=== PATIENT | female | born 1970 | race Caucasian/White ===

== ENCOUNTER 2019-10-08 09:09 | Outpatient (CLI) | payer OTHER, SELFPAY ==
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
--- NOTE | ~2019-10-08 | XR_ITS ---
EXAMINATION: XR hand RT min 3V EXAM DATE: 10/08/2019 09:40 INDICATION: No known recent injury provided at this time. Pain of the right hand. TECHNIQUE: Right hand frontal, lateral and oblique projections obtained and reviewed. There is no pr ior study for comparison. FINDINGS: Right metacarpal bones are unremarkable. There are no acute fractures or dislocations iden tified. There is no subcutaneous gas. The soft tissue is unremarkable. There are no radiopaque fo reign bodies. There is moderate ulnar minus variance. Scapholunate joint space is maintained. There are no bony erosions identified. IMPRESSION: Moderate right ulnar minus variance. Reviewed, dictated and finalized at location B. 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
== END 2019-10-08 09:10 | disposition home or self-care (01) ==
PROVIDERS: PCP Family Medicine; Visit Provider Nurse Practitioner Adult Health
DX: M79.641 Pain in right hand (principal); M54.5 Low back pain
CPT/HCPCS: 72114; 73130

== ENCOUNTER 2020-08-13 12:24 | Outpatient (NON) | payer OTHER, SELFPAY ==
[2020-08-13 23:24] LABS: SARS-CoV-2 RNA PCR Negative
== END 2020-08-13 12:25 ==
PROVIDERS: PCP Family Medicine; Visit Provider Family Medicine
DX: R50.9 Fever, unspecified (principal); R09.81 Nasal congestion; Z20.828 Contact with and (suspected) exposure to other viral communicable diseases
CPT/HCPCS: 87635; C9803; U0003

== ENCOUNTER 2020-11-05 15:09 | Outpatient (CLI) | payer OTHER, SELFPAY ==
--- NOTE | ~2020-11-05 | MM_ITS ---
EXAMINATION: MM screening depethi BI w tc HISTORY: Screening mammogram TECHNIQUE: Craniocaudal and mediolateral oblique 3-D tomosynthesis images were obtained and synthetic 2-D images were generated. CAD analysis was submitted and interpreted. COMPARISON: October 25, 2017 bilateral digital screening mammogram September 20, 2013 diagnostic bilateral digital mammogram and bilateral breast ultrasound August 02, 2013 bilateral digital screening mammogram BREAST PARENCHYMAL COMPOSITION: There are scattered areas of fibroglandular density. FINDINGS: There is no evidence of suspicious mass, calcification, or architectural distortion to sugg est malignancy in either breast. There has been no suspicious interval change. IMPRESSION: 1. No mammographic evidence of malignancy. 2. Recommend routine screening mammography in one year. BI-RADS Category 1: Negative Reviewed, dictated and finalized at location A. 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
== END 2020-11-05 15:10 | disposition home or self-care (01) ==
PROVIDERS: PCP Family Medicine; Visit Provider Student in an Organized Health Care Education/Training Program
DX: Z12.31 Encounter for screening mammogram for malignant neoplasm of breast (principal)
CPT/HCPCS: 77063; 77067

== ENCOUNTER 2020-11-06 12:40 | Outpatient (CLI) | payer OTHER, SELFPAY ==
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
== END 2020-11-06 12:41 | disposition home or self-care (01) ==
PROVIDERS: PCP Family Medicine; Visit Provider Plastic Surgery
DX: S66.40 Unspecified injury of intrinsic muscle, fascia and tendon of thumb at wrist and hand level (principal); X58.XXXA Exposure to other specified factors, initial encounter; M19.031 Primary osteoarthritis, right wrist
CPT/HCPCS: 73221

== ENCOUNTER 2023-02-20 00:04 | Day surgery (SDC) | payer BC, SELFPAY ==
[2023-02-10 13:21] VITALS: BMI 44.1
[2023-02-20 06:27] VITALS: BP 149/76; PULSE 81; RESP 18; TEMP 36.1; O2SAT 97; BMI 44.4
--- NOTE | 2023-02-20 06:35 | WPDANESEPPF ---
Anes - Initial Pre Proc Eval Procedure: Operation Date: 02/20/23 07:30 Proposed Procedures p Screening Colonoscopy - Frederick Manzano MD Date/Time: 02/20/23 06:35 Surgeon: Frederick Manzano MD Pre Op Diagnosis: neoplasm screening Patient Data Age: 52 Gender: F Height: 1.73 m Weight: 132.4 kg Last Vital Signs Temp 36.1 C L 02/20/23 06:27 Pulse 81 02/20/23 06:27 Resp 18 02/20/23 06:27 BP 149/76 H 02/20/23 06:27 Pulse Ox 97 02/20/23 06:27 O2 Del Method Room Air 02/20/23 06:27 Allergies Allergy/AdvReac Type Severity Reaction Status Date / Time erythromycin base Allergy Mild Gastrointestinal Verified 02/20/23 06:25 Upset Home Medications Medication Instructions Recorded Confirmed Type albuterol 90 mcg/actuation aerosol 90 mcg inhalation Q4H PRN 11/07/22 02/20/23 History inhaler Shortness Of Breath hydrochlorothiazide 25 mg tablet 25 mg PO DAILY 11/07/22 02/20/23 History losartan 100 mg tablet 100 mg PO DAILY 11/07/22 02/20/23 History montelukast 10 mg tablet 10 mg PO QHS 11/07/22 02/20/23 History orphenadrine citrate 100 mg 100 mg PO DAILY 11/07/22 02/20/23 History tablet,extended release semaglutide (weight loss) 0.5 0.5 mg (0.5 mL) subcut WEEKLY #2 mL 02/07/23 02/20/23 Rx mg/0.5 mL subcutaneous pen injector (Wegovy) cholecalciferol (vitamin D3) 25 25 mcg PO DAILY 02/10/23 02/20/23 History mcg (1,000 unit) tablet (Vitamin D3) fluticasone propionate 50 1 spray intranasal BID 02/10/23 02/20/23 History mcg/actuation nasal spray,suspension ibuprofen 800 mg tablet 800 mg PO HS 02/10/23 02/20/23 History magnesium glycinate 100 mg tablet 100 mg PO TID 02/10/23 02/20/23 History olopatadine 0.6 % nasal spray 2 spray intranasal DAILY 02/10/23 02/20/23 History Patient hx anesthesia problems: none Family hx anesthesia problems: none Results Review: All pre-operative results and documents have been reviewed as part of the pre-operative evaluation. [facility] Past Medical History Medical History (Updated 02/17/23 @ 14:52 by Jethro Carpenter DO) Allergic rhinitis, unspecified Amenorrhea, unspecified Asthma Asymptomatic premature menopause Body mass index [BMI] 36.0-36.9, adult Encounter for insertion of mirena IUD 2019 Essential (primary) hypertension GERD (gastroesophageal reflux disease) Insomnia, unspecified Mild intermittent asthma Morbid obesity Obstructive sleep apnea (adult) (pediatric) Sinusitis Vitamin D deficiency, unspecified Surgical History Surgical History History of ankle surgery History of dilation and curettage History of endometrial ablation Family History Family History (Updated 01/09/23 @ 15:32 by Yesica Morgan MA) Father Hypertension Lung cancer Heart disease Sibling Hypertension Mother Heart disease Fatty liver Social History Social History (Updated 01/09/23 @ 15:32 by Yesica Morgan MA) Smoking status: Never smoker Second hand tobacco smoke exposure: No Alcohol intake: current Alcohol use details: socially Substance use: never Substance use type: does not use Lack of Transportation: No Lack of Food: Never True Current Housing: I Have Housing Concerned About Future Housing: No Difficulty Paying Gas/Electric Bills: No Difficulty Paying for Meds: No Currently Unemployed: No Difficulty w/ Childcare or Family Care: No Living arrangements: with family Occupation/Education: occupation 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
[2023-02-20] MEDS: LACTATED RINGERS 1,000 ML 150 ML IV CONT (06:47)
--- NOTE | 2023-02-20 07:26 | PM.HPGS ---
History of Present Illness History of Present Illness Consent: Risks, benefits, and alternatives have been discussed and questions answered. Patient agrees to proceed with procedure. Chief complaint: neoplasm screening Narrative: Renee France is a 52 year old female here for screening colonoscopy Review of Systems Constitutional: Constitutional: Denies headache(s) and Denies weakness Eyes: Eyes: Denies blurry vision ENT: Reports Normal hearing present, Denies headache(s) and Denies neck pain Cardiovascular: Cardiovascular: Denies chest pain and Denies dyspnea Respiratory: Respiratory: Denies dyspnea Gastrointestinal: Gastrointestinal: Reports no additional gastrointestinal complaints Genitourinary: Genitourinary: Denies dysuria Musculoskeletal: Musculoskeletal: Denies neck pain Integumentary/Breasts: Skin/Breast: Denies dry skin Neurologic: Reports Normal hearing present, Denies headache(s) and Denies weakness Psychiatric: Psychiatric: Denies anxiety Endocrine: Endocrine: Denies change in body appearance Hematologic/Lymphatic: Hematologic/Lymphatic: Denies easy bleeding Allergic/Immunologic: Allergic/Immunologic: Denies urticaria PMFSH Past Medical History Medical History (Updated 02/20/23 @ 07:27 by Frederick Manzano MD) Allergic rhinitis, unspecified Amenorrhea, unspecified Asthma Asymptomatic premature menopause Body mass index [BMI] 36.0-36.9, adult Colon cancer screening Encounter for insertion of mirena IUD 2019 Essential (primary) hypertension GERD (gastroesophageal reflux disease) Insomnia, unspecified Mild intermittent asthma Morbid obesity Obstructive sleep apnea (adult) (pediatric) Sinusitis Vitamin D deficiency, unspecified Surgical History Surgical History History of ankle surgery History of dilation and curettage History of endometrial ablation Family History Family History (Updated 01/09/23 @ 15:32 by Yesica Morgan MA) Father Hypertension Lung cancer Heart disease Sibling Hypertension Mother Heart disease Fatty liver Social History Social History (Updated 01/09/23 @ 15:32 by Yesica Morgan MA) Smoking status: Never smoker Second hand tobacco smoke exposure: No Alcohol intake: current Alcohol use details: socially Substance use: never Substance use type: does not use Lack of Transportation: No Lack of Food: Never True Current Housing: I Have Housing Concerned About Future Housing: No Difficulty Paying Gas/Electric Bills: No Difficulty Paying for Meds: No Currently Unemployed: No Difficulty w/ Childcare or Family Care: No Living arrangements: with family Occupation/Education: occupation 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 Gender identity (if verbalized by the patient): Female Sexual Orientation (if Verbalized by the Patient): Straight or Heterosexual Spiritual care concerns: No Meds Home Medications and Allergies Home Medications Medication Instructions Recorded Confirmed Type albuterol 90 mcg/actuation aerosol 90 mcg inhalation Q4H PRN 11/07/22 02/20/23 History inhaler Shortness Of Breath hydrochlorothiazide 25 mg tablet 25 mg PO DAILY 11/07/22 02/20/23 History losartan 100 mg tablet 100 mg PO DAILY 11/07/22 02/20/23 History montelukast 10 mg tablet 10 mg PO QHS 11/07/22 02/20/23 History orphenadrine citrate 100 mg 100 mg PO DAILY 11/07/22 02/20/23 History tablet,extended release semaglutide (weight loss) 0.5 0.5 mg (0.5 mL) subcut WEEKLY #2 mL 02/07/23 02/20/23 Rx mg/0.5 mL subcutaneous pen injector (Yvonne) cholecalciferol (vitamin D3) 25 25 mcg PO DAILY 02/10/23 02/20/23 History mcg (1,000 unit) tablet (Vitamin D3) fluticasone propionate 50 1 spray intranasal BID 02/10/23 02/20/23 History mcg/actuation nasal spray,suspension ibuprofen 800 mg tablet 800 mg PO HS 02/10/23 02/20/23 Histo
[2023-02-20 07:43] VITALS: BP 119/75; PULSE 82; RESP 19; O2SAT 96
[2023-02-20 07:53] VITALS: BP 131/80; PULSE 74; RESP 16; O2SAT 99
[2023-02-20 08:03] VITALS: BP 126/85; PULSE 73; RESP 19; O2SAT 99
== END 2023-02-20 08:08 | disposition home or self-care (01) ==
PROVIDERS: PCP Family Medicine; Visit Provider Internal Medicine Gastroenterology
PROC: 0DJD8ZZ Inspection of Lower Intestinal Tract, Via Natural or Artificial Opening Endoscopic (ICD-10-PCS; CPT 45378; principal; 2023-02-20 07:30)
DX: Z12.11 Encounter for screening for malignant neoplasm of colon (principal); J45.20 Mild intermittent asthma, uncomplicated; G47.33 Obstructive sleep apnea (adult) (pediatric); E55.9 Vitamin D deficiency, unspecified; K21.9 Gastro-esophageal reflux disease without esophagitis; I10 Essential (primary) hypertension; E66.01 Morbid (severe) obesity due to excess calories; Z68.41 Body mass index [BMI] 40.0-44.9, adult; Z79.51 Long term (current) use of inhaled steroids; Z79.899 Other long term (current) drug therapy
CPT/HCPCS: 45378; J2704; J7120

== ENCOUNTER 2023-03-09 08:00 | Outpatient (RCR) | payer BC, SELFPAY ==
[2022-12-15 08:26] VITALS: BMI 46.7
[2022-12-15 14:22] VITALS: BMI 46.7
[2023-03-09 13:57] VITALS: BMI 44.2; BMI 46.7
== END 2023-03-13 08:46 | disposition home or self-care (01) ==
LOC: ANHDMC 08:00
PROVIDERS: PCP Family Medicine; Visit Provider Family Medicine
DX: E66.01 Morbid (severe) obesity due to excess calories (principal); Z71.3 Dietary counseling and surveillance
CPT/HCPCS: 97802; 97803

== ENCOUNTER 2023-04-03 08:26 | Outpatient (CLI) | payer BC, SELFPAY ==
--- NOTE | ~2023-04-03 | MM_ITS ---
EXAMINATION: MM screening [facility] BI w tc HISTORY: Screening mammogram TECHNIQUE: Craniocaudal and mediolateral oblique 3-D tomosynthesis images were obtained and synthetic 2-D images were generated. CAD analysis was submitted and interpreted. COMPARISON: 11/05/2020, 10/25/2017 BREAST PARENCHYMAL COMPOSITION: There are scattered areas of fibroglandular density. FINDINGS: No suspicious mass, calcification, or architectural distortion are identified in either alex ast to suggest malignancy. There has been no suspicious interval change. IMPRESSION: 1. No mammographic evidence of malignancy. 2. Recommend routine screening mammography in one year. BI-RADS Category 1: Negative Reviewed, dictated and finalized at location A.
== END 2023-04-03 08:27 | disposition home or self-care (01) ==
PROVIDERS: PCP Family Medicine; Visit Provider Obstetrics & Gynecology
DX: Z12.31 Encounter for screening mammogram for malignant neoplasm of breast (principal)
CPT/HCPCS: 77063; 77067

== ENCOUNTER 2024-06-10 08:41 | Outpatient (CLI) | payer BC, SELFPAY ==
--- NOTE | ~2024-06-10 | CT_ITS ---
EXAMINATION: CT IAC/mastoids BI wo con DATE: 06/10/2024 09:04 INDICATION: Conductive hearing loss. TECHNIQUE: Computed tomography (CT) of the temporal bones was performed without intravenous contrast. Automated exposure control and iterative reconstruction technique were employed. The dose-length pro duct was 281.16 mGy-cm. COMPARISON: Head CT 05/20/2019 FINDINGS: RIGHT TEMPORAL BONE: The internal auditory canal, cochlea, vestibule, semicircular canals, vestibular aqueduct, and caroti d canal are normal. There is a high riding jugular bulb. The facial nerve course, ossicles, tympanic membrane, Prussak space, scutum, and external artery canal are normal. There is a trace right mastoid effusion. LEFT TEMPORAL BONE: The internal auditory canal, cochlea, vestibule, semicircular canals, vestibular aqueduct, jugular bu lb, carotid canal, facial nerve course, ossicles, Prussak space, scutum, tympanic membrane, mastoid a ir cells, and external artery canal are normal. IMPRESSION: 1. No etiology for conductive hearing loss. Reviewed, dictated and finalized at location A.
== END 2024-06-10 08:42 | disposition home or self-care (01) ==
LOC: MICIMG 08:43
DX: H69.82 Other specified disorders of Eustachian tube, left ear (principal); H90.2 Conductive hearing loss, unspecified
CPT/HCPCS: 70480

== ENCOUNTER 2024-06-20 07:29 | Outpatient (CLI) | payer BC, SELFPAY ==
--- NOTE | ~2024-06-20 | MM_ITS ---
EXAMINATION: MM screening [facility] BI w tc HISTORY: Screening TECHNIQUE: Craniocaudal and mediolateral oblique 3-D tomosynthesis images were obtained and synthetic 2-D images were generated. CAD analysis was submitted and interpreted. COMPARISON: Comparison to multiple prior studies sequentially, with oldest reviewed study dated 10/25. BREAST PARENCHYMAL COMPOSITION: Dense: The breasts are heterogeneously dense, which may obscure small masses FINDINGS: There has been increasing density since prior examinations. Consider hormone replacement th erapy and weight loss. There is no evidence of suspicious mass, calcification, or architectural disto rtion to suggest malignancy in either breast. There has been no suspicious interval change. IMPRESSION: 1. No mammographic evidence of malignancy. 2. Recommend routine screening mammography in one year. Reviewed, dictated and finalized at location B.
== END 2024-06-20 07:30 | disposition home or self-care (01) ==
LOC: ANHIMG 07:31
PROVIDERS: Visit Provider Obstetrics & Gynecology
DX: Z12.31 Encounter for screening mammogram for malignant neoplasm of breast (principal)
CPT/HCPCS: 77063; 77067

== ENCOUNTER 2024-07-08 12:57 | Outpatient (CLI) | payer BC, SELFPAY ==
--- NOTE | 2024-07-08 13:00 | ECG_ITS ---
Test Date: 2024-07-08 13:23:26 Measurements Intervals [place] Rate: 76 P: 33 LA: 152 QRS: 21 QRSD: 106 T: 18 QT: 387 QTc: 437 Interpretive Statements SINUS RHYTHM No previous ECG available for comparison Electronically Signed On 07-08-2024 13:33:27 CDT by Delebrt Jain M.D.
[2024-07-08 13:49] LABS: Anion Gap 10 mmol/L (4-12); Blood Urea Nitrogen 17 mg/dL (7-17); Calcium 9.7 mg/dL (8.4-10.2); Carbon Dioxide 30 mmol/L (22-30); Chloride 99 mmol/L (98-107); Estimated Glomerular Filt Rate > 60; Glucose 93 mg/dL (65-110); Potassium 3.4 mmol/L (3.4-5.0); Sodium 139 mmol/L (137-145)
== END 2024-07-08 12:58 | disposition home or self-care (01) ==
PROVIDERS: Anesthesiology; Visit Provider Urology
DX: N81.10 Cystocele, unspecified (principal); I10 Essential (primary) hypertension; Z79.899 Other long term (current) drug therapy; Z01.818 Encounter for other preprocedural examination
CPT/HCPCS: 36415; 80048; 86850; 86900; 86901; 93005

== ENCOUNTER 2024-07-19 11:05 | Observation (INO) | payer BC, SELFPAY ==
[2024-07-19] VITALS (20 sets, daily range): BP systolic 115–171; BP diastolic 59–94; PULSE 75–101; RESP 13–18; TEMP 36.9–39; O2SAT 94–100
--- NOTE | ~2024-07-19 | XR_ITS ---
Portable chest x-ray Comparison: 05/20/2019 Clinical History: Fever, shortness of breath Findings: Lungs are clear, without focal consolidation or pleural effusion. Cardiomediastinal silho uette is stable. Bones and soft tissues are unremarkable. Impression: Normal chest. Reviewed, dictated and finalized at [facility]. OR MASTER Impression: Normal chest.
--- NOTE | ~2024-07-19 | CT_ITS ---
EXAMINATION: CTA chest PE abdomen pel DATE: 07/19/2024 13:10 INDICATION: Abdominal pain. Chest pain. Fever. TECHNIQUE: Computed tomography angiography (CTA) of the chest was performed with 200 mL Omnipaque-350 intravenous contrast timed to evaluate the pulmonary arteries. Coronal maximum intensity projection 3D-reconstructions were created by the technologist. Computed tomography (CT) of the abdomen and pelv is was performed with intravenous contrast. Automated exposure control and iterative reconstruction t echnique were employed. The dose-length product was 3021.32 mGy-cm. COMPARISON: None. FINDINGS: CTA chest: The lungs demonstrate mild dependent atelectasis. There is a trace right pleural effusion. The heart size is normal. No pericardial effusion. There is no pulmonary embolus. There is moderate thoracic spondylosis. CT abdomen and pelvis: The liver, gallbladder, spleen, pancreas, and right adrenal gland are normal. There is a 2.8 cm mass in left adrenal gland measuring soft tissue attenuation. Left kidney is normal . There is a 13 mm cyst in right kidney. There are no dilated loops of bowel. The visualized portion of the appendix is normal. There is a small sliding hiatal hernia. There is a small volume of ascites . There is hematoma in the hysterectomy bed measuring 8.0 x 7.1 x 10.1 cm. There is gas in the surgic al bed and left anterior body wall, consistent with recent surgery. There are no pathologically enlar ged lymph nodes. The bones are unremarkable. IMPRESSION: 1. Hematoma in the hysterectomy bed measuring 8.0 x 7.1 x 10.1 cm. 2. Small volume of ascites. 3. 2.8 cm left adrenal mass. In the absence of known malignancy, this finding is likely an adenoma. 4. No pulmonary embolus. Reviewed, dictated and finalized at location A. IFIED OPHTHALMIC SURGICAL ASSISTANT IMPRESSION: 1. Hematoma in the hysterectomy bed measuring 8.0 x 7.1 x 10.1 cm. 2. Small volume of ascites. 3. 2.8 cm left adrenal mass. In the absence of known malignancy, this finding i s likely an adenoma. 4. No pulmonary embolus.
--- NOTE | 2024-07-19 11:48 | ECG_ITS ---
Test Date: 2024-07-19 13:26:41 Measurements Intervals [place] Rate: 86 P: 22 VT: 159 QRS: 26 QRSD: 99 T: 21 QT: 355 QTc: 427 Interpretive Statements SINUS RHYTHM BASELINE ARTIFACT- I, III, AVR, AVL, AVF NORMAL ECG Compared to ECG 07/08/2024 13:23:26 No significant changes Electronically Signed On 07-19-2024 13:45:56 FIBERGLASS MACHINE OPERATOR by Efren Marin D.O.
[2024-07-19 12:22] LABS: Basophils Percent Auto 0.3 % (0.2-1.2); Eosinophils Absolute Auto 0.1 K/mm3 (0-0.3); Eosinophils Percent Auto 1.2 % (0-4.4); Hematocrit 32.9 % (37.0-47.0); Hemoglobin 10.9 g/dL (12.0-15.0); Immature Granulocyte Absolute 0.03 K/mm3 (0.00-0.031); Immature Granulocyte Percent A 0.3 % (0-0.5); Lymphocytes Percent Auto 11.3 % (18.3-44.2); Mean Corpuscular HGB Conc 33.1 g/dl (32-36); Mean Corpuscular Hemoglobin 27.3 pg (26-34); Mean Corpuscular Volume 82.3 fl (80-100); Mean Platelet Volume 9.6 fl (7.4-10.4); Monocytes Absolute Auto 0.8 K/mm3 (0.1-0.6); Monocytes Percent Auto 8.7 % (2.6-8.5); Neutrophils Absolute Auto 6.9 K/mm3 (1.3-6.7); Neutrophils Percent Auto 78.2 % (45.5-73.1); Platelet Count Result 350 k/mm3 (150-375); Red Cell Distribution Width 14.3 % (11.5-14.5); White Blood Count 8.9 K/mm3 (4.5-10.0)
[2024-07-19 12:33] LABS: Prothrombin Time 13.8 Seconds (11.1-14.7)
[2024-07-19 12:34] LABS: Partial Thromboplastin Time 41.7 Seconds (22.3-36.8)
[2024-07-19 12:36] LABS: Alanine Aminotransferase 17 U/L (6-35); Albumin Level 4.1 g/dL (3.5-5.1); Alkaline Phosphatase 60 U/L (38-126); Anion Gap 5 mmol/L (4-12); Aspartate Amino Transferase 19 U/L (14-36); Bilirubin,Total 0.7 mg/dL (0.2-1.3); Blood Urea Nitrogen 9 mg/dL (7-17); Calcium 9.4 mg/dL (8.4-10.2); Carbon Dioxide 28 mmol/L (22-30); Chloride 101 mmol/L (98-107); Estimated CRCL calculation 140 ml/min; Estimated Glomerular Filt Rate > 60; Glucose 101 mg/dL (65-110); Potassium 3.8 mmol/L (3.4-5.0); Sodium 134 mmol/L (137-145)
[2024-07-19 12:37] LABS: Lactic Acid Reflex 1.1 mmol/L (0.7-2.0)
[2024-07-19 12:46] LABS: Troponin I < 0.012 ng/mL (0.000-0.034)
[2024-07-19 13:02] LABS: Procalcitonin 0.1 ng/mL
[2024-07-19 13:02] LABS: Add Urine Microscopic? YES; Appearance Urine Clear (Clear); Bacteria Urine None Seen /hpf; Bilirubin Urine Negative (Negative); Blood Urine 1+ (Negative); Color Urine Yellow (Yellow); Glucose Urine UA Negative (Negative); Ketones Urine Negative (Negative); Leukocyte Esterase Ur Trace LEU/UL (Negative); Nitrate Urine Negative (Negative); Non Pathogenic Casts 0-2; Protein Urine Negative (Negative); Specific Grav Ur 1.011 (1.001-1.035); Squamous Epithelial Cell Urine None Seen /hpf (Few); Urobilinogen Urine 0.2 mg/dL (<2.0); WBC Urine 0-5 /hpf (0-3)
[2024-07-19] MEDS: SODIUM CHLORIDE 0.9% IV 1,000 ML 999 ML IV CONT (13:25)
[2024-07-19] MEDS: MORPHINE SULFATE (*CRX) 2 MG/ML INJ IV PUSH (13:25)
[2024-07-19] MEDS: ONDANSETRON INJ 4 MG/2 ML VIAL IV PUSH ×2 (13:25→17:13)
[2024-07-19 13:35] LABS: Influenza A QL RT-PCR Negative (Negative); Influenza B QL RT-PCR Negative (Negative); RSV RNA, RT-PCR Negative (Negative); SARS-CoV-2 RNA PCR Negative (Negative)
[2024-07-19] MEDS: ACETAMINOPHEN 500 MG TABLET 1000 MG PO ×3 (13:47→23:13)
--- NOTE | 2024-07-19 14:21 | P.HP_ITS ---
H&P: HPI History of Present Illness Date/Time: 07/19/24 14:21 Chief Complaint: abdominal pain/fever Narrative: Renee is a 54yo P1001, who presented to the ER after calling the office saying she was having increase in pelvic pain and fever, shortness of breath. She had a hysterectomy with vaginal repairs for prolapse 07/15/24. In the ER, CTA of the chest/abdomen/pelvis was performed and shows a large pelvic hematoma. Her WBC is 8.9. Her hemoglobin is stable from post-op levels. She has been NPO since yesterday as she has had a lack of appetite. She reports she was having some light vaginal bleeding, but didn't notice any today. Her fever was as high was 102. Review of Systems Constitutional: Constitutional: Reports chills, Reports fatigue, Reports fever(s), Reports lethargy and Reports poor appetite Cardiovascular: Cardiovascular: Denies chest pain and Denies rapid heart rate Respiratory: Respiratory: Denies cough and Reports dyspnea Gastrointestinal: Gastrointestinal: Reports abdominal pain, Reports bloating and Reports nausea Genitourinary: Genitourinary: Reports abnormal vaginal bleeding and Reports pelvic pain PMFSH Past Medical History Medical History Allergic rhinitis, unspecified Amenorrhea, unspecified Asthma Asthma Asymptomatic premature menopause Body mass index [BMI] 36.0-36.9, adult Colon cancer screening Encounter for insertion of mirena IUD 2018 Essential (primary) hypertension GERD (gastroesophageal reflux disease) Hypertension Insomnia, unspecified Mild intermittent asthma Morbid obesity Obesity due to excess calories Obstructive sleep apnea (adult) (pediatric) Sinusitis Vaginal delivery Vitamin D deficiency, unspecified Surgical History Surgical History History of ankle surgery History of dilation and curettage History of dilation and curettage History of endometrial ablation History of endometrial ablation Family History Family History Father Hypertension Lung cancer Heart disease Sibling Hypertension Mother Heart disease Fatty liver Mother Family history of hypercholesterolemia Father Hypertension, Onset Age: 25 Other Family history of arthritis Family history of lung cancer Family history of thyroid disease Social History Social History Smoking status: Never smoker Second hand tobacco smoke exposure: No Alcohol intake: current Alcohol use details: socially Substance use: never Substance use type: does not use Do You Feel Safe in your Home?: Yes Lack of Transportation: No Lack of Food: Never True Current Housing: I Have Housing Concerned About Future Housing: No Difficulty Paying Gas/Electric Bills: No Difficulty Paying for Meds: No Currently Unemployed: No Difficulty w/ Childcare or Family Care: No Living arrangements: with family Occupation/Education: occupation 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 Gender identity (if verbalized by the patient): Female Sexual Orientation (if Verbalized by the Patient): Straight or Heterosexual Spiritual care concerns: No Meds Home Medications and Allergies Home Medications Medication Instructions Recorded Confirmed Type garlic 1,000 mg capsule 1,000 mg PO DAILY 10/17/19 07/03/24 History turmeric root extract 500 mg 500 mg PO DAILY 10/17/19 07/03/24 History capsule levonorgestrel 21 mcg/24 hr (up to 1 device intrauterine ONCE 12/16/19 07/03/24 History 8 years) 52 mg intrauterine device (Mirena) albuterol 90 mcg/actuation aerosol 90 mcg inhalation Q4H PRN 11/07/22 07/03/24 History inhaler Shortness Of Breath cholecalciferol (vitamin D3) 25 25 mcg PO DAILY 02/10/23 07/03/24 History mcg (1,000 unit) tablet (Vitamin D3) ibuprofen 800 mg tablet 800 mg PO HS 02/10/23 07/03/24 History krill oil 500 mg capsule 1,000 mg PO DAILY 05/01/23 07/03/24 History magnesium 250 mg tablet 250 mg PO DAILY 05/01/23 07/03/24 History bdsmylcr-djif-xmzo 8 mg-folic 400 1 tablet PO DAILY 05/01/23 07/03/24 History mcg-K 50 mcg-lutein 300 mcg tablet (Centrum Silver Women) fluticasone propionate 50 1 spray intranasal BID #48 grams 10/30/23 07/03/24 Rx mcg/actuation nasal spray,suspension levocetirizine 5 mg tablet (Xyzal) 5 mg PO DAILY 01/18/24 07/03/24 History hydrochlorothiazide 25 mg tablet 25 mg PO DAILY #90 tabs 05/10/24 07/03/24 Rx montelukast 10 mg tablet 10 mg PO QHS #90 tabs 06/06/24 07/03/24 Rx azelastine 137 mcg (0.1 %) nasal 1 spray intranasal BID 07/03/24 07/03/24 His tory spray peg [id number] 1 1 drp EACH EYE 4-6XD PRN Dry Eyes 07/03/24 07/03/24 History %-0.2 %-0.2 % eye drops (Dry Eye Relief) acetaminophen 500 mg tablet 1,000 mg PO TID #90 tabs 07/15/24 Rx docusate sodium 100 mg capsule 100 mg PO BID #90 caps 07/15/24 Rx (Colace) ibuprofen 800 mg tablet 800 mg PO TID #40 tabs 07/15/24 Rx oxycodone 5 mg tablet See Rx Instructions .Route 07/15/24 Rx .COMPLEX PRN pain #24 tabs losartan 100 mg tablet 100 mg PO DAILY #90 tabs 07/16/24 Rx Allergies Allergy/AdvReac Type Severity Reaction Status Date / Time erythromycin base Allergy Mild Gastrointestinal Verified 07/19/24 11:57 Upset Vital Signs Vital Signs - 24 hr 07/19/24 11:50 07/19/24 13:29 Temperature 100.9 F H Pulse Rate 93 91 Respiratory Rate 16 16 Blood Pressure 171/94 H 150/79 H Pulse Oximetry 97 99 Oxygen Delivery Room Air Exam Const: General: cooperative Resp: Effort & Inspection: normal respiratory effort GI: Inspection: incision (x4 w/o signs of infection), Pannus present and obesity GI Palp: Yes abdominal tenderness : Other: deferred to OR Skin: General skin exam: normal color Neuro: General: patient oriented x3 Extrem: General: normal to inspection Psych: Appearance: grossly normal Affect: normal affect Attitude: cooperative H&P: Results Labs Labs: Short CBC 07/19/24 Range/Units 12:14 WBC 8.9 (4.5-10.0) K/mm3 Hgb 10.9 L (12.0-15.0) g/dL Hct 32.9 L (37.0-47.0) % Plt Count 350 (150-375) k/mm3 BMP 07/19/24 12:14 Sodium 134 L Potassium 3.8 Chloride 101 Carbon Dioxide 28 BUN 9 Creatinine 0.60 L Glucose 101 Calcium 9.4 Cardiac Enzymes 07/19/24 Range/Units 12:14 Troponin I < 0.012 (0.000-0.034) ng/mL Liver Function 07/19/24 Range/Units 12:14 Total Bilirubin 0.7 (0.2-1.3) mg/dL AST 19 (14-36) U/L ALT 17 (6-35) U/L Alkaline Phosphatase 60 (38-126) U/L Albumin 4.1 (3.5-5.1) g/dL Urine 07/19/24 Range/Units 12:52 Urine Color Yellow (Yellow) Urine Appearance Clear (Clear) Urine pH 7.0 (5.0-9.0) Ur Specific [place] 1.011 (1.001-1.035) Urine Protein Negative (Negative) mg/dL Urine Glucose (UA) Negative (Negative) mg/dL Assessment and Plan Assessment and plan (1) S/P laparoscopic hysterectomy: Code(s): Z90.710 - Acquired absence of both cervix and uterus Status: Acute (2) Pelvic hematoma: Status: Acute (3) Fever: Code(s): R50.9 - Fever, unspecified Status: Acute Plan - Large pelvic hematoma s/p hysterectomy noted on CT scan - Will start ceftriaxone 2g IV q24h + metronidazole 500mg IV q8h - Will take for diagnostic laparoscopy with evacuation of pelvic hematoma; risks and benefits discussed in detail - Will plan for admission after surgery for 48-72 hours of IV antibiotics
--- NOTE | 2024-07-19 14:42 | ED_ITS ---
HPI - General Adult General Chief complaint: Fever Stated complaint: fever post-op Time Seen by Provider: 07/19/24 11:35 History of Present Illness HPI narrative: patient 54-year-old female who presents emergency department with chief complaint of fever. Patient reports that she just had a hysterectomy performed by Dr. Horton and a bladder sling patient reports that she is having low abdominal pain also has had some tightness in her chest the patient states that she has had a cough as well patient reports that the symptoms are not improved with ibuprofen and Tylenol reports that she has also had some nausea. Related Data Home Medications Medication Instructions Recorded Confirmed garlic 1,000 mg capsule 1,000 mg PO DAILY 10/17/19 07/03/24 turmeric root extract 500 mg 500 mg PO DAILY 10/17/19 07/03/24 capsule levonorgestrel 21 mcg/24 hr (up to 1 device intrauterine ONCE 12/16/19 07/03/24 8 years) 52 mg intrauterine device (Mirena) albuterol 90 mcg/actuation aerosol 90 mcg inhalation Q4H PRN 11/07/22 07/03/24 inhaler Shortness Of Breath cholecalciferol (vitamin D3) 25 25 mcg PO DAILY 02/10/23 07/03/24 mcg (1,000 unit) tablet (Vitamin D3) ibuprofen 800 mg tablet 800 mg PO HS 02/10/23 07/03/24 krill oil 500 mg capsule 1,000 mg PO DAILY 05/01/23 07/03/24 magnesium 250 mg tablet 250 mg PO DAILY 05/01/23 07/03/24 swabanom-yhnp-uahx 8 mg-folic 400 1 tablet PO DAILY 05/01/23 07/03/24 mcg-K 50 mcg-lutein 300 mcg tablet (Centrum Silver Women) levocetirizine 5 mg tablet (Xyzal) 5 mg PO DAILY 01/18/24 07/03/24 azelastine 137 mcg (0.1 %) nasal 1 spray intranasal BID 07/03/24 07/03/24 spray peg [id number] 1 1 drp EACH EYE 4-6XD PRN Dry Eyes 07/03/24 07/03/24 %-0.2 %-0.2 % eye drops (Dry Eye Relief) Allergies Allergy/AdvReac Type Severity Reaction Status Date / Time erythromycin base Allergy Mild Gastrointestinal Verified 07/19/24 11:57 Upset Review of Systems Review of Systems: A 10 system review of systems was completed on the patient and is negative except for what is stated in the HPI. Nursing and ancillary documentation was reviewed. PMFSH Past Medical History Medical History Allergic rhinitis, unspecified Amenorrhea, unspecified Asthma Asthma Asymptomatic premature menopause Body mass index [BMI] 36.0-36.9, adult Colon cancer screening Encounter for insertion of mirena IUD 2019 Essential (primary) hypertension GERD (gastroesophageal reflux disease) Hypertension Insomnia, unspecified Mild intermittent asthma Morbid obesity Obesity due to excess calories Obstructive sleep apnea (adult) (pediatric) Sinusitis Vaginal delivery Vitamin D deficiency, unspecified Surgical History Surgical History History of ankle surgery History of dilation and curettage History of dilation and curettage History of endometrial ablation History of endometrial ablation Family History Family History Father Hypertension Lung cancer Heart disease Sibling Hypertension Mother Heart disease Fatty liver Mother Family history of hypercholesterolemia Father Hypertension, Onset Age: 25 Other Family history of arthritis Family history of lung cancer Family history of thyroid disease Social History Social History Smoking status: Never smoker Second hand tobacco smoke exposure: No Alcohol intake: current Alcohol use details: socially Substance use: never Substance use type: does not use Do You Feel Safe in your Home?: Yes Lack of Transportation: No Lack of Food: Never True Current Housing: I Have Housing Concerned About Future Housing: No Difficulty Paying Gas/Electric Bills: No Difficulty Paying for Meds: No Currently Unemployed: No Difficulty w/ Childcare or Family Care: No Living arrangements: with family Occupation/Education: occupation 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 HEAD: Normocephalic, atraumatic. EYES: PERRLA and EOMI. ENT: Nares clear, no rhinorrhea or epistaxis. Mucous membranes moist. NECK: Supple. CHEST: Clear to auscultation. No respiratory distress. HEART: Regular rate and rhythm. No murmur heard. Normal peripheral pulses. ABDOMEN: Soft, Tenderness to palpation in the lower quadrants of the abdomen, nondistended, normal active bowel sounds. EXTREMITIES: Normal range of motion. No edema. SKIN: Warm, dry, no rash. NEURO: No focal deficits. Alert and oriented x3. PSYCH: Normal mood and affect. Course Vital Signs Vital signs: Vital Signs Temperature 38.3 C H 07/19/24 11:50 Pulse Rate 93 07/19/24 11:50 Respiratory Rate 16 07/19/24 11:50 Blood Pressure 171/94 H 07/19/24 11:50 Pulse Oximetry 97 07/19/24 11:50 Oxygen Delivery Room Air 07/19/24 11:50 Temperature 38.3 C H 07/19/24 11:50 Pulse Rate 91 07/19/24 13:29 Respiratory Rate 16 07/19/24 13:29 Blood Pressure 150/79 H 07/19/24 13:29 Pulse Oximetry 99 07/19/24 13:29 Oxygen Delivery Room Air 07/19/24 11:50 Medical Decision Making MDM Narrative Medical decision making narrative: differential diagnosis includes sepsis, COVID, intra-abdominal infection, postoperative hematoma, pneumonia, PE the patient is negative for COVID flu and RSV urinalysis showed no evidence UTI CBC showed a white count of 8.9 hemoglobin was 10.9 this is unchanged from preoperative CT scan of the chest for PE was negative CT scan of the abdomen pelvis showed evidence of a hematoma the case was discussed with Dr. 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 who plans to take the patient to the operating room for surgical debridement of the hematoma patient was started on Flagyl and given 2 g of Ancef in the emergency department Vital Signs Vital Signs: Vital Signs Temperature 38.3 C H 07/19/24 11:50 Pulse Rate 93 07/19/24 11:50 Respiratory Rate 16 07/19/24 11:50 Blood Pressure 171/94 H 07/19/24 11:50 Pulse Oximetry 97 07/19/24 11:50 Oxygen Delivery Room Air 07/19/24 11:50 Temperature 38.3 C H 11/08/24 11:50 Pulse Rate 91 07/19/24 13:29 Respiratory Rate 16 07/19/24 13:29 Blood Pressure 150/79 H 07/19/24 13:29 Pulse Oximetry 99 07/19/24 13:29 Oxygen Delivery Room Air 07/19/24 11:50 Lab Data 07/19/24 12:14 07/19/24 12:14 Labs: Lab Results 07/19/24 07/19/24 07/19/24 Range/Units 12:13 12:14 12:52 WBC 8.9 (4.5-10.0) K/mm3 RBC 4.00 L (4.2-5.4) M/mm3 Hgb 10.9 L (12.0-15.0) g/dL Hct 32.9 L (37.0-47.0) % MCV 82.3 (80-100) fl MCH 27.3 (26-34) pg MCHC 33.1 (32-36) g/dl RDW 14.3 (11.5-14.5) % Plt Count 350 (150-375) k/mm3 MPV 9.6 (7.4-10.4) fl Immature Gran % (Auto) 0.3 (0-0.5) % Neut % (Auto) 78.2 H (45.5-73.1) % Lymph % (Auto) 11.3 L (18.3-44.2) % [place] % (Auto) 8.7 H (2.6-8.5) % Eos % (Auto) 1.2 (0-4.4) % Baso % (Auto) 0.3 (0.2-1.2) % Lymph # (Auto) 1.00 (0.9-3.2) K/mm3 [place] # (Auto) 0.8 H (0.1-0.6) K/mm3 Eos # (Auto) 0.1 (0-0.3) K/mm3 Baso # (Auto) 0.0 (0.0-0.1) K/mm3 Abs Immat Gran (auto) 0.03 (0.00-0.031) K/mm3 Absolute Neuts (auto) 6.9 H (1.3-6.7) K/mm3 Absolute Nucleated RBC 0.000 (0.0-0.012) K/mm3 Nucleated RBC % 0.0 (0.0-0.2) % PT 13.8 (11.1-14.7) Seconds INR 1.0 APTT 41.7 H (22.3-36.8) Seconds Sodium 134 L (137-145) mmol/L Potassium 3.8 (3.4-5.0) mmol/L Chloride 101 (98-107) mmol/L Carbon Dioxide 28 (22-30) mmol/L Anion Gap 5 (4-12) mmol/L BUN 9 (7-17) mg/dL Creatinine 0.60 L (0.7-1.0) mg/dL Estim Creat Clear Calc 140 ml/min Estimated GFR > 60 (59 - ) Glucose 101 (65-110) mg/dL Lactic Acid 1.1 (0.7-2.0) mmol/L Calcium 9.4 (8.4-10.2) mg/dL Total Bilirubin 0.7 (0.2-1.3) mg/dL AST 19 (14-36) U/L ALT 17 (6-35) U/L Alkaline Phosphatase 60 (38-126) U/L Troponin I < 0.012 (0.000-0.034) ng/mL Total Protein 8.0 (6.3-8.2) g/dL Albumin 4.1 (3.5-5.1) g/dL Procalcitonin 0.1 ng/mL Urine Color Yellow (Yellow) Urine Appearance Clear (Clear) Urine pH 7.0 (5.0-9.0) Ur Specific [place] 1.011 (1.001-1.035) Urine Protein Negative (Negative) mg/dL Urine Glucose (UA) Negative (Negative) mg/dL Urine Ketones Negative (Negative) mg/dL Ur Blood (Man) 1+ H (Negative) Urine Nitrate Negative (Negative) Urine Bilirubin Negative (Negative) Urine Urobilinogen 0.2 (<2.0) mg/dL Leukocyte Esterase Rfl Trace H (Negative) MAYDA/UL Urine RBC 6-10 H (0-2) /hpf Urine WBC 0-5 (0-3) /hpf Ur Squamous Epith Cells None seen (Few) /hpf Urine Bacteria None seen /hpf Urine Casts 0-2 Influenza A (RT-PCR) Negative (Negative) Influenza B (RT-PCR) Negative (Negative) RSV (RT-PCR) Negative (Negative) SARS-CoV-2 RNA (RT-PCR) Negative (Negative) Discharge Plan Discharge Clinical Impression: Postoperative fever, Pelvic hematoma Patient Disposition: Still a Patient Condition: Stable Instructions: Antibiotic Form Prescriptions: No Action albuterol 90 mcg/actuation aerosol 90 mcg inhalation Q4H PRN (Reason: Shortness Of Breath) magnesium 250 mg tablet 250 mg PO DAILY krill oil 500 mg capsule 1,000 mg PO DAILY Centrum Silver Women 8 mg iron-400 mcg-50 mcg tablet 1 tablet PO DAILY garlic 1,000 mg capsule 1,000 mg PO DAILY turmeric root extract 500 mg capsule 500 mg PO DAILY Mirena 20 mcg/24 hours (5 yrs) 52 mg intrauterine device 1 device I-UTERINE ONCE Rx Instructions: as a single dose fluticasone propionate 50 mcg/actuation spray,suspension 1 spray INTRANASAL BID Qty: 48 0RF Rx Instructions: administer into each nostril levocetirizine [Xyzal] 5 mg tablet 5 mg PO DAILY ibuprofen 800 mg Tablet 800 mg PO HS cholecalciferol (vitamin D3) [Vitamin D3] 25 mcg (1,000 unit) Tablet 25 mcg PO DAILY azelastine 137 mcg (0.1 %) spray,non-aerosol 1 spray INTRANASAL BID Dry Eye Relief 1-0.2-0.2 % Drops 1 drp EACH EYE 4-6XD PRN (Reason: Dry Eyes) acetaminophen 500 mg tablet 1,000 mg PO TID Qty: 90 0RF docusate sodium [Colace] 100 mg capsule 100 mg PO BID Qty: 90 0RF ibuprofen 800 mg tablet 800 mg PO TID Qty: 40 0RF oxycodone 5 mg tablet See Rx Instructions .ROUTE .COMPLEX PRN (Reason: pain) Qty: 24 0RF Rx Instructions: take 1 tablet q4h PRN moderate pain or take 2 tablets q6h PRN severe pain. Do NOT exceed 8 tablets in 24 hours. hydrochlorothiazide 25 mg tablet 25 mg PO DAILY Qty: 90 1RF montelukast 10 mg tablet 10 mg PO QHS Qty: 90 1RF losartan 100 mg tablet 100 mg PO DAILY Qty: 90 1RF Follow-up/Referrals: UNKNOWN,DOCTOR [Primary Care Provider] - Time of Disposition: 14:46
[2024-07-19] MEDS: ceFAZolin 2 GM/D5W 50 ML 2 GM/50 ML BAG IVPB (14:50)
[2024-07-19] MEDS: LACTATED RINGERS 1,000 ML 30 ML IV CONT (15:19)
[2024-07-19] MEDS: ceFAZolin 1 GM/NS 50 ML 1 GM/50 ML BAG IVPB (15:20)
--- NOTE | 2024-07-19 15:20 | WPDANESEPPF ---
Anes - Initial Pre Proc Eval Procedure: Operation Date: 07/19/24 16:00 Proposed Procedures p Diagnostic Laparoscopy, Evacuation Hematoma - Adelaide Horton MD Date/Time: 07/19/24 15:20 Surgeon: Adelaide Horton MD Pre Op Diagnosis: fever post-op Patient Data Age: 54 Gender: F Height: 1.73 m Weight: 142.1 kg Last Vital Signs Temp 36.9 C 07/19/24 15:10 Pulse 101 H 07/19/24 15:10 Resp 18 07/19/24 14:30 BP 145/80 H 07/19/24 15:10 Pulse Ox 95 07/19/24 15:10 O2 Del Method Room Air 07/19/24 11:50 Allergies Allergy/AdvReac Type Severity Reaction Status Date / Time erythromycin base Allergy Mild Gastrointestinal Verified 07/19/24 11:57 Upset Home Medications Medication Instructions Recorded Confirmed Type garlic 1,000 mg capsule 1,000 mg PO DAILY 10/17/19 07/03/24 History turmeric root extract 500 mg 500 mg PO DAILY 10/17/19 07/03/24 History capsule levonorgestrel 21 mcg/24 hr (up to 1 device intrauterine ONCE 12/16/19 07/03/24 History 8 years) 52 mg intrauterine device (Mirena) albuterol 90 mcg/actuation aerosol 90 mcg inhalation Q4H PRN 11/07/22 07/03/24 History inhaler Shortness Of Breath cholecalciferol (vitamin D3) 25 25 mcg PO DAILY 02/10/23 07/03/24 History mcg (1,000 unit) tablet (Vitamin D3) ibuprofen 800 mg tablet 800 mg PO HS 02/10/23 07/03/24 History krill oil 500 mg capsule 1,000 mg PO DAILY 05/01/23 07/03/24 History magnesium 250 mg tablet 250 mg PO DAILY 05/01/23 07/03/24 History [id number]-jodw-nare 8 mg-folic 400 1 tablet PO DAILY 05/01/23 07/03/24 History mcg-K 50 mcg-lutein 300 mcg tablet (Centrum Silver Women) fluticasone propionate 50 1 spray intranasal BID #48 grams 10/30/23 07/03/24 Rx mcg/actuation nasal spray,suspension levocetirizine 5 mg tablet (Xyzal) 5 mg PO DAILY 01/18/24 07/03/24 History hydrochlorothiazide 25 mg tablet 25 mg PO DAILY #90 tabs 05/10/24 07/03/24 Rx montelukast 10 mg tablet 10 mg PO QHS #90 tabs 06/06/24 07/03/24 Rx azelastine 137 mcg (0.1 %) nasal 1 spray intranasal BID 07/03/24 07/03/24 History spray peg [id number] 1 1 drp EACH EYE 4-6XD PRN Dry Eyes 07/03/24 07/03/24 History %-0.2 %-0.2 % eye drops (Dry Eye Relief) acetaminophen 500 mg tablet 1,000 mg PO TID #90 tabs 07/15/24 Rx docusate sodium 100 mg capsule 100 mg PO BID #90 caps 07/15/24 Rx (Colace) ibuprofen 800 mg tablet 800 mg PO TID #40 tabs 07/15/24 Rx oxycodone 5 mg tablet See Rx Instructions .Route 07/15/24 Rx .COMPLEX PRN pain #24 tabs losartan 100 mg tablet 100 mg PO DAILY #90 tabs 07/16/24 Rx Laboratory Tests 07/19/24 07/19/24 07/19/24 12:13 12:14 12:52 WBC 8.9 K/mm3 (4.5-10.0) RBC 4.00 L M/mm3 (4.2-5.4) Hgb 10.9 L g/dL (12.0-15.0) Hct 32.9 L % (37.0-47.0) MCV 82.3 fl (80-100) MCH 27.3 pg (26-34) MCHC 33.1 g/dl (32-36) RDW 14.3 % (11.5-14.5) Plt Count 350 k/mm3 (150-375) MPV 9.6 fl (7.4-10.4) Immature Gran % (Auto) 0.3 % (0-0.5) Neut % (Auto) 78.2 H % (45.5-73.1) Lymph % (Auto) 11.3 L % (18.3-44.2) [place] % (Auto) 8.7 H % (2.6-8.5) Eos % (Auto) 1.2 % (0-4.4) Baso % (Auto) 0.3 % (0.2-1.2) Lymph # (Auto) 1.00 K/mm3 (0.9-3.2) [place] # (Auto) 0.8 H K/mm3 (0.1-0.6) Eos # (Auto) 0.1 K/mm3 (0-0.3) Baso # (Auto) 0.0 K/mm3 (0.0-0.1) Abs Immat Gran (auto) 0.03 K/mm3 (0.00-0.031) Absolute Neuts (auto) 6.9 H K/mm3 (1.3-6.7) Absolute Nucleated RBC 0.000 K/mm3 (0.0-0.012) Nucleated RBC % 0.0 % (0.0-0.2) PT 13.8 Seconds (11.1-14.7) INR 1.0 APTT 41.7 H Seconds (22.3-36.8) Sodium 134 L mmol/L (137-145) Potassium 3.8 mmol/L (3.4-5.0) Chloride 101 mmol/L (98-107) Carbon Dioxide 28 mmol/L (22-30) Anion Gap 5 mmol/L (4-12) BUN 9 mg/dL (7-17) Creatinine 0.60 L mg/dL (0.7-1.0) Estim Creat Clear Calc 140 ml/min Estimated GFR > 60 (59 - ) Glucose 101 mg/dL (65-110) Lactic Acid 1.1 mmol/L (0.7-2.0) Calcium 9.4 mg/dL (8.4-10.2) Total Bilirubin 0.7 mg/dL (0.2-1.3) AST 19 U/L (14-36) ALT 17 U/L (6-35) Alkaline Phosphatase 60 U/L (38-126) Troponin I < 0.012 ng/mL (0.000-0.034) Total Protein 8.0 g/dL (6.3-8.2) Albumin 4.1 g/dL (3.5-5.1) Procalcitonin 0.1 ng/mL Urine Color Yellow (Yellow) Urine Appearance Clear (Clear) Urine pH 7.0 (5.0-9.0) Ur Specific [place] 1.011 (1.001-1.035) Urine Protein Negative mg/dL (Negative) Urine Glucose (UA) Negative mg/dL (Negative) Urine Ketones Negative mg/dL (Negative) Ur Blood (Man) 1+ H (Negative) Urine Nitrate Negative (Negative) Urine Bilirubin Negative (Negative) Urine Urobilinogen 0.2 mg/dL (<2.0) Leukocyte Esterase Rfl Trace H MAYDA/UL (Negative) Urine RBC 6-10 H /hpf (0-2) Urine WBC 0-5 /hpf (0-3) Ur Squamous Epith Cells None seen /hpf (Few) Urine Bacteria None seen /hpf Urine Casts 0-2 Influenza A (RT-PCR) Negative (Negative) Influenza B (RT-PCR) Negative (Negative) RSV (RT-PCR) Negative (Negative) SARS-CoV-2 RNA (RT-PCR) Negative (Negative) Patient hx anesthesia problems: none Family hx anesthesia problems: none Results Review: All pre-operative results and documents have been reviewed as part of the pre-operative evaluation. [facility] Past Medical History Medical History Allergic rhinitis, unspecified Amenorrhea, unspecified Asthma Asthma Asymptomatic premature menopause Body mass index [BMI] 36.0-36.9, adult Colon cancer screening Encounter for insertion of mirena IUD 2018 Essential (primary) hypertension GERD (gastroesophageal reflux disease) Hypertension Insomnia, unspecified Mild intermittent asthma Morbid obesity Obesity due to excess calories Obstructive sleep apnea (adult) (pediatric) Sinusitis Vaginal delivery Vitamin D deficiency, unspecified Surgical History Surgical History History of ankle surgery History of dilation and curettage History of dilation and curettage History of endometrial ablation History of endometrial ablation Family History Family History Father Hypertension Lung cancer Heart disease Sibling Hypertension Mother Heart disease Fatty liver Mother Family history of hypercholesterolemia Father Hypertension, Onset Age: 25 Other Family history of arthritis Family history of lung cancer Family history of thyroid disease Social History Social History Smoking status: Never smoker Second hand tobacco smoke exposure: No Alcohol intake: current Alcohol use details: socially Substance use: never Substance use type: does not use Do You Feel Safe in your Home?: Yes Lack of Transportation: No Lack of Food: Never True Current Housing: I Have Housing Concerned About Future Housing: No Difficulty Paying Gas/Electric Bills: No Difficulty Paying for Meds: No Currently Unemployed: No Difficulty w/ Childcare or Family Care: No Living arrangements: with family Occupation/Education: occupation 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 Gender identity (if verbalized by the patient): Female Sexual Orientation (if Verbalized by the Patient): Straight or Heterosexual Spiritual care concerns: No Anes - Eval Final PreProcedure Day of Procedure 07/19/24 15:20 Patient weight: morbidly obese Heart: regular rate and rhythm Lungs: clear to auscultation Airway: Mallampati scale class II Neurological: alert and oriented Last oral intake: >/= 8 hours ASA classification: III Emergent: no Anesthetic plan: proceed Anesthesia type and monitoring: general ETT and standard monitoring Results Review: All pre-operative results and documents have been reviewed as part of the pre-operative evaluation. Informed Consent: The patient's anesthetic plan and its attendant risks and benefits were discussed with the patient/family/POA. Questions were solicited and answers provided to the satisfaction of the patient/family/POA.
--- NOTE | 2024-07-19 15:23 | WPDHPUPDATE1 ---
History and Physical Update Update Date/Time: 07/19/24 15:23 History and Physical has been reviewed, including an updated exam of the patient. There are NO changes in the patient's condition. Risks, benefits, and alternatives have been discussed and questions answered. Patient agrees to proceed with diagnostic laparoscopy with evacuation of pelvic hematoma.
[2024-07-19] MEDS: BUPIVACAINE/EPINEPHRINE 0.5% 50 ML VIAL 14 ML INFILTRATE (16:44)
--- NOTE | 2024-07-19 16:55 | P.OP_ITS ---
Procedure Note - Detailed Date of Procedure 07/19/24 Pre-op Diagnosis pelvic hematoma fever s/p robotic laparoscopic hysterectomy Post-op Diagnosis Same Procedure Performed Diagnostic laparoscopy with evacuation of pelvic hematoma Surgeon Adelaide Horton MD [employer] Anesthesia General and Local (14cc of 0.5% marcaine w/ epi) Findings Hemoperitoneum noted on entry; large amount of clotted blood in the pelvis. The colon was adheared to the cuff/left pelvic side wall and was slowly and carefully taken down using gentle traction and irrigation. The cuff and pedicles were visualized. Large clot noted on cuff; no active bleeding. Normal bilateral ovaries. 1200cc of fluid used to irrigate the pelvis. 480cc of clot/blood evacuated from pelvis. Good hemostasis at end of case. Description of Procedure Renee was taken to the operating room where she was placed under general endotracheal anesthesia without complications. She was then prepped and draped in the usual sterile fashion in the dorsal lithotomy position with her legs in low Adair stirrups and her arms tucked at her side with a strap over her chest. A time-out was performed and she received 3g IV Ancef and 500mg IV Flagyl. A Browning catheter was placed within her bladder. An oral gastric tube was verified in place. Her prior Palmers point incision was incised, and a 5 mm trocar was placed under direct visualization without complications. Once intra-abdominal placement was confirmed the abdomen was insufflated with carbon dioxide gas. She was then placed in Trendelenburg and an additional 5 mm ports was placed in the prior left lower quadrant incision under direct visualization without complications. The above findings were noted. Using the suction tip, the hematoma was slowly removed. The bowel was slowly and carefully moved to find all parts of the large pelvic hematoma. The pelvis was irrigated and the bowel adhesions were slowly and carefully released. The cuff and adnexa were examine. No active bleeding was noted. The pelvis was irrigated with approximately 1,200cc of fluid. The patient was placed in reverse Trendelenburg and airplaned to the left and right sides trying to get all of the irrigation fluid out. Good hemostasis was noted. All instruments were removed from the abdomen. The insufflation was released and the trocars were removed. The 2 laparoscopic incision sites were reapproximated using 4-0 Monocryl and covered with Dermabond. The incisions were then infiltrated using 0.5% Marcaine with epinephrine. The browning catheter was removed. Sponge, lap, instrument, and needle counts were correct at the end of the procedure. Patient was awoken from general anesthesia and taken to recovery with plans of admission for IV antibiotics. Estimated Blood Loss 480 ((hemoperitoneum/clot removed)) IV Fluids 600 Urine Output 400 Pathology None sent Complications No immediate complications Condition Stable Disposition Floor [facility] Billing Surgery - Charge Forward: Surgery Billing
[2024-07-19] MEDS: HYDROmorphone HCL INJ (*CRX) 1 MG/ML SYR 0.25 MG IV PUSH ×3 (17:54→18:08)
[2024-07-19] MEDS: KETOROLAC 30 MG/ML VIAL (*BKC) IV PUSH ×2 (18:36→23:13)
[2024-07-19] MEDS: DOCUSATE SODIUM 100 MG CAPSULE PO (18:36)
[2024-07-19] MEDS: SIMETHICONE 80 MG TAB.CHEW PO (18:56)
[2024-07-19] MEDS: cefTRIAXone 2 GM/NS 100 ML 2 GM/100 ML BAG IVPB (20:59)
[2024-07-19] MEDS: metroNIDAZOLE 500 MG/ISO 100ML 500 MG/100 ML BAG 100 MG IVPB (21:42)
[2024-07-20 00:34] VITALS: BP 127/69; PULSE 75; RESP 18; TEMP 36.8; O2SAT 95
[2024-07-20 03:48] VITALS: BP 116/62; PULSE 68; RESP 20; TEMP 36.2; O2SAT 97
[2024-07-20] MEDS: KETOROLAC 30 MG/ML VIAL (*BKC) IV PUSH (05:10)
[2024-07-20] MEDS: ACETAMINOPHEN 500 MG TABLET 1000 MG PO ×4 (05:10→23:28)
[2024-07-20] MEDS: metroNIDAZOLE 500 MG/ISO 100ML 500 MG/100 ML BAG 100 MG IVPB ×3 (05:11→21:53)
[2024-07-20 05:57] LABS: Basophils Percent Auto 0.1 % (0.2-1.2); Eosinophils Percent Auto 0.1 % (0-4.4); Hematocrit 28.3 % (37.0-47.0); Hemoglobin 9.1 g/dL (12.0-15.0); Immature Granulocyte Absolute 0.04 K/mm3 (0.00-0.031); Immature Granulocyte Percent A 0.4 % (0-0.5); Lymphocytes Absolute Auto 1.04 K/mm3 (0.9-3.2); Mean Corpuscular HGB Conc 32.2 g/dl (32-36); Mean Corpuscular Hemoglobin 26.8 pg (26-34); Mean Corpuscular Volume 83.5 fl (80-100); Mean Platelet Volume 9.7 fl (7.4-10.4); Monocytes Percent Auto 9.2 % (2.6-8.5); Neutrophils Absolute Auto 8.3 K/mm3 (1.3-6.7); Neutrophils Percent Auto 80.2 % (45.5-73.1); Platelet Count Result 332 k/mm3 (150-375); Red Blood Count 3.39 M/mm3 (4.2-5.4); Red Cell Distribution Width 14.6 % (11.5-14.5); White Blood Count 10.4 K/mm3 (4.5-10.0)
[2024-07-20 06:06] LABS: Anion Gap 8 mmol/L (4-12); Blood Urea Nitrogen 12 mg/dL (7-17); Calcium 8.7 mg/dL (8.4-10.2); Carbon Dioxide 26 mmol/L (22-30); Chloride 100 mmol/L (98-107); Estimated CRCL calculation 140 ml/min; Estimated Glomerular Filt Rate > 60; Glucose 120 mg/dL (65-110); Potassium 3.7 mmol/L (3.4-5.0); Sodium 134 mmol/L (137-145)
[2024-07-20 07:59] VITALS: BP 118/64; PULSE 70; RESP 19; TEMP 36.4; O2SAT 96
--- NOTE | 2024-07-20 08:57 | PM.GYNPNOP ---
GRADUATE ASSISTANT - A/P Assessment and plan (1) Pelvic hematoma: Status: Acute (2) Postoperative fever: Code(s): R50.82 - Postprocedural fever Status: Acute Plan - CT scan with large pelvic hematoma post hysterectomy on 07/15/24; now s/p diagnostic LSC with evacuation of hematoma; ~480cc removed - Continue ceftriaxone 2g IV q24h + metronidazole 500mg IV q8h - Scheduled tylenol + toradol/ibuprofen - Oxycodone PRN - Bowel regimen: colace 100mg BID + miralax daily; zofran PRN - Regular diet; hydration encouraged - Ambulation/SCD's encouraged; will hold off on lovenox - Labs daily; blood/urine cultures pending - Will keep for admission after surgery for 48-72 hours of IV antibiotics Postoperative Procedures: Procedures Operation Date: 07/19/24 16:00 Actual Procedure Side Surgeon p Diagnostic Laparoscopy, Evacuation Hematoma Not Applicable Adelaide Horton MD Postoperative day: 1 Postoperative status: doing well Postoperative plan: routine post-op care Time Spent With Patient Time: Total time spent is greater than 50% in coordination of care (as documented) at patient's floor/unit and/or counseling patient: Time with patient: less than 15 minutes GRADUATE ASSISTANT- PN:Subj Post-Op Subjective Date/time seen: 07/20/24 08:57 Interval history: POD#1 Renee reports doing better today. No issues overnight. Her pain is much better controlled. She has tolerated regular diet. She denies any vaginal bleeding. She has voided. She has passed flatus. She has ambulated and denies any symptoms of anemia. She denies fever. Review of Systems Review of Systems: All systems reviewed & are unremarkable except as noted in HPI and below (HPI) Constitutional: Constitutional: Denies chills, Denies fever(s) and Denies headache(s) Eyes: Eyes: Denies change in vision ENT: Denies dizziness and Denies headache(s) Cardiovascular: Cardiovascular: Denies chest pain and Denies rapid heart rate Respiratory: Respiratory: Reports cough Genitourinary: Genitourinary: Denies abnormal vaginal bleeding Neurologic: Denies dizziness and Denies headache(s) Exam Const: General: cooperative, comfortable and no acute distress Nutritional Appearance: obese morbidly obese Orientation/consciousness: patient oriented x3 Resp: Effort & Inspection: normal respiratory effort Auscultation: clear to auscultation bilaterally Cardio: Rate: regular rate GI: Inspection: normal to inspection and incision ( LSC incisions c/d/i) GI Palp: Yes abdominal tenderness (appropriate) and Yes Soft to palpation Auscultation: normal bowel sounds Skin: General skin exam: normal color Neuro: General: patient oriented x3 Psych: Appearance: grossly normal Affect: normal affect Attitude: cooperative GRADUATE ASSISTANT - PN: Obj Data Vital Signs Vital Signs: Vital Signs - 24 hr 07/19/24 11:50 07/19/24 13:29 07/19/24 11:30 Temperature 100.9 F H Pulse Rate 93 91 88 Respiratory Rate 16 16 16 Blood Pressure 171/94 H 150/79 H 163/79 H Pulse Oximetry 97 99 96 Oxygen Delivery Room Air Oxygen Flow Rate 07/19/24 12:00 07/19/24 13:30 07/19/24 13:45 Temperature 102.2 F H Pulse Rate 91 90 84 Respiratory Rate 16 16 14 Blood Pressure 154/72 H 160/75 H 147/75 H Pulse Oximetry 97 99 96 Oxygen Delivery Oxygen Flow Rate 07/19/24 14:00 07/19/24 14:30 07/19/24 14:40 Temperature 101.3 F H 101.3 F H Pulse Rate 88 94 Respiratory Rate 16 18 Blood Pressure 157/74 H 144/77 H Pulse Oximetry 98 97 Oxygen Delivery Oxygen Flow Rate 07/19/24 15:10 07/19/24 17:02 07/19/24 17:17 Temperature 98.4 F 98.8 F Pulse Rate 101 H 91 98 Respiratory Rate 15 15 Blood Pressure 145/80 H 115/61 124/73 Pulse Oximetry 95 96 94 Oxygen Delivery Simple Face Mask Room Air Oxygen Flow Rate 10 07/19/24 17:32 07/19/24 17:47 07/19/24 18:02 Temperature Pulse Rate 85 83 79 Respiratory Rate 14 13 16 Blood Pressure 124/73 123/73 121/77 Pulse Oximetry 97 98 100 Oxygen Delivery Room Air Room Air Room Air Oxygen Flow Rate 07/19/24 18:14 07/19/24 18:29 07/19/24 18:59 Temperature 99 F 99.7 F H 99 F Pulse Rate 77 78 75 Respiratory Rate 16 16 16 Blood Pressure 117/59 L 122/63 120/61 Pulse Oximetry 98 96 94 Oxygen Delivery Oxygen Flow Rate 07/19/24 18:40 07/19/24 17:48 07/20/24 00:34 Temperature 98.9 F 98.3 F Pulse Rate 78 75 Respiratory Rate 16 18 Blood Pressure 135/70 127/69 Pulse Oximetry 94 96 95 Oxygen Delivery Nasal Cannula Oxygen Flow Rate 2 07/20/24 03:48 Temperature 97.2 F L Pulse Rate 68 Respiratory Rate 20 Blood Pressure 116/62 Pulse Oximetry 97 Oxygen Delivery Oxygen Flow Rate Intake/Output Intake/Output: Intake & Output 07/17/24 07/18/24 07/19/24 07/20/24 23:59 23:59 23:59 23:59 Intake Total 2250 650 Output Total 400 Balance 1850 650 Meds/Results Medications: Active Medications Generic Name Dose Route Start Last Admin Trade Name Freq PRN Reason Stop Dose Admin Acetaminophen 1,000 mg 07/19/24 18:14 07/20/24 05:10 Acetaminophen 500 Mg Tablet PO 1,000 mg Q6HR LLUVIA Administration Docusate Sodium 100 mg 07/19/24 18:14 07/19/24 18:36 Docusate Sodium 100 Mg Capsule PO 100 mg BID LLUVIA Administration Ceftriaxone Sodium 2 gm in 100 mls @ 200 mls/hr 07/19/24 20:00 07/19/24 21:29 Rocephin 2 Gm/Ns 100 Ml IVPB Infused Q24H LLUVIA Infusion Metronidazole 500 mg in 100 mls @ 100 mls/hr 07/19/24 21:00 07/20/24 06:11 Flagyl 500 Mg/Iso Soln 100 Ml IVPB Infused Q8H LLUVIA Infusion Ibuprofen 600 mg 07/20/24 12:00 Ibuprofen 600 Mg Tablet PO Q6HR LLUVIA Naloxone HCl 0.1 mg 07/19/24 18:14 Naloxone Hcl 0.4 Mg/Ml Vial IV PUSH Q2M PRN Respiratory rate less than 10 Ondansetron HCl 4 mg 07/19/24 18:14 Ondansetron Inj 4 Mg/2 Ml Vial IV PUSH Q6H PRN Nausea And Vomiting Oxycodone HCl 5 mg 07/19/24 18:14 Oxycodone Hcl (*Crx) 5 Mg Tab Ir PO Q4H PRN Pain Rated 4-6 Oxycodone HCl 10 mg 07/19/24 18:14 Oxycodone Hcl (*Crx) 5 Mg Tab Ir PO Q6H PRN Pain Rated 7-10 Simethicone 80 mg 07/19/24 18:14 07/19/24 18:56 Simethicone 80 Mg Tab.Chew PO 80 mg TIDWM LLUVIA Administration Simethicone 125 mg 07/19/24 18:14 Simethicone 125 Mg Chew Tab PO QID PRN gas Radiology Results: ITS Impressions Chest X-Ray 07/19/24 13:28 Impression: Normal chest. Chest/Abdomen/Pelvis CTA 07/19/24 13:42 IMPRESSION: 1. Hematoma in the hysterectomy bed measuring 8.0 x 7.1 x 10.1 cm. 2. Small volume of ascites. 3. 2.8 cm left adrenal mass. In the absence of known malignancy, this finding is likely an adenoma. 4. No pulmonary embolus. Labs 07/20/24 05:00 07/20/24 05:00 Labs: Laboratory Results - last 24 hr 07/19/24 07/19/24 07/19/24 12:13 12:14 12:52 WBC 8.9 RBC 4.00 L Hgb 10.9 L Hct 32.9 L MCV 82.3 MCH 27.3 MCHC 33.1 RDW 14.3 Plt Count 350 MPV 9.6 Immature Gran % (Auto) 0.3 Neut % (Auto) 78.2 H Lymph % (Auto) 11.3 L [place] % (Auto) 8.7 H Eos % (Auto) 1.2 Baso % (Auto) 0.3 Lymph # (Auto) 1.00 [place] # (Auto) 0.8 H Eos # (Auto) 0.1 Baso # (Auto) 0.0 Abs Immat Gran (auto) 0.03 Absolute Neuts (auto) 6.9 H Absolute Nucleated RBC 0.000 Nucleated RBC % 0.0 PT 13.8 INR 1.0 APTT 41.7 H Sodium 134 L Potassium 3.8 Chloride 101 Carbon Dioxide 28 Anion Gap 5 BUN 9 Creatinine 0.60 L Estim Creat Clear Calc 140 Estimated GFR > 60 Glucose 101 Lactic Acid 1.1 Calcium 9.4 Total Bilirubin 0.7 AST 19 ALT 17 Alkaline Phosphatase 60 Troponin I < 0.012 Total Protein 8.0 Albumin 4.1 Procalcitonin 0.1 Urine Color Yellow Urine Appearance Clear Urine pH 7.0 Ur Specific [place] 1.011 Urine Protein Negative Urine Glucose (UA) Negative Urine Ketones Negative Ur Blood (Man) 1+ H Urine Nitrate Negative Urine Bilirubin Negative Urine Urobilinogen 0.2 Leukocyte Esterase Rfl Trace H Urine RBC 6-10 H Urine WBC 0-5 Ur Squamous Epith Cells None seen Urine Bacteria None seen Urine Casts 0-2 Influenza A (RT-PCR) Negative Influenza B (RT-PCR) Negative RSV (RT-PCR) Negative SARS-CoV-2 RNA (RT-PCR) Negative 07/20/24 05:00 WBC 10.4 H RBC 3.39 L Hgb 9.1 L Hct 28.3 L MCV 83.5 MCH 26.8 MCHC 32.2 RDW 14.6 H Plt Count 332 MPV 9.7 Immature Gran % (Auto) 0.4 Neut % (Auto) 80.2 H Lymph % (Auto) 10.0 L [place] % (Auto) 9.2 H Eos % (Auto) 0.1 Baso % (Auto) 0.1 L Lymph # (Auto) 1.04 [place] # (Auto) 1.0 H Eos # (Auto) 0.0 Baso # (Auto) 0.0 Abs Immat Gran (auto) 0.04 H Absolute Neuts (auto) 8.3 H Absolute Nucleated RBC 0.000 Nucleated RBC % 0.0 PT INR APTT Sodium 134 L Potassium 3.7 Chloride 100 Carbon Dioxide 26 Anion Gap 8 BUN 12 Creatinine 0.60 L Estim Creat Clear Calc 140 Estimated GFR > 60 Glucose 120 H Lactic Acid Calcium 8.7 Total Bilirubin AST ALT Alkaline Phosphatase Troponin I Total Protein Albumin Procalcitonin Urine Color Urine Appearance Urine pH Ur Specific [place] Urine Protein Urine Glucose (UA) Urine Ketones Ur Blood (Man) Urine Nitrate Urine Bilirubin Urine Urobilinogen Leukocyte Esterase Rfl Urine RBC Urine WBC Ur Squamous Epith Cells Urine Bacteria Urine Casts Influenza A (RT-PCR) Influenza B (RT-PCR) RSV (RT-PCR) SARS-CoV-2 RNA (RT-PCR)
[2024-07-20] MEDS: DOCUSATE SODIUM 100 MG CAPSULE PO ×2 (09:34→17:12)
[2024-07-20] MEDS: SIMETHICONE 80 MG TAB.CHEW PO ×3 (09:35→17:12)
[2024-07-20] MEDS: oxyCODONE HCL (*CRX) 5 MG TAB IR PO ×2 (09:39→17:11)
[2024-07-20 11:59] VITALS: BP 120/78; PULSE 76; RESP 17; TEMP 36.4; O2SAT 96
[2024-07-20] MEDS: IBUPROFEN 600 MG TABLET PO ×3 (12:27→23:28)
[2024-07-20 15:59] VITALS: BP 124/72; PULSE 62; RESP 19; TEMP 36.6; O2SAT 96
[2024-07-20 20:16] VITALS: BP 134/64; PULSE 74; RESP 16; TEMP 36.5; O2SAT 96
[2024-07-20] MEDS: cefTRIAXone 2 GM/NS 100 ML 2 GM/100 ML BAG IVPB (20:53)
[2024-07-20] MEDS: ONDANSETRON INJ 4 MG/2 ML VIAL IV PUSH (21:02)
[2024-07-20] MEDS: LORATADINE 10 MG TABLET PO (23:28)
[2024-07-20] MEDS: MELATONIN 5 MG TABLET PO (23:28)
[2024-07-21] MEDS: oxyCODONE HCL (*CRX) 5 MG TAB IR PO ×2 (02:43→09:04)
[2024-07-21] MEDS: SIMETHICONE 125 MG CHEW TAB PO (02:50)
[2024-07-21 04:49] VITALS: BP 115/61; PULSE 71; RESP 16; TEMP 36.5; O2SAT 97
[2024-07-21] MEDS: ACETAMINOPHEN 500 MG TABLET 1000 MG PO ×3 (05:44→17:42)
[2024-07-21] MEDS: metroNIDAZOLE 500 MG/ISO 100ML 500 MG/100 ML BAG 100 MG IVPB ×3 (05:44→21:28)
[2024-07-21] MEDS: IBUPROFEN 600 MG TABLET PO ×3 (05:44→17:42)
[2024-07-21 05:52] LABS: Basophils Percent Auto 0.4 % (0.2-1.2); Eosinophils Absolute Auto 0.4 K/mm3 (0-0.3); Eosinophils Percent Auto 4.8 % (0-4.4); Hematocrit 27.3 % (37.0-47.0); Hemoglobin 8.7 g/dL (12.0-15.0); Immature Granulocyte Absolute 0.04 K/mm3 (0.00-0.031); Immature Granulocyte Percent A 0.5 % (0-0.5); Lymphocytes Absolute Auto 1.34 K/mm3 (0.9-3.2); Mean Corpuscular HGB Conc 31.9 g/dl (32-36); Mean Corpuscular Hemoglobin 27.1 pg (26-34); Mean Platelet Volume 9.4 fl (7.4-10.4); Monocytes Percent Auto 12.1 % (2.6-8.5); Neutrophils Absolute Auto 5.1 K/mm3 (1.3-6.7); Neutrophils Percent Auto 65.2 % (45.5-73.1); Platelet Count Result 289 k/mm3 (150-375); Red Blood Count 3.21 M/mm3 (4.2-5.4); Red Cell Distribution Width 14.6 % (11.5-14.5); White Blood Count 7.9 K/mm3 (4.5-10.0)
[2024-07-21 06:10] LABS: Alanine Aminotransferase 11 U/L (6-35); Albumin Level 3.4 g/dL (3.5-5.1); Alkaline Phosphatase 50 U/L (38-126); Anion Gap 4 mmol/L (4-12); Aspartate Amino Transferase 14 U/L (14-36); Bilirubin,Total 0.3 mg/dL (0.2-1.3); Blood Urea Nitrogen 12 mg/dL (7-17); Calcium 8.2 mg/dL (8.4-10.2); Carbon Dioxide 30 mmol/L (22-30); Chloride 102 mmol/L (98-107); Estimated CRCL calculation 140 ml/min; Estimated Glomerular Filt Rate > 60; Glucose 104 mg/dL (65-110); Potassium 3.5 mmol/L (3.4-5.0); Sodium 136 mmol/L (137-145)
[2024-07-21] MEDS: SIMETHICONE 80 MG TAB.CHEW PO ×3 (08:59→17:42)
[2024-07-21] MEDS: DOCUSATE SODIUM 100 MG CAPSULE PO ×2 (08:59→17:42)
[2024-07-21] MEDS: LIDOCAINE 5% PATCH 1 PATCH TRANSDERM (08:59)
[2024-07-21] MEDS: polyethylene glycoL 3350 17 GM POWD.PACK PO (08:59)
--- NOTE | 2024-07-21 09:16 | PM.GYNPNOP ---
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 - A/P Assessment and plan (1) Pelvic hematoma: Status: Acute (2) Postoperative fever: Code(s): R50.82 - Postprocedural fever Status: Acute Plan - CT scan with large pelvic hematoma post hysterectomy on 07/15/24; now s/p diagnostic LSC with evacuation of hematoma; ~480cc removed - Continue ceftriaxone 2g IV q24h + metronidazole 500mg IV q8h - Scheduled tylenol + ibuprofen; Oxycodone PRN - Bowel regimen: colace 100mg BID + miralax daily; zofran PRN - Regular diet; hydration encouraged + chewing gum - Ambulation/SCD's encouraged; will hold off on lovenox - Labs daily; blood cultures (prelim neg); urine cx: pending - Will keep for total of 48-72 hours of IV antibiotics; plan for d/c tomorrow AM on PO antibiotics (Augmentin 875/125 q12h to complete 14 days) pending better bowel function; if not improved, plan for KUB tomorrow AM Postoperative Procedures: Procedures Operation Date: 07/19/24 16:00 Actual Procedure Side Surgeon p Diagnostic Laparoscopy, Evacuation Hematoma Not Applicable Adelaide Horton MD Postoperative day: 2 Time Spent With Patient Time: Total time spent is greater than 50% in coordination of care (as documented) at patient's floor/unit and/or counseling patient: Time with patient: less than 15 minutes 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- PN:Subj Post-Op Subjective Date/time seen: 07/21/24 09:16 Interval history: POD#2 Renee reports doing better today. No issues overnight. Her pain is controlled on PO pain meds, noticing a bruised feeling in her LUQ above incision; lidocaine patch helping though. She has tolerated regular diet, but has decreased appetite. She noticed the smallest amount of pink spotting yesterday on her pad. She has voided. She has passed flatus, no BM since 07/19/24 AM. She has ambulated and denies any symptoms of anemia. She denies fever. + cough Review of Systems Review of Systems: All systems reviewed & are unremarkable except as noted in HPI and below (HPI) Constitutional: Constitutional: Denies chills, Denies fever(s) and Denies headache(s) Eyes: Eyes: Denies change in vision ENT: Denies dizziness and Denies headache(s) Cardiovascular: Cardiovascular: Denies chest pain and Denies rapid heart rate Respiratory: Respiratory: Reports cough Gastrointestinal: Gastrointestinal: Reports belching, Reports bloating, Reports early satiety and Denies nausea Genitourinary: Genitourinary: Denies abnormal vaginal bleeding Neurologic: Denies dizziness and Denies headache(s) Exam Const: General: cooperative, comfortable and no acute distress Nutritional Appearance: obese morbidly obese Orientation/consciousness: patient oriented x3 Resp: Effort & Inspection: normal respiratory effort Auscultation: clear to auscultation bilaterally Cardio: Rate: regular rate GI: Inspection: normal to inspection and incision ( LSC incisions c/d/i, lidocaine patch LUQ(nothing noted)) GI Palp: Yes abdominal tenderness (appropriate) and Yes Soft to palpation Auscultation: Hypoactive bowel sounds present Skin: General skin exam: normal color Neuro: General: patient oriented x3 Psych: Appearance: grossly normal Affect: normal affect Attitude: cooperative 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 - PN: Obj Data Vital Signs Vital Signs: Vital Signs - 24 hr 07/20/24 09:33 07/20/24 11:59 07/20/24 15:59 Temperature 97.6 F 97.8 F Pulse Rate 76 62 Respiratory Rate 17 19 Blood Pressure 120/78 124/72 Pulse Oximetry 96 96 Oxygen Delivery Room Air 07/20/24 20:16 07/20/24 20:53 07/21/24 04:49 Temperature 97.7 F 97.7 F Pulse Rate 74 71 Respiratory Rate 16 16 Blood Pressure 134/64 115/61 Pulse Oximetry 96 97 Oxygen Delivery Room Air Intake/Output Intake/Output: Intake & Output 07/18/24 07/19/24 07/20/24 07/21/24 23:59 23:59 23:59 23:59 Intake Total 2250 1652 1050 Output Total 400 Balance 1850 1652 1050 Meds/Results Medications: Active Medications Generic Name Dose Route Start Last Admin Trade Name Freq PRN Reason Stop Dose Admin Acetaminophen 1,000 mg 07/19/24 18:14 07/21/24 05:44 Acetaminophen 500 Mg Tablet PO 1,000 mg Q6HR LLUVIA Administration Docusate Sodium 100 mg 07/19/24 18:14 07/21/24 08:59 Docusate Sodium 100 Mg Capsule PO 100 mg BID LLUVIA Administration Ceftriaxone Sodium 2 gm in 100 mls @ 200 mls/hr 07/19/24 20:00 07/20/24 21:23 Rocephin 2 Gm/Ns 100 Ml IVPB Infused Q24H LLUVIA Infusion Metronidazole 500 mg in 100 mls @ 100 mls/hr 07/19/24 21:00 07/21/24 06:44 Flagyl 500 Mg/Iso Soln 100 Ml IVPB Infused Q8H LLUVIA Infusion Ibuprofen 600 mg 07/20/24 12:00 07/21/24 05:44 Ibuprofen 600 Mg Tablet PO 600 mg Q6HR LLUVIA Administration Lidocaine 1 patch 07/21/24 09:00 07/21/24 08:59 Lidocaine 5% Patch TRANSDERM 1 patch DAILY LLUVIA Administration Loratadine 10 mg 07/20/24 21:00 07/20/24 23:28 Loratadine 10 Mg Tablet PO 10 mg QHS LLUVIA Administration Melatonin 5 mg 07/20/24 21:00 07/20/24 23:28 Melatonin 5 Mg Tablet PO 5 mg HS LLUVIA Administration Naloxone HCl 0.1 mg 07/19/24 18:14 Naloxone Hcl 0.4 Mg/Ml Vial IV PUSH Q2M PRN Respiratory rate less than 10 Ondansetron HCl 4 mg 07/19/24 18:14 07/20/24 21:02 Ondansetron Inj 4 Mg/2 Ml Vial IV PUSH 4 mg Q6H PRN Administration Nausea And Vomiting Oxycodone HCl 5 mg 07/19/24 18:14 07/21/24 09:04 Oxycodone Hcl (*Crx) 5 Mg Tab Ir PO 5 mg Q4H PRN Administration Pain Rated 4-6 Oxycodone HCl 10 mg 07/19/24 18:14 Oxycodone Hcl (*Crx) 5 Mg Tab Ir PO Q6H PRN Pain Rated 7-10 Polyethylene Glycol 17 gm 07/21/24 09:00 07/21/24 08:59 Polyethylene Glycol 3350 17 Gm Powd.Pack PO 17 gm QAM LLUVIA Administration Simethicone 80 mg 07/19/24 18:14 07/21/24 08:59 Simethicone 80 Mg Tab.Chew PO 80 mg TIDWM LLUVIA Administration Simethicone 125 mg 07/19/24 18:14 07/21/24 02:50 Simethicone 125 Mg Chew Tab PO 125 mg QID PRN Administration gas Radiology Results: ITS Impressions Chest X-Ray 07/19/24 13:28 Impression: Normal chest. Chest/Abdomen/Pelvis CTA 07/19/24 13:42 IMPRESSION: 1. Hematoma in the hysterectomy bed measuring 8.0 x 7.1 x 10.1 cm. 2. Small volume of ascites. 3. 2.8 cm left adrenal mass. In the absence of known malignancy, this finding is likely an adenoma. 4. No pulmonary embolus. Labs 07/21/24 05:21 07/21/24 05:21 Labs: Laboratory Results - last 24 hr 07/21/24 05:21 WBC 7.9 RBC 3.21 L Hgb 8.7 L Hct 27.3 L MCV 85.0 MCH 27.1 MCHC 31.9 L RDW 14.6 H Plt Count 289 MPV 9.4 Immature Gran % (Auto) 0.5 Neut % (Auto) 65.2 Lymph % (Auto) 17.0 L Charlton % (Auto) 12.1 H Eos % (Auto) 4.8 H Baso % (Auto) 0.4 Lymph # (Auto) 1.34 Charlton # (Auto) 1.0 H Eos # (Auto) 0.4 H Baso # (Auto) 0.0 Abs Immat Gran (auto) 0.04 H Absolute Neuts (auto) 5.1 Absolute Nucleated RBC 0.000 Nucleated RBC % 0.0 Sodium 136 L Potassium 3.5 Chloride 102 Carbon Dioxide 30 Anion Gap 4 BUN 12 Creatinine 0.60 L Estim Creat Clear Calc 140 Estimated GFR > 60 Glucose 104 Calcium 8.2 L Total Bilirubin 0.3 AST 14 ALT 11 Alkaline Phosphatase 50 Total Protein 6.0 L Albumin 3.4 L
[2024-07-21 15:10] VITALS: BP 135/65; PULSE 70; RESP 17; TEMP 36.4; O2SAT 98
[2024-07-21 17:52] VITALS: TEMP 37.5
[2024-07-21 17:54] VITALS: BP 135/70; PULSE 82; O2SAT 98
[2024-07-21] MEDS: cefTRIAXone 2 GM/NS 100 ML 2 GM/100 ML BAG IVPB (20:35)
[2024-07-21 20:41] VITALS: BP 134/76; PULSE 78; RESP 16; TEMP 37.1; O2SAT 97
[2024-07-21] MEDS: LORATADINE 10 MG TABLET PO (20:55)
[2024-07-21] MEDS: MELATONIN 5 MG TABLET PO (20:55)
[2024-07-22 00:19] VITALS: TEMP 36.8
[2024-07-22] MEDS: ACETAMINOPHEN 500 MG TABLET 1000 MG PO ×2 (00:20→05:47)
[2024-07-22] MEDS: IBUPROFEN 600 MG TABLET PO ×2 (00:20→05:47)
[2024-07-22 04:52] VITALS: BP 118/59; PULSE 74; RESP 16; TEMP 36.3; O2SAT 97
[2024-07-22 05:25] LABS: Hematocrit 27.7 % (37.0-47.0); Hemoglobin 8.8 g/dL (12.0-15.0); Mean Corpuscular HGB Conc 31.8 g/dl (32-36); Mean Platelet Volume 9.4 fl (7.4-10.4); Platelet Count Result 315 k/mm3 (150-375); Red Blood Count 3.26 M/mm3 (4.2-5.4); Red Cell Distribution Width 14.6 % (11.5-14.5); White Blood Count 7.5 K/mm3 (4.5-10.0)
[2024-07-22 05:38] LABS: Alanine Aminotransferase 12 U/L (6-35); Albumin Level 3.3 g/dL (3.5-5.1); Alkaline Phosphatase 48 U/L (38-126); Anion Gap 5 mmol/L (4-12); Aspartate Amino Transferase 14 U/L (14-36); Bilirubin,Total 0.2 mg/dL (0.2-1.3); Blood Urea Nitrogen 10 mg/dL (7-17); Calcium 8.5 mg/dL (8.4-10.2); Carbon Dioxide 31 mmol/L (22-30); Chloride 100 mmol/L (98-107); Estimated CRCL calculation 140 ml/min; Estimated Glomerular Filt Rate > 60; Glucose 104 mg/dL (65-110); Sodium 136 mmol/L (137-145)
[2024-07-22] MEDS: metroNIDAZOLE 500 MG/ISO 100ML 500 MG/100 ML BAG 100 MG IVPB (05:47)
[2024-07-22] MEDS: polyethylene glycoL 3350 17 GM POWD.PACK PO (08:41)
[2024-07-22] MEDS: SIMETHICONE 80 MG TAB.CHEW PO (08:41)
[2024-07-22] MEDS: DOCUSATE SODIUM 100 MG CAPSULE PO (08:41)
--- NOTE | 2024-07-22 09:14 | PM.DS ---
DS: Admitting Diagnosis Discharge Date 07/22/24 Admitting Diagnosis pelvic hematoma postoperative fever DS: Discharge Diagnosis Discharge Diagnosis (1) S/P laparoscopic surgery: Code(s): Z98.890 - Other specified postprocedural states Status: Acute (2) Pelvic hematoma: Status: Acute (3) Postoperative fever: Code(s): R50.82 - Postprocedural fever Status: Acute DS: Summary Hospital Course Hospital Course: Renee is a 54yo P1001, who presented to the ER after calling the office saying she was having increase in pelvic pain and fever, shortness of breath. She had a hysterectomy with vaginal repairs for prolapse 07/15/24 (combined case w/ Dr. Georges). In the ER on 07/19/24, CTA of the chest/abdomen/pelvis was performed and shows a large pelvic hematoma. Her WBC is 8.9. Her hemoglobin is stable from post-op levels. She also reported a lack of appetite. She had a BM 07/19/24. She reports she was having some light vaginal bleeding. Her fever was as high was 102. She was taken to the OR on 07/19/24 PM for diagnostic laparoscopy with evacuation of hematoma. Approximately 480cc of hematoma was removed. There was no active bleeding noted. She was admitted post-op for IV antibiotics. Her pain was controlled with PO meds. She was urinating, ambulating, passing flatus and 2 BMs on 07/22/24. She was tolerating regular diet. Her labs/vitals remained stable, afebrile, down trending WBC. Her incisions were w/o signs of infection. She has f/u in my office on 07/29/24. She will continue PO antibiotics (Augmentin 875/125 PO q12h) for 12 additional days. She was instructed on strict return precautions and when to call the office for any worrisome symptoms. Status at Discharge Functional status at discharge: independent ambulation Overall status at discharge: patient is progressing back to baseline Time Spent with Patient Time attestation: Total time spent providing and/or coordinating discharge services: Exam Const: General: cooperative, comfortable and no acute distress Nutritional Appearance: obese morbidly obese Orientation/consciousness: patient oriented x3 Resp: Effort & Inspection: normal respiratory effort Auscultation: clear to auscultation bilaterally Cardio: Rate: regular rate GI: Inspection: normal to inspection and incision ( LSC incisions c/d/i, lidocaine patch LUQ(nothing noted)) GI Palp: Yes abdominal tenderness (appropriate) and Yes Soft to palpation Auscultation: normal bowel sounds Skin: General skin exam: normal color Neuro: General: patient oriented x3 Psych: Appearance: grossly normal Affect: normal affect Attitude: cooperative DS: Data Data Completed and Pending Labs on day of discharge: Labs from last 24 hours 07/22/24 04:48 WBC 7.5 RBC 3.26 L Hgb 8.8 L Hct 27.7 L MCV 85.0 MCH 27.0 MCHC 31.8 L RDW 14.6 H Plt Count 315 MPV 9.4 Sodium 136 L Potassium 4.0 Chloride 100 Carbon Dioxide 31 H Anion Gap 5 BUN 10 Creatinine 0.60 L Estim Creat Clear Calc 140 Estimated GFR > 60 Glucose 104 Calcium 8.5 Total Bilirubin 0.2 AST 14 ALT 12 Alkaline Phosphatase 48 Total Protein 6.0 L Albumin 3.3 L Preliminary micro results at discharge 07/19/24 12:52 Blood Culture - Preliminary Blood 07/19/24 14:07 Blood Culture - Preliminary Blood Discharge Plan Discharge Attending physician on discharge: Adelaide Horton Discharging Clinician: Adelaide Horton Anticipated Discharge Date/Time: 07/22/24 10:00 Patient Disposition: Home, Self-Care Activity: may shower and pelvic rest Diet: regular Discharge Instructions: - Nothing in the vagina for 6-8 weeks -- showers only. - No heavy lifting over 15 pounds for 6-8 weeks. - Call the office with bright red bleeding, fevers, nausea/vomiting, inability to pass gas/stool, or foul smelling vaginal discharge. Patient Instructions: Antibiotic Form Stand Alone Forms: General Discharge Information Follow-up/Referrals: Adelaide Horton MD [Physician] - 1 Week Discharge Medications: New amoxicillin-pot clavulanate 875-125 mg tablet 1 tablet PO Q12H 12 Days Qty: 24 0RF fluconazole 150 mg tablet 150 mg PO Q72H Qty: 3 0RF Continued krill oil 500 mg capsule 1,000 mg PO DAILY Centrum Silver Women 8 mg iron-400 mcg-50 mcg tablet 1 tablet PO DAILY turmeric root extract 500 mg capsule 500 mg PO DAILY fluticasone propionate 50 mcg/actuation spray,suspension 1 spray INTRANASAL BID Qty: 48 0RF Rx Instructions: administer into each nostril ibuprofen 800 mg Tablet 800 mg PO HS cholecalciferol (vitamin D3) [Vitamin D3] 25 mcg (1,000 unit) Tablet 125 mcg PO DAILY orphenadrine citrate 100 mg tablet extended release 100 mg PO PRN PRN (Reason: Not noted.) melatonin 5 mg Tablet 5 mg PO HS magnesium glycinate 100 mg Tablet 240 mg PO DAILY Zyrtec 10 mg Capsule 10 mg PO DAILY garlic 2,000 mcg PO DAILY azelastine 137 mcg (0.1 %) spray,non-aerosol 2 spray INTRANASAL BID Dry Eye Relief 1-0.2-0.2 % Drops 1 drp EACH EYE 4-6XD PRN (Reason: Dry Eyes) acetaminophen 500 mg tablet 1,000 mg PO TID Qty: 90 0RF docusate sodium [Colace] 100 mg capsule 100 mg PO BID Qty: 90 0RF oxycodone 5 mg tablet See Rx Instructions .ROUTE .COMPLEX PRN (Reason: pain) Qty: 24 0RF Rx Instructions: take 1 tablet q4h PRN moderate pain or take 2 tablets q6h PRN severe pain. Do NOT exceed 8 tablets in 24 hours. hydrochlorothiazide 25 mg tablet 25 mg PO DAILY Qty: 90 1RF montelukast 10 mg tablet 10 mg PO QHS Qty: 90 1RF losartan 100 mg tablet 100 mg PO DAILY Qty: 90 1RF Date of admission: 07/19/24 15:13 Primary Care Provider: UNKNOWN,DOCTOR Admitting Provider: Adelaide Horton Attending physician on admission: Adelaide Horton Condition: Stable
== END 2024-07-22 10:44 | disposition home or self-care (01) ==
LOC: ANHED 14:46 → ANHSURGERY 15:24 → ANH2MED 18:54
PROVIDERS: Admitting Provider Obstetrics & Gynecology; Emergency Provider Emergency Medicine; Visit Provider Obstetrics & Gynecology
PROC: (CPT 49320; principal; 2024-07-19 16:00)
DX: K66.1 Hemoperitoneum (principal); R50.82 Postprocedural fever; Z90.710 Acquired absence of both cervix and uterus; K21.9 Gastro-esophageal reflux disease without esophagitis; I10 Essential (primary) hypertension; J45.20 Mild intermittent asthma, uncomplicated; G47.33 Obstructive sleep apnea (adult) (pediatric); G47.00 Insomnia, unspecified; E66.01 Morbid (severe) obesity due to excess calories; Z68.42 Body mass index [BMI] 45.0-49.9, adult; Z79.51 Long term (current) use of inhaled steroids; Z20.822 Contact with and (suspected) exposure to COVID-19; Z79.899 Other long term (current) drug therapy
CPT/HCPCS: 49322; 36415; 71045; 71275; 74177; 80048; 80053; 81001; 83605; 84145; 84484; 85025; 85027; 85610; 85730; 87040; 87086; 87637; 93005; 96361; 96365; 96375; 96376; 99285; A9270; G0378; J0330; J0690; J0696; J1100; J1171; J1836; J1885; J2003; J2270; J2405; J2704; J3010; J7030; J7120; Q9967

== ENCOUNTER 2024-07-29 10:12 | Emergency (ER) | payer BC, SELFPAY ==
--- NOTE | ~2024-07-29 | CT_ITS ---
CTA chest PE protocol Ordering provider: Anderson Leung MD History: 54 years Female with . tachycardia and sob. 2 weeks post op. . Comparison: July 19, 2024 Technique: CT angiogram chest was performed following timed intravenous injection of contrast. Thin s lice axial images and reformatted coronal images were obtained. Three dimensional reformatted images of the chest were also obtained using a [employer] workstation. . Automated exposure control and iterati ve reconstruction technique were employed. The dose-length product was 859.12 mGy-cm. 100 mL Omnipaqu e 350 was given IV. Findings: PULMONARY ARTERIES: No pulmonary embolus. VISUALIZED THORACIC INLET: Normal. MEDIASTINUM: Aorta/coronary arteries: Mild atheromatous disease. Heart/other: The heart is not enlarged. Lymph nodes: No mediastinal or hilar adenopathy. Thickened wall of the lower esophagus suggestive of reflux esophagitis. Slightly thickened wall of th e stomach. LUNGS: No pulmonary nodules or masses. No infiltrates or effusions. No pneumothorax. Dependent atelectatic c hanges. VISUALIZED UPPER ABDOMEN: Thickened wall of the lower esophagus suggestive of reflux esophagitis. Sli ghtly thickened wall of the stomach. Left adrenal adenoma measuring 2.7 cm. Otherwise, the visualized upper abdomen is normal. MUSCULOSKELETAL: Soft tissues: The superficial soft tissues are normal. Bones: Age appropriate degenerative changes of the spine. IMPRESSION: 1. No pulmonary embolism. 2. Left adrenal adenoma unchanged from previous examination. 3. No acute cardiopulmonary pathology. 4. Thickened lower esophagus which may indicate reflux esophagitis Reviewed, dictated and finalized at location A. [facility]
--- NOTE | ~2024-07-29 | XR_ITS ---
XR chest 2V Ordering provider: Benjamin Bagley History: 54 years Female with . chest pain, increasing heart rate, cough . Comparison: None. FINDINGS: MEDIASTINUM: The cardiac silhouette is not enlarged. LUNGS: No infiltrates, effusions or pneumothorax. OTHER: No free air under the diaphragm. IMPRESSION: No acute cardiopulmonary pathology. Reviewed, dictated and finalized at location A. ET CREASER
--- NOTE | 2024-07-29 10:14 | ECG_ITS ---
Test Date: 2024-07-29 10:20:30 Measurements Intervals [place] Rate: 107 P: 68 SC: 146 QRS: 19 QRSD: 99 T: 41 QT: 330 QTc: 442 Interpretive Statements SINUS TACHYCARDIA BASELINE ARTIFACT- I, III, AVR, AVL, AVF, V1-V6 ABNORMAL ECG Compared to ECG 07/19/2024 13:26:41 HEART RATE HAS INCREASED Electronically Signed On 07-29-2024 14:13:41 DRILLING ASSISTANT by Efren Marin D.O.
[2024-07-29 10:15] VITALS: BP 152/67; PULSE 106; RESP 18; TEMP 36.4; O2SAT 99
[2024-07-29 10:51] LABS: Basophils Absolute Auto 0.1 K/mm3 (0.0-0.1); Basophils Percent Auto 0.4 % (0.2-1.2); Eosinophils Absolute Auto 0.4 K/mm3 (0-0.3); Hematocrit 32.2 % (37.0-47.0); Hemoglobin 10.5 g/dL (12.0-15.0); Immature Granulocyte Absolute 0.17 K/mm3 (0.00-0.031); Immature Granulocyte Percent A 1.3 % (0-0.5); Lymphocytes Percent Auto 16.4 % (18.3-44.2); Mean Corpuscular HGB Conc 32.6 g/dl (32-36); Mean Corpuscular Hemoglobin 27.3 pg (26-34); Mean Corpuscular Volume 83.6 fl (80-100); Mean Platelet Volume 9.1 fl (7.4-10.4); Monocytes Percent Auto 7.6 % (2.6-8.5); Neutrophils Absolute Auto 9.2 K/mm3 (1.3-6.7); Neutrophils Percent Auto 71.3 % (45.5-73.1); Platelet Count Result 469 k/mm3 (150-375); Red Blood Count 3.85 M/mm3 (4.2-5.4); Red Cell Distribution Width 14.9 % (11.5-14.5); White Blood Count 12.8 K/mm3 (4.5-10.0)
[2024-07-29 11:03] LABS: Prothrombin Time 13.7 Seconds (11.1-14.7)
[2024-07-29 11:04] LABS: Partial Thromboplastin Time 44.3 Seconds (22.3-36.8)
[2024-07-29 11:28] LABS: Alanine Aminotransferase 21 U/L (6-35); Albumin Level 4.6 g/dL (3.5-5.1); Alkaline Phosphatase 72 U/L (38-126); Anion Gap 8 mmol/L (4-12); Aspartate Amino Transferase 24 U/L (14-36); Bilirubin,Total 0.5 mg/dL (0.2-1.3); Blood Urea Nitrogen 12 mg/dL (7-17); Calcium 9.7 mg/dL (8.4-10.2); Carbon Dioxide 28 mmol/L (22-30); Chloride 100 mmol/L (98-107); Estimated CRCL calculation 137 ml/min; Estimated Glomerular Filt Rate > 60; Glucose 127 mg/dL (65-110); Lipase 81 U/L (23-300); Potassium 4.2 mmol/L (3.4-5.0); Sodium 136 mmol/L (137-145)
[2024-07-29 11:40] LABS: Troponin I < 0.012 ng/mL (0.000-0.034)
[2024-07-29] MEDS: ASPIRIN 81 MG CHEWABLE TABLET 324 MG PO (13:00)
[2024-07-29 13:11] VITALS: BP 126/69; PULSE 90; RESP 22; TEMP 36.9; O2SAT 97
[2024-07-29 13:23] LABS: NT Pro B Type Natriuretic Pept < 20 pg/mL (19.9-100)
[2024-07-29 14:49] VITALS: BP 140/77; PULSE 88; RESP 12; TEMP 36.7; O2SAT 97
[2024-07-29 16:02] LABS: Troponin I < 0.012 ng/mL (0.000-0.034)
--- NOTE | 2024-07-29 16:12 | ED_ITS ---
HPI - General Adult General Chief complaint: Chest Pain Stated complaint: heart rate up alot chest pain Time Seen by Provider: 07/29/24 12:57 History of Present Illness HPI narrative: This is a 54-year-old female presenting from her OBGYN office for PE evaluation. Patient had a partial hysterectomy performed on July 15. This was complicated by a pelvic hematoma which was removed on the . Since then the patient says that she has developed an achy pain in the left side of her chest that is nonradiating, constant with no exacerbating symptoms. She has also noticed that she is more tachycardic than usual especially when she walks. She has never had a DVT in the past. She does not have any swelling of her lower extremities. She denies fevers chills abdominal pain or urinary symptoms. She does have a chronic cough which he says that is unchanged. Related Data Home Medications Medication Instructions Recorded Confirmed turmeric root extract 500 mg 500 mg PO DAILY 10/17/19 07/19/24 capsule cholecalciferol (vitamin D3) 25 125 mcg PO DAILY 02/10/23 07/29/24 mcg (1,000 unit) tablet (Vitamin D3) ibuprofen 800 mg tablet 800 mg PO HS 02/10/23 07/29/24 krill oil 500 mg capsule 1,000 mg PO DAILY 05/01/23 07/29/24 [id number] 8 mg-folic 400 1 tablet PO DAILY 05/01/23 07/29/24 mcg-K 50 mcg-lutein 300 mcg tablet (Centrum Silver Women) azelastine 137 mcg (0.1 %) nasal 2 spray intranasal BID 07/03/24 07/29/24 spray peg [id number] 1 1 drp EACH EYE 4-6XD PRN Dry Eyes 07/03/24 07/19/24 %-0.2 %-0.2 % eye drops (Dry Eye Relief) cetirizine 10 mg capsule (Zyrtec) 10 mg PO DAILY 07/19/24 07/29/24 garlic 2,000 mcg PO DAILY 07/19/24 07/29/24 magnesium glycinate 100 mg (as 240 mg PO DAILY 07/19/24 07/29/24 glycinate) tablet melatonin 5 mg tablet 5 mg PO HS 07/19/24 07/29/24 Allergies Allergy/AdvReac Type Severity Reaction Status Date / Time erythromycin base Allergy Mild Gastrointestinal Verified 07/29/24 10:20 Upset methylprednisolone AdvReac Mild Other Verified 07/29/24 10:20 PMFSH Past Medical History Medical History Allergic rhinitis, unspecified Amenorrhea, unspecified Asthma Asthma Asymptomatic premature menopause Body mass index [BMI] 36.0-36.9, adult Colon cancer screening Encounter for insertion of mirena IUD 2018 Essential (primary) hypertension GERD (gastroesophageal reflux disease) Hypertension Insomnia, unspecified Mild intermittent asthma Morbid obesity Obesity due to excess calories Obstructive sleep apnea (adult) (pediatric) Sinusitis Vaginal delivery Vitamin D deficiency, unspecified Surgical History Surgical History Hematoma 07/19/24 hematoma removal following hyst History of ankle surgery History of dilation and curettage History of dilation and curettage History of endometrial ablation History of endometrial ablation S/P laparoscopic hysterectomy RA TLH w/BS 07/15/2024 Family History Family History Father Hypertension Lung cancer Heart disease Sibling Hypertension Mother Heart disease Fatty liver Mother Family history of hypercholesterolemia Father Hypertension, Onset Age: 25 Other Family history of arthritis Family history of lung cancer Family history of thyroid disease Social History Social History Smoking status: Never smoker Second hand tobacco smoke exposure: No Alcohol intake: current Alcohol use details: socially Substance use: never Substance use type: does not use Do You Feel Safe in your Home?: Yes Lack of Transportation: No Lack of Food: Never True Current Housing: I Have Housing Concerned About Future Housing: No Difficulty Paying Gas/Electric Bills: No Difficulty Paying for Meds: No Currently Unemployed: No Education: Bachelor's Degree Difficulty w/ Childcare or Family Care: No Living arrangements: with family Occupation/Education: occupation 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 Head: atraumatic. EYES: EOMI, NOSE: Atraumatic NECK: Trachea midline RESPIRATORY: No increased rate of breathing,ctab CARDIOVASCULAR: Tachycardia, no peripheral edema ABDOMINAL: Non-distended, obese MUSCULOSKELETAl: No obvious deformities NEURO: Alert. Moving 4/4 extremities SKIN:: Warm, dry. Normal color PSYCHIATRIC: Normal affect Course Vital Signs Vital signs: Vital Signs Temperature 97.6 F 07/29/24 10:15 Pulse Rate 106 H 07/29/24 10:15 Respiratory Rate 18 07/29/24 10:15 Blood Pressure 152/67 H 07/29/24 10:15 Pulse Oximetry 99 07/29/24 10:15 Oxygen Delivery Room Air 07/29/24 10:15 Temperature 98.1 F 07/29/24 14:49 Pulse Rate 88 07/29/24 14:49 Respiratory Rate 12 07/29/24 14:49 Blood Pressure 140/77 07/29/24 14:49 Pulse Oximetry 97 07/29/24 14:49 Oxygen Delivery Room Air 07/29/24 13:02 Medical Decision Making MDM Narrative Medical decision making narrative: -Course: 54-year-old female presenting for chest pain and dyspnea after surgery. laboratory studies, CT PE chest x-ray and EKG all within normal limits. Results were explained to the patient. her heart rate has normalized without intervention. no hypoxia. Patient will be discharged follow-up with her primary care physician OBGYN for further management. -DDX includes but is not limited to: ACS, pneumonia, PE, pneumothorax, viral syndrome, dehydration -External Chart Review: review of OBGYN office visit -Independent interpretation of studies: labs reviewed, imaging reviewed Independent EKG interpretation: Rhythm [sinus], Rate [107], Amma -[normal], DC -[normal], QRS [narrow], QTC [normal], T waves -[negative for concerning inversions], ST Segments - [Negative for concerning elevations] Final interpretations: sinus tachycardia -Shared decision making / Disposition: discharge Vital Signs Vital Signs: Vital Signs Temperature 97.6 F 07/29/24 10:15 Pulse Rate 106 H 07/29/24 10:15 Respiratory Rate 18 07/29/24 10:15 Blood Pressure 152/67 H 07/29/24 10:15 Pulse Oximetry 99 07/29/24 10:15 Oxygen Delivery Room Air 07/29/24 10:15 Temperature 98.1 F 07/29/24 14:49 Pulse Rate 88 07/29/24 14:49 Respiratory Rate 12 07/29/24 14:49 Blood Pressure 140/77 07/29/24 14:49 Pulse Oximetry 97 07/29/24 14:49 Oxygen Delivery Room Air 07/29/24 13:02 Lab Data 07/29/24 10:37 07/29/24 10:36 Labs: Lab Results 07/29/24 07/29/24 07/29/24 Range/Units 10:30 10:35 10:36 WBC (4.5-10.0) K/mm3 RBC (4.2-5.4) M/mm3 Hgb (12.0-15.0) g/dL Hct (37.0-47.0) % MCV (80-100) fl MCH (26-34) pg MCHC (32-36) g/dl RDW (11.5-14.5) % Plt Count (150-375) k/mm3 MPV (7.4-10.4) fl Immature Gran % (Auto) (0-0.5) % Neut % (Auto) (45.5-73.1) % Lymph % (Auto) (18.3-44.2) % Mcdonald % (Auto) (2.6-8.5) % Eos % (Auto) (0-4.4) % Baso % (Auto) (0.2-1.2) % Lymph # (Auto) (0.9-3.2) K/mm3 Mcdonald # (Auto) (0.1-0.6) K/mm3 Eos # (Auto) (0-0.3) K/mm3 Baso # (Auto) (0.0-0.1) K/mm3 Abs Immat Gran (auto) (0.00-0.031) K/mm3 Absolute Neuts (auto) (1.3-6.7) K/mm3 Absolute Nucleated RBC (0.0-0.012) K/mm3 Nucleated RBC % (0.0-0.2) % PT 13.7 (11.1-14.7) Seconds INR 1.0 APTT 44.3 H (22.3-36.8) Seconds Sodium 136 L (137-145) mmol/L Potassium 4.2 (3.4-5.0) mmol/L Chloride 100 (98-107) mmol/L Carbon Dioxide 28 (22-30) mmol/L Anion Gap 8 (4-12) mmol/L BUN 12 (7-17) mg/dL Creatinine 0.60 L (0.7-1.0) mg/dL Estim Creat Clear Calc 137 ml/min Estimated GFR > 60 (59 - ) Glucose 127 H (65-110) mg/dL Calcium 9.7 (8.4-10.2) mg/dL Magnesium 2.0 (1.6-2.3) mg/dL Total Bilirubin 0.5 (0.2-1.3) mg/dL AST 24 (14-36) U/L ALT 21 (6-35) U/L Alkaline Phosphatase 72 (38-126) U/L Troponin I < 0.012 (0.000-0.034) ng/mL NT-Pro-B Natriuret Pep < 20 (19.9-100) pg/mL Total Protein 9.0 H (6.3-8.2) g/dL Albumin 4.6 (3.5-5.1) g/dL Lipase 81 (23-300) U/L 07/29/24 07/29/24 Range/Units 10:37 15:30 WBC 12.8 H (4.5-10.0) K/mm3 RBC 3.85 L (4.2-5.4) M/mm3 Hgb 10.5 L (12.0-15.0) g/dL Hct 32.2 L (37.0-47.0) % MCV 83.6 (80-100) fl MCH 27.3 (26-34) pg MCHC 32.6 (32-36) g/dl RDW 14.9 H (11.5-14.5) % Plt Count 469 H (150-375) k/mm3 MPV 9.1 (7.4-10.4) fl Immature Gran % (Auto) 1.3 H (0-0.5) % Neut % (Auto) 71.3 (45.5-73.1) % Lymph % (Auto) 16.4 L (18.3-44.2) % Mcdonald % (Auto) 7.6 (2.6-8.5) % Eos % (Auto) 3.0 (0-4.4) % Baso % (Auto) 0.4 (0.2-1.2) % Lymph # (Auto) 2.10 (0.9-3.2) K/mm3 Mcdonald # (Auto) 1.0 H (0.1-0.6) K/mm3 Eos # (Auto) 0.4 H (0-0.3) K/mm3 Baso # (Auto) 0.1 (0.0-0.1) K/mm3 Abs Immat Gran (auto) 0.17 H (0.00-0.031) K/mm3 Absolute Neuts (auto) 9.2 H (1.3-6.7) K/mm3 Absolute Nucleated RBC 0.000 (0.0-0.012) K/mm3 Nucleated RBC % 0.0 (0.0-0.2) % PT (11.1-14.7) Seconds INR APTT (22.3-36.8) Seconds Sodium (137-145) mmol/L Potassium (3.4-5.0) mmol/L Chloride (98-107) mmol/L Carbon Dioxide (22-30) mmol/L Anion Gap (4-12) mmol/L BUN (7-17) mg/dL Creatinine (0.7-1.0) mg/dL Estim Creat Clear Calc ml/min Estimated GFR (59 - ) Glucose (65-110) mg/dL Calcium (8.4-10.2) mg/dL Magnesium (1.6-2.3) mg/dL Total Bilirubin (0.2-1.3) mg/dL AST (14-36) U/L ALT (6-35) U/L Alkaline Phosphatase (38-126) U/L Troponin I < 0.012 (0.000-0.034) ng/mL NT-Pro-B Natriuret Pep (19.9-100) pg/mL Total Protein (6.3-8.2) g/dL Albumin (3.5-5.1) g/dL Lipase (23-300) U/L Discharge Plan Discharge Clinical Impression: Atypical chest pain Patient Disposition: Home, Self-Care Condition: Stable Instructions: Antibiotic Form, Chest Pain (ED) Additional Instructions: he was seen in the emergency department for chest pain. Thankfully her workup here was negative. Please follow-up with your primary care physician and your OBGYN for further management. Return to the ED if you develop fevers, worsening chest pain or shortness of breath. Prescriptions: No Action krill oil 500 mg capsule 1,000 mg PO DAILY Centrum Silver Women 8 mg iron-400 mcg-50 mcg tablet 1 tablet PO DAILY turmeric root extract 500 mg capsule 500 mg PO DAILY fluticasone propionate 50 mcg/actuation spray,suspension 1 spray INTRANASAL BID Qty: 48 0RF Rx Instructions: administer into each nostril ibuprofen 800 mg Tablet 800 mg PO HS cholecalciferol (vitamin D3) [Vitamin D3] 25 mcg (1,000 unit) Tablet 125 mcg PO DAILY melatonin 5 mg Tablet 5 mg PO HS magnesium glycinate 100 mg Tablet 240 mg PO DAILY Zyrtec 10 mg Capsule 10 mg PO DAILY garlic 2,000 mcg PO DAILY amoxicillin-pot clavulanate 875-125 mg tablet 1 tablet PO Q12H 12 Days Qty: 24 0RF fluconazole 150 mg tablet 150 mg PO Q72H Qty: 3 0RF azelastine 137 mcg (0.1 %) spray,non-aerosol 2 spray INTRANASAL BID Dry Eye Relief 1-0.2-0.2 % Drops 1 drp EACH EYE 4-6XD PRN (Reason: Dry Eyes) acetaminophen 500 mg tablet 1,000 mg PO TID Qty: 90 0RF docusate sodium [Colace] 100 mg capsule 100 mg PO BID Qty: 90 0RF hydrochlorothiazide 25 mg tablet 25 mg PO DAILY Qty: 90 1RF montelukast 10 mg tablet 10 mg PO QHS Qty: 90 1RF losartan 100 mg tablet 100 mg PO DAILY Qty: 90 1RF Follow-up/Referrals: Unruly,Dalton Vieira [Other]
[2024-07-29 16:17] VITALS: BP 137/82; PULSE 90; RESP 11; TEMP 36.7; O2SAT 98
== END 2024-07-29 16:43 | disposition home or self-care (01) ==
PROVIDERS: Emergency Medicine; Physician Assistant; Emergency Provider Emergency Medicine
DX: R07.89 Other chest pain (principal); Z98.890 Other specified postprocedural states; I10 Essential (primary) hypertension; J45.20 Mild intermittent asthma, uncomplicated; E55.9 Vitamin D deficiency, unspecified; E66.01 Morbid (severe) obesity due to excess calories; Z68.42 Body mass index [BMI] 45.0-49.9, adult; G47.33 Obstructive sleep apnea (adult) (pediatric); K21.9 Gastro-esophageal reflux disease without esophagitis; Z90.79 Acquired absence of other genital organ(s); Z90.710 Acquired absence of both cervix and uterus; Z79.899 Other long term (current) drug therapy
CPT/HCPCS: 36415; 71046; 71275; 80053; 83690; 83735; 83880; 84484; 85025; 85610; 85730; 93005; 99284; A9270; Q9967

== ENCOUNTER 2024-09-19 15:20 | Outpatient (CLI) | payer BC, SELFPAY ==
--- NOTE | ~2024-09-19 | US_ITS ---
EXAM: PELVIC ULTRASOUND HISTORY: Z90.710 - Acquired absence of both cervix and uterus with continued bleeding and pain COMPARISON: Reference is made to CT examination of the chest abdomen and pelvis dated 07/19/2024. FINDINGS: UTERUS: The uterus is surgically absent. Within the rectovaginal pouch, to the right of midline is a complex focus of mixed echogenicity measu ring 4.8 x 3.1 x 4.8 cm. Vascular flow is demonstrated within this complex area. RIGHT OVARY: Despite prolonged interrogation, the right ovary was not definitively visualized. LEFT OVARY: The left ovary is unremarkable in size measuring 3.8 x 4.0 x 3.9 cm Multiple small cysts and follicles are present. Both arterial and venous flow are identified. IMPRESSION: Findings within the rectovaginal pouch, to the right of midline which may represent residual hematoma versus enlarged right ovary (possibly a hemorrhagic cyst) for which cross-sectional imaging (contras t-enhanced CT versus MRI) is suggested for further evaluation. Reviewed, dictated and finalized at location A. BOY IMPRESSION: Findings within the rectovaginal pouch, to the right of midline which may repre sent residual hematoma versus enlarged right ovary (possibly a hemorrhagic cyst ) for which cross-sectional imaging (contrast-enhanced CT versus MRI) is sugges tavo for further evaluation.
== END 2024-09-19 15:21 | disposition home or self-care (01) ==
LOC: MICIMG 15:20
PROVIDERS: PCP Obstetrics & Gynecology; Visit Provider Obstetrics & Gynecology
DX: R10.2 Pelvic and perineal pain (principal); Z90.710 Acquired absence of both cervix and uterus
CPT/HCPCS: 76830; 76856

== ENCOUNTER 2024-10-07 13:26 | Outpatient (CLI) | payer BC, SELFPAY ==
--- NOTE | ~2024-10-07 | MR_ITS ---
EXAMINATION: MR pelvis wo/w con DATE: 10/07/2024 15:11 INDICATION: Pelvic and perineal pain. TECHNIQUE: Magnetic resonance imaging (MRI) of the pelvis was performed without and with 20 mL Multih ance intravenous contrast. Fullfield sequences of the pelvis included axial and coronal T2-weighted S S FSE, coronal 2D FIESTA, axial T1-weighted FSPGR, axial dual-echo T1-weighted FSPGR and axial T1 dalton ghted LAVA. Small field of view sequences included axial, sagittal and coronal T2-weighted FSE cente red on the uterus and adnexa. Postcontrast sequences included a time course axial T1-weighted LAVA w ith full-field of view of the pelvis. COMPARISON: Ultrasound dated 09/19/[address] dated 07/19/2024 FINDINGS: Partially decompressed bladder is normal. Visualized portions of bowels are unremarkable with no dila tion to suggest obstruction. Status post hysterectomy with tiny foci of susceptibility artifact along the vaginal cuff.. The ovaries are positioned along the left and right sides of the uterine fossa. T here are small nonenhancing cysts in the bilateral ovaries measuring up to 1.8 cm and the left kidney and 8 mm in the right ovary. There is an additional 4.0 x 3.5 x 2.9 cm nonenhancing T2 hyperintense fluid collection with lobular margins positioned in the uterine fossa along the cephalad margin of th e vaginal cuff and body the medial margin of both the left and right ovaries. There is increased T1 s ignal along the periphery of the lesion consistent with blood or increased protein content. No eviden t solid nodular enhancing soft tissue component. No pathologically enlarged pelvic or inguinal lympha denopathy. Visualized bone marrow signal is normal throughout. IMPRESSION: 1. 4.0 x 3.5 x 2.9 cm complex fluid collection at the uterine fossa which abuts both the left and rig ht ovaries. Differential would include residual postoperative evolving hematoma/seroma versus complex proteinaceous/hemorrhagic cyst arising from either the left or right ovaries. Reviewed, dictated and finalized at location B. AND SOIL TECHNICIAN IMPRESSION: 1. 4.0 x 3.5 x 2.9 cm complex fluid collection at the uterine fossa which abuts both the left and right ovaries. Differential would include residual postopera tive evolving hematoma/seroma versus complex proteinaceous/hemorrhagic cyst pacheco sing from either the left or right ovaries.
== END 2024-10-07 13:27 | disposition home or self-care (01) ==
LOC: MICIMG 13:28
PROVIDERS: PCP Obstetrics & Gynecology; Visit Provider Obstetrics & Gynecology
DX: R93.89 Abnormal findings on diagnostic imaging of other specified body structures (principal); R10.2 Pelvic and perineal pain; Z98.890 Other specified postprocedural states
CPT/HCPCS: 72197; A9577

== ENCOUNTER 2024-10-31 11:12 | Outpatient (CLI) | payer BC, SELFPAY ==
--- NOTE | ~2024-10-31 | XR_ITS ---
EXAMINATION: XR chest 2V 10/31/2024 11:24 INDICATION: Acute upper respiratory infection PROCEDURE: 2 view chest COMPARISON: Comparison to multiple prior studies sequentially, with oldest reviewed study dated 08/11. FINDINGS: The lungs are clear. The cardiomediastinal silhouette is within normal limits. There are no pleural effusions. There is no pneumothorax suspected. IMPRESSION: 1: NO ACUTE CARDIOPULMONARY DISEASE. Reviewed, dictated and finalized at location B. AND SIZER
== END 2024-10-31 11:13 | disposition home or self-care (01) ==
PROVIDERS: PCP Obstetrics & Gynecology
DX: J06.9 Acute upper respiratory infection, unspecified (principal)
CPT/HCPCS: 71046

== ENCOUNTER 2024-11-25 11:49 | Outpatient (CLI) | payer BC, SELFPAY ==
--- NOTE | ~2024-11-25 | CT_ITS ---
EXAMINATION: CT sinus wo con DATE: 11/25/2024 12:06 INDICATION: Chronic maxillary sinusitis TECHNIQUE: Computed tomography (CT) of the paranasal sinuses was performed without intravenous contra st. The dose-length product was 277.35 mGy-cm. Automated exposure control and iterative reconstructio n technique were employed. COMPARISON: CT dated 08/26/2011 FINDINGS: There is mucosal thickening with air-fluid levels in the maxillary sinuses. There is mild m ucosal thickening of the left sphenoid sinus. No significant nasal septal deviation. There is partial opacification of the ostiomeatal units bilaterally. No mucoperiosteal reaction. IMPRESSION: 1. Mild sinus disease primarily involving the maxillary sinuses. Reviewed, dictated and finalized at location B.
== END 2024-11-25 11:50 | disposition home or self-care (01) ==
LOC: MICIMG 11:50
DX: J32.0 Chronic maxillary sinusitis (principal)
CPT/HCPCS: 70486

== ENCOUNTER 2025-07-10 14:56 | Outpatient (CLI) | payer BC, SELFPAY ==
--- OUTSIDE RECORDS SUMMARY | 2025-01-02 12:30 | XMS_ITS ---
Author Organization [facility] [employer] [facility] [place] ([address]) Address [address] [place] [address] Care Team Providers Care Donor Recruiter Name Role Phone Norman LEWIS, Gurjit Primary Care Provider Unavailab Elisha Hernandez Unavailable [phone] Amanuel Rutherford Unavailable [phone] REASON FOR VISIT SCIT - Traditional Schedule Allergy Immunotherapy (Week ) Social History Sex Assigned At : Social History Observation Description Sex Assigned At Female Encounters Encounter Location Date Provider Diagnosis [facility] [address] [place] [address] 01/02/2025 Amanuel Rutherford Allergic rhinitis du e to pollen J30.1 ; Other allergic rhinitis J30.89 ; Allergic rhinitis due to animal (cat) (dog) hair and dander J30.81 and Other chronic allergic conjunctivitis H10.45 Assessments Encounter Date Diagnosis (ICD Code) Assessment Notes Treatment Notes Treatment Clinical Notes Section Notes 01/02/2025 Allergic rhinitis due to pollen (ICD-10 - J30.1) 01/02/2025 Other allergic rhinitis (ICD-10 - J30.89) 01/02/2025 Allergic rhinitis due to animal (cat) (dog) hair and dander (ICD-10 - J30.81) 01/02/2025 Other chronic allergic conjunctivitis (ICD-10 - H10.45) Plan Of Treatment Next Appt Details Follow Up: As scheduled, [place] son: Provider Name:Amanuel Rutherford , 08/04/2025 08:30:00 AM, [address] [facility], [address], [place], [address], Provider Name:Amanuel Rutherford , 09/01/2025 08:30:00 AM, [address] [facility], [address], [place], [address], Provider Name:Amanuel Rutherford , 09/29/2025 08:30:00 AM, [address] [facility], [address], [place], [address], Progress Notes * Renee FRANCEDOB: [birth year] (55 yo F)Acc No.[id number]:01/02/2025 SCIT-Aeroallergen Patient: Renee CORTEZ Provider: Lana Rutherford MD :1970 A ge:54 Y S ex:Female Date:01/02/2025 Address:[address] [place] [address] [id number] Pcp:Gurjit Austin MD Subjective: * Chief Complaints: * 1 . SCIT - Traditional Schedule Allergy Immunotherapy (Week ). * HPI: * Introduction: The patient is here for scheduled immunotherapy. Please see the attached specialty form regarding the specifics of the administration of these vaccines. As per our protocol, they must undergo a screening health questionnaire (medication changes, reaction(s) to last immunotherapy dose(s), current health status, ACT (if appropriate), self-injectable epinephrine on patient(?) and peak flow (if appropriate)). Also, the patient must wait in our office for 30 minutes after receiving the vaccine(s). Furthermore, every patient must have an epinephrine pen (self-injectable) with them at the time of administration--and carry if for the following 1.5 hours after they leave our office. The patient must also have taken their antihistamine the day of the injection, preferably 2 hours prior. The consent form for SCIT (subcutaneous immunotherapy) is on file. * Medical History: Objective: * Vitals: Assessment: * Assessment: 1. A llergic rhinitis due to pollen - J30.1 (Primary) 2 . O ther allergic rhinitis - J30.89 3 . A llergic rhinitis due to animal (cat) (dog) hair and dander - J30.81 4 . O ther chronic allergic conjunctivitis - H10.45 Plan: * Treatment: * Preventive Medicine: Counseling: E xercise A void heavy lifting on days of allergy immunotherapy. M edication instruction: I njectable epinephrine education and instruction w/ discussion of signs and symptoms of anaphylaxis and reasons to seek urgent or emergent care, Watch for side effects of prescribed medications. E ducation: A ble to return demonstration of self-injectable epinephrine. * Follow Up: A s scheduled * Billing Information: * Visit Code: * Procedure Codes: 95545 IMMUNOTHERAPY INJECTIONS. * Electronic signature of Celia Rutherford MD, FAAAAI on 07/10/2025 at 03:22 PM CDT Sign off status: Pending * Provider: Lana Rutherford MD Date: 0 01/02/2025 Generated for Adriennei kenny/Rosie/Sujathasmitting on: 1 03:22 PM CDT History and Physical Notes * HPI (History of Present Illness) Category Sub-Category Detail Notes Category Not es *Introduction The patient is here for scheduled immunotherapy. Please see the attached specialty form regarding the specifics of the administration of these vaccines. As per our protocol, they must undergo a screening health questionnaire (medication changes, reaction(s) to last immunotherapy dose(s), current health status, ACT (if appropriate), self-injectable epinephrine on patient(?) and peak flow (if appropriate)). Also, the patient must wait in our office for 30 minutes after receiving the vaccine(s). Furthermore, every patient must have an epinephrine pen (self-injectable) with them at the time of administration--and carry if for the following 1.5 hours after they leave our office. The patient must also have taken their antihistamine the day of the injection, preferably 2 hours prior. The consent form for SCIT (subcutaneous immunotherapy) is on file.
--- NOTE | ~2025-07-10 | MM_ITS ---
EXAMINATION: MM screening [facility] BI w tc HISTORY: Screening TECHNIQUE: Craniocaudal and mediolateral oblique 3-D tomosynthesis images were obtained and synthetic 2-D images were generated. CAD analysis was submitted and interpreted. COMPARISON: Comparison to multiple prior studies sequentially, with oldest reviewed study dated 10/25/2017. BREAST PARENCHYMAL COMPOSITION: Not dense: There are scattered areas of fibroglandular density. FINDINGS: There is no evidence of suspicious mass, calcification, or architectural distortion to suggest malignancy in either breast. There has been no suspicious interval change. IMPRESSION: 1. No mammographic evidence of malignancy. 2. Recommend routine screening mammography in one year. BI-RADS Category 1: Negative Reviewed, dictated and finalized at location B.
--- OUTSIDE RECORDS SUMMARY | 2025-07-10 03:30 | XMS_ITS ---
Author Organization [facility] [employer] [place] ([address]) Address [address] [place] [address] Care Team Providers Care Feed Management Advisor Name Role Phone Gurjit Austin MD Primary Care Provider Unavailab Elisha Hernandez Unavailable [phone] Amanuel Rutherford Unavailable [phone] REASON FOR VISIT SCIT - Traditional Schedule Allergy Immunotherapy (Week ) Medications Medication SIG (Take, Route, Frequency, Duration) Notes Start Date End Date Status Centrum Silver - as directed Orally Active Ibuprofen 800 MG 1 tablet with food or milk as needed Orally Three times a day Active Xhance 93 MCG/ACT 2 sprays (1 spray in each nostril) Nasally Twice a day Active Krill Oil 1000 MG as directed Orally Active Turmeric 400 MG as directed Orally Active AEROCHAMBER MDI SPACER N/A user with mdi inhalers by mouth q4-6 hours PRN; Duration: 30 days Not-Taking Fluticasone-Salmeterol 113-14 MCG/ACT 1 puff Inhalation Twice a day; Duration: 30 days Active AeroChamber MV - as directed; Duration: 30 days Any adult spacer Active Albuterol Sulfate HFA 108 (90 Base) MCG/ACT 2 puffs as needed Inhalation every 4 hrs; Duration: 30 days Active PROVENTIL HFA 90 mcg/inh 2 puff(s) inhal ed 4 times a day; Duration: 30 days Not-Taking FLONASE 50 mcg/inh 2 spray(s) intranasally once a day; Duration: 30 day(s) Active NASAL WASHES N/A as directed intranasally as needed; Duration: 30 Active SIT (Traditional) variable - see record per schedule subcutaneous per schedule; Duration: 999 days Active Ipratropium [place] 0.06 % 2 sprays in e ach nostril Nasally Two times a day; Duration: 30 days Active FEXOFENADINE 180 mg 1 tab(s) orally once a day Active SINGULAIR 10 mg 1 tab(s) orally once a day Active Magnesium Glycinate 100 MG as directed Orally Not-Taking ZyrTEC 10mg 1 tablet PO Qday A ctive Azelastine HCl 137 MCG/SPRAY SPRAY 2 PUF FS INTO EACH NOSTRIL TWICE A DAY 30 DAYS; Duration: 90 Active Fexofenadine HCl 180 MG 1 tab(s) orally once a day Not-Taking Flonase Allergy Relief 50 MCG/ACT 2 spray(s) intranasally once a day; Duration: 30 day(s) Active EPINEPHrine 0.3 MG/0.3ML as directed Injection as directed; Duration: 30 days 07/04/2024 Active Orphenadrine Citrate 30 MG/ML 2 mL Injection every 12 hrs Not-Taking Fexofenadine HCl 180 MG 1 tablet Swallow whole with water; do not take with fruit juices. Orally Once a day Not-Taking Fluticasone-Salmeterol 113-14 MCG/ACT INHALE 1 PUFF INTO THE LUNGS TWICE A DAY FOR 30 DAYS; Duration: 30 Active Proventil HFA 108 (90 Base) MCG/ACT 2 puff(s) inhaled 4 times a day; Duration: 30 day(s) Active Vitamin D3 125 MCG (5000 UT) 1 cap(s) or ally once a day; Duration: 30 day(s) Active Singulair 10 MG 1 tab(s) orally once a day Active hydroCHLOROthiazide 25 MG 1 tab(s) orall y once a day; Duration: 30 day(s) Active Losartan Potassium 25 MG 1 tab(s) orally once a day; Duration: 30 day(s) Active ZyrTEC Allergy 10 MG 1 tablet PO Qday Active Garlic 2000 MG as directed Orally Active Social History Sex Assigned At : Social History Observation Description Sex Assigned At Female Encounters Encounter Location Date Provider Diagnosis [facility] [address] [place] [address] 07/10/2025 Amanuel Rutherford Allergic rhinitis du e to pollen J30.1 ; Other allergic rhinitis J30.89 ; Allergic rhinitis due to animal (cat) (dog) hair and dander J30.81 and Other chronic allergic conjunctivitis H10.45 Assessments Encounter Date Diagnosis (ICD Code) Assessment Notes Treatment Notes Treatment Clinical Notes Section Notes 07/10/2025 Allergic rhinitis due to pollen (ICD-10 - J30.1) 07/10/2025 Other allergic rhinitis (ICD-10 - J30.89) 07/10/2025 Allergic rhinitis due to animal (cat) (dog) hair and dander (ICD-10 - J30.81) 07/10/2025 Other chronic allergic conjunctivitis (ICD-10 - H10.45) Plan Of Treatment Next Appt Details Follow Up: As scheduled, [place] son: Provider Name:Amanuel H. Krish , 08/04/2025 08:30:00 AM, [address] [facility], [address], [address], Provider Name:Amanuel H. Krish , 09/01/2025 08:30:00 AM, [address] [facility], [address], [address], Provider Name:Amanuel Waller Krish , 09/29/2025 08:30:00 AM, [address] [facility], [address], [address], Progress Notes * Renee FRANCEDOB: [birth year] (55 yo F)Acc No.[id number]:07/10/2025 SCIT-Aeroallergen Patient: Renee CORTEZ Provider: Lana Rutherford MD :1970 A ge:55 Y S ex:Female Date:07/10/2025 Address:[address] [place] [address] , [id number] Pcp:Gurjit Austin MD Subjective: * Chief Complaints: * S CIT - Traditional Schedule Allergy Immunotherapy (Week ) * HPI: * Introduction: The patient is [...] immunotherapy) is on file. * Medical History: * Surgical History: * Hospitalization/Major Diagno stic Procedure: * Medications: T akingZyrTEC 10mg tablet 1 tablet PO Qday ZyrTEC 10mg tablet 1 tablet PO Qday SINGULAIR 10 mg tablet 1 tab(s) orally once a day NASAL WASHES N/A 1 quart of sterilized tap water or distilled water, 1 tsp NaCl, 1 pinch of baking soda as directed intranasally as needed FLONASE 50 mcg/inh spray 2 spray(s) intranasally once a day FEXOFENADINE 180 mg tablet 1 tab(s) orally once a day Ipratropium [place] 0.06 % Solution 2 sprays in each nostril Nasally Two times a day SIT (Traditional) variable - see record variable - see record per schedule subcutaneous per schedule Fluticasone-Salmeterol 113-14 MCG/ACT Aerosol Powder Breath Activated 1 puff Inhalation Twice a day Albuterol Sulfate HFA 108 (90 Base) MCG/ACT Aerosol Solution 2 puffs as needed Inhalation every 4 hrs AeroChamber MV - Miscellaneous as directed Any adult spacerXhance 93 MCG/ACT Exhaler Suspension 2 sprays (1 spray in each nostril) Nasally Twice a day Ibuprofen 800 MG Tablet 1 tablet with food or milk as needed Orally Three times a day Centrum Silver - Tablet as directed Orally Turmeric 400 MG Capsule as directed Orally Krill Oil 1000 MG Capsule as directed Orally Garlic 2000 MG Tablet Delayed Release as directed Orally ZyrTEC Allergy 10 MG Tablet 1 tablet PO Qday Singulair 10 MG Tablet 1 tab(s) orally once a day Losartan Potassium 25 MG Tablet 1 tab(s) orally once a day hydroCHLOROthiazide 25 MG Tablet 1 tab(s) orally once a day Vitamin D3 125 MCG (5000 UT) Capsule 1 cap(s) orally once a day Proventil HFA 108 (90 Base) MCG/ACT Aerosol Solution 2 puff(s) inhaled 4 times a day EPINEPHrine 0.3 MG/0.3ML Solution Auto-injector as directed Injection as directed Flonase Allergy Relief 50 MCG/ACT Suspension 2 spray(s) intranasally once a day Fluticasone-Salmeterol 113-14 MCG/ACT Aerosol Powder Breath Activated INHALE 1 PUFF INTO THE LUNGS TWICE A DAY FOR 30 DAYS Azelastine HCl 137 MCG/SPRAY Solution SPRAY 2 PUFFS INTO EACH NOSTRIL TWICE A DAY 30 DAYS Taking ZyrTEC 10mg tablet 1 tablet PO Qday Taking ZyrTEC 10mg tablet 1 tablet PO Qday Taking SINGULAIR 10 mg tablet 1 tab(s) orally once a day Taking NASAL WASHES N/A 1 quart of sterilized tap water or distilled water, 1 tsp NaCl, 1 pinch of baking soda as directed intranasally as needed Taking FLONASE 50 mcg/inh spray 2 spray(s) intranasally once a day Taking FEXOFENADINE 180 mg tablet 1 tab(s) orally once a day Taking Ipratropium [place] 0.06 % Solution 2 sprays in each nostril Nasally Two times a day Taking SIT (Traditional) variable - see record variable - see record per schedule subcutaneous per schedule Taking Fluticasone-Salmeterol 113-14 MCG/ACT Aerosol Powder Breath Activated 1 puff Inhalation Twice a day Taking Albuterol Sulfate HFA 108 (90 Base) MCG/ACT Aerosol Solution 2 puffs as needed Inhalation every 4 hrs Taking AeroChamber MV - Miscellaneous as directed Any adult spacerTaking Xhance 93 MCG/ACT Exhaler Suspension 2 sprays (1 spray in each nostril) Nasally Twice a day Taking Ibuprofen 800 MG Tablet 1 tablet with food or milk as needed Orally Three times a day Taking Centrum Silver - Tablet as directed Orally Taking Turmeric 400 MG Capsule as directed Orally Taking Krill Oil 1000 MG Capsule as directed Orally Taking Garlic 2000 MG Tablet Delayed Release as directed Orally Taking ZyrTEC Allergy 10 MG Tablet 1 tablet PO Qday Taking Singulair 10 MG Tablet 1 tab(s) orally once a day Taking Losartan Potassium 25 MG Tablet 1 tab(s) orally once a day Taking hydroCHLOROthiazide 25 MG Tablet 1 tab(s) orally once a day Taking Vitamin D3 125 MCG (5000 UT) Capsule 1 cap(s) orally once a day Taking Proventil HFA 108 (90 Base) MCG/ACT Aerosol Solution 2 puff(s) inhaled 4 times a day Taking EPINEPHrine 0.3 MG/0.3ML Solution Auto-injector as directed Injection as directed Taking Flonase Allergy Relief 50 MCG/ACT Suspension 2 spray(s) intranasally once a day Taking Fluticasone-Salmeterol 113-14 MCG/ACT Aerosol Powder Breath Activated INHALE 1 PUFF INTO THE LUNGS TWICE A DAY FOR 30 DAYS Taking Azelastine HCl 137 MCG/SPRAY Solution SPRAY 2 PUFFS INTO EACH NOSTRIL TWICE A DAY 30 DAYS Not-Taking/PRNPROVENTIL HFA 90 mcg/inh aerosol 2 puff(s) inhaled 4 times a day AEROCHAMBER MDI SPACER N/A N/A user with mdi inhalers by mouth q4-6 hours PRN Fexofenadine HCl 180 MG Tablet 1 tablet Swallow whole with water; do not take with fruit juices. Orally Once a day Orphenadrine Citrate 30 MG/ML Solution 2 mL Injection every 12 hrs Magnesium Glycinate 100 MG Capsule as directed Orally Fexofenadine HCl 180 MG Tablet 1 tab(s) orally once a day Not-Taking/PRN PROVENTIL HFA 90 mcg/inh aerosol 2 puff(s) inhaled 4 times a day Not-Taking/PRN AEROCHAMBER MDI SPACER N/A N/A user with mdi inhalers by mouth q4-6 hours PRN Not-Taking/PRN Fexofenadine HCl 180 MG Tablet 1 tablet Swallow whole with water; do not take with fruit juices. Orally Once a day Not-Taking/PRN Orphenadrine Citrate 30 MG/ML Solution 2 mL Injection every 12 hrs Not-Taking/PRN Magnesium Glycinate 100 MG Capsule as directed Orally Not-Taking/PRN Fexofenadine HCl 180 MG Tablet 1 tab(s) orally once a day Objective: * Vitals: Assessment: * Assessment: 1. A llergic rhinitis due to pollen - J30.1 (Primary) 2 . O ther allergic rhinitis - J30.89 3 . A llergic rhinitis due to animal (cat) (dog) hair and dander - J30.81 4 . O ther chronic allergic conjunctivitis - H10.45 Plan: * Treatment: * Procedure Codes: 9 5117 IMMUNOTHERAPY INJECTIONS * Preventive Medicine: Counseling: E xercise A [...] Information: * Visit Code: * Procedure Codes: 14207 IMMUNOTHERAPY INJECTIONS. * Electronically signed by Ginna Jones PA-C, [facility] CARE CORPORATIONIsha on 07/10/2025 at 12:10 PM CDT Sign off status: Completed true * Provider: Lana Rutherford MD Date: Generated for Claire cox/Rosie/Jono on: 03:23 PM CDT History and Physical Notes * [...]
--- OUTSIDE RECORDS SUMMARY | 2025-07-10 15:22 | XMS_ITS | Encounter Summary ---
Author Organization [facility] Address [address] [place] [address] Care Team Providers Care Sports Photographer Name Role Phone Dalton Tolliver MD Primary Care Provider Encounter Details Date Type Department Care Team (Late st Contact Info) Description 07/06/2025 Results Follow-Up [facility] [address] [id number] Dalton Tolliver MD [address] [place] [id number] Iron profile w/ IBC, Ferritin, Lipid panel Social History Tobacco Use Types Packs/Day Years Used Date Smoking Tobacco: Never Smokeless Tobacco: Never AUDIT-C Answer Date Recorded Q1: How often do you have a drink containing alc ohol? Monthly or less 02/14/2024 Q2: How many drinks containi ng alcohol do you have on a typical day when you are drinking? 1 or 2 02/14/2024 Q3: How often do you have si x or more drinks on one occasion? 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 Would consider increasing iron supplement to 5x per week or daily. Ferritin was normal. Lipid panel looks great. Lead level was not drawn in correct tube, so will have to be reordered and redrawn. documented in this encounter Plan of Treatment Not on file documented as of this encounter Visit Diagnoses Not on filedocumented in this encounter Care Teams Sports Photographer Relationship Specialty Start Date End Date Dalton Tolliver MD PCP - General Endocrinology Diabetes & Metabolism 06/07/24 documented as of this encounter
--- OUTSIDE RECORDS SUMMARY | 2025-07-10 15:22 | XMS_ITS | Encounter Summary ---
Author Organization [facility] Address [address] [place] [address] Care Team Providers Care Template Cutter Name Role Phone Dalton Tolliver MD Primary Care Provider Encounter Details Date Type Department Care Team (Late st Contact Info) Description 07/03/2025 Telephone [facility] [address] [facility] [address] [place] [address] Dalton Tolliver MD [address] [facility] [address] [place] [address] Social History Tobacco Use Types Packs/Day Years [...] on file Legal Sex Female 6:44 PM [employer]OL [employer] Gender Identity Female 10/21/2022 7:37 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 * Telephone Encounter - Tracy Elizabeth CMA - 07/03/2025 3:56 PM CDT [facility] service called The lead blood test is cancelled it was received in wrong tube It needs to be in [place] tube with purple label documented in this encounter Plan of Treatment Not on file documented as of this encounter Visit Diagnoses Not on filedocumented in this encounter Care Teams Template Cutter Relationship Specialty Start Date End Date Dalton Tolliver MD PCP - General Endocrinology Diabetes & Metabolism 06/07/24 documented as of this encounter
--- OUTSIDE RECORDS SUMMARY | 2025-07-10 15:23 | XMS_ITS | Patient Health Record ---
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 Role Phone Norman LEWIS, Gurjit Primary Care Provider Unavailab Elisha Hernandez Unavailable [phone] Amanuel Rutherford Unavailable [phone] Elodia Nichols Unavailable [phone] Allergies Allergen (clinical drug ingredient) Drug/Non Drug Allergy documented on EMR Reaction Allergy Type Onset Date Status erythromycin Erythromycin vomiting Drug Allergy Active methylprednisolone methylPREDNISolone other reaction Drug Allergy Active Results Component Value Reference Range Notes -Immunoglobulins A/E/G/M, Se rum Reviewed date:04/05/2025 02:49:28 PM Interpretation:Abnormal Performing Lab:[facility], [address] [place] [id number], Phone - [phone], Director - PhDRobin Notes/Report: Immunoglobulin G, Qn, Serum [phone] mg/d L Immunoglobulin A, Qn, Serum 178 87-352 mg/dL Immunoglobulin M, Qn, Serum 251 26-217 mg/dL Immunoglobulin E, Total 26 6-495 IU/mL -Pneumococcal Ab (23 Serotyp e) Reviewed date:04/07/2025 02:35:56 PM Interpretation:Abnormal Performing Lab:[facility], [address], [facility] [address], [place], [place] [id number], Phone - [phone], Director - PhDCade Notes/Report: Pneumo Ab Type 1* 0.2 >1.3 ug/mL Pneumo Ab Type 3* 0.1 >1.3 ug/mL Pneumo Ab Type 4* 0.3 >1.3 ug/mL Pneumo Ab Type 8* 1.1 >1.3 ug/mL Pneumo Ab Type 9 (9N)* 1.5 >1.3 ug/mL Pneumo Ab Type 12 (12F)* 0.1 >1.3 ug/mL Pneumo Ab Type 14* 2.9 >1.3 ug/mL Pneumo Ab Type 17 (17F)* 1.9 >1.3 ug/mL Pneumo Ab Type 19 (19F)* 1.7 >1.3 ug/mL Pneumo Ab Type 2* 2.0 >1.3 ug/mL Pneumo Ab Type 20* 0.7 >1.3 ug/mL Pneumo Ab Type 22 (22F)* 2.8 >1.3 ug/mL Pneumo Ab Type 23 (23F)* 4.8 >1.3 ug/mL Pneumo Ab Type 26 (6B)* 0.3 >1.3 ug/mL Pneumo Ab Type 34 (10A)* 5.8 >1.3 ug/mL Pneumo Ab Type 43 (11A)* 1.0 >1.3 ug/mL Pneumo Ab Type 5* 0.2 >1.3 ug/mL Pneumo Ab Type 51 (7F)* <0.1 >1.3 ug/mL Pneumo Ab Type 54 (15B)* 6.3 >1.3 ug/mL Pneumo Ab Type 56 (18C)* 2.3 >1.3 ug/mL Pneumo Ab Type 57 (19A)* 0.9 >1.3 ug/mL Pneumo Ab Type 68 (9V)* 2.7 >1.3 ug/mL Pneumo Ab Type 70 (33F)* 4.3 >1.3 ug/mL *This test was developed and its performance characteristics determined by [employer]. It has not been cleared or approved by the U.S. Food and Drug Administration. FLAG Interpretation: A = Abnormal, H = High, L = Low -Tetanus/Diphtheria Ab Reviewed date:03/24/2025 09:18:56 AM Interpretation:Normal Performing Lab:[facility], [address] [id number], Phone - [phone], Director - Ag Notes/Report: Tetanus Antitoxoid IgG Ab 0.95 <0.10 IU/mL Interpretation: Non-Protective <0.10 Protective >=0.10 Results for this test are for research purposes only by the assay's equipment maintenance technician. The performance characteristics of this product have not been established. Results should not be used as a diagnostic procedure without confirmation of the diagnosis by another medically established diagnostic product or procedure. Diphtheria Antitoxoid Ab 0.13 <0.10 IU/mL Interpretation: Non-Protective <0.10 Protective >=0.10 . For research use only. -Haemophilus influenzae B Ig G Reviewed date:04/07/2025 02:36:07 PM Interpretation:Normal [facility]forming [facility], [address] [place] [id number], Phone - [phone], Director - Seda Notes/Report: Haemophilus influenzae B IgG 0.84 NOTE: An anti-Hib level of 0.15 ug/mL is generally accepted as the minimum level for protection. Optimal protection post-vaccination requires a level greater than 1.00 ug/mL. Spirometry Reviewed date:10/31/2024 12:57:20 PM Interpretation:Normal Performing Lab: Notes/Report: Normal SpiroPreBronchodilator_FVC 3.25 SpiroPostBronchodilator_FEF25_75 0 SpiroPreBronchodilator_FEF25_75 4.39 SpiroPreBronchodilator_FEV1 3 SpiroPrecentPredictionPost_F EF25_ 75 0 SpiroPrecentPredictionPost_FEV1 0 SpiroPrecentPredictionPost_F EV1_O VER_FVC 0 SpiroPrecentPredictionPost_FVC 0 SpiroPrecentPredictionPre_FE F25_7 5 150.9 SpiroPrecentPredictionPre_FEV1 102.7 SpiroPrecentPredictionPre_FE V1_OV ER_FVC 116.8 SpiroPrecentPredictionPre_FVC 89.3 SpiroPredicted_FEF25_75 2.91 SpiroPreBronchodilator_FEV1_ OVER_ FVC 92.39 SpiroPreBronchodilator_PEF 5.69 SpiroPostBronchodilator_FVC 0 SpiroPostBronchodilator_FEV1 0 SpiroPostBronchodilator_FEV1 _OVER _FVC 0 SpiroPostBronchodilator_PEF 0 SpiroPredicted_FVC 3.64 SpiroPredicted_FEV1 2.92 SpiroPredicted_FEV1_OVER_FVC 79.1 SpiroPredicted_PEF 6.3 Reason For Referral No Information Medications Medication SIG (Take, Route, Frequency, Duration) Notes Start Date End Date Status ZyrTEC 10mg 1 tablet PO Qday A ctive Singulair 10 MG 1 tab(s) orally once a day Active Centrum Silver - as directed Orally Active Ibuprofen 800 MG 1 tablet with food or milk as needed Orally Three times a day Active Xhance 93 MCG/ACT 2 sprays (1 spray in each nostril) Nasally Twice a day Active AEROCHAMBER MDI SPACER N/A user with mdi inhalers by mouth q4-6 hours PRN; Duration: 30 days Not-Taking ZyrTEC Allergy 10 MG 1 tablet PO Qday Active Garlic 2000 MG as directed Orally Active Krill Oil 1000 MG as directed Orally Active Turmeric 400 MG as directed Orally Active PROVENTIL HFA 90 mcg/inh 2 puff(s) inhal ed 4 times a day; Duration: 30 days Not-Taking Azelastine HCl 137 MCG/SPRAY SPRAY 2 PUF FS INTO EACH NOSTRIL TWICE A DAY 30 DAYS; Duration: 90 Active Fexofenadine HCl 180 MG 1 tab(s) orally once a day Not-Taking AeroChamber MV - as directed; Duration: 30 days Any adult spacer Active Albuterol Sulfate HFA 108 (90 Base) MCG/ACT 2 puffs as needed Inhalation every 4 hrs; Duration: 30 days Active FLONASE 50 mcg/inh 2 spray(s) intranasally once a day; Duration: 30 day(s) Active Flonase Allergy Relief 50 MCG/ACT 2 spray(s) intranasally once a day; Duration: 30 day(s) Active ZYRTEC 10mg 1 tablet PO Qday A ctive NASAL WASHES N/A as directed intranasally as needed; Duration: 30 Active EPINEPHrine 0.3 MG/0.3ML as directed Injection as directed; Duration: 30 days 07/04/2024 Active SINGULAIR 10 mg 1 tab(s) orally once a day Active Proventil HFA 108 (90 Base) MCG/ACT 2 puff(s) inhaled 4 times a day; Duration: 30 day(s) Active Vitamin D3 125 MCG (5000 UT) 1 cap(s) or ally once a day; Duration: 30 day(s) Active Fluticasone-Salmeterol 113-14 MCG/ACT 1 puff Inhalation Twice a day; Duration: 30 days Active Magnesium Glycinate 100 MG as directed Orally Not-Taking SIT (Traditional) variable - see record per schedule subcutaneous per schedule; Duration: 999 days Active Orphenadrine Citrate 30 MG/ML 2 mL Injection every 12 hrs Not-Taking Ipratropium [place] 0.06 % 2 sprays in e ach nostril Nasally Two times a day; Duration: 30 days Active Fexofenadine HCl 180 MG 1 tablet Swallow whole with water; do not take with fruit juices. Orally Once a day Not-Taking FEXOFENADINE 180 mg 1 tab(s) orally once a day Active Fluticasone-Salmeterol 113-14 MCG/ACT INHALE 1 PUFF INTO THE LUNGS TWICE A DAY FOR 30 DAYS; Duration: 30 Active hydroCHLOROthiazide 25 MG 1 tab(s) orall y once a day; Duration: 30 day(s) Active Losartan Potassium 25 MG 1 tab(s) orally once a day; Duration: 30 day(s) Active Immunizations Vaccine Route Administration Date Status Comme nts Allergy Immunotherapy Weekly Unknown 11/09/1997 Administered Portal Informati on NOC Pneumovax 23 Unknown 09/11/2008 Administered Portal Information Influenza Unknown 09/11/2008 Administered Portal Infor mation Pneumovax 23 Unknown 10/21/2019 Administered NOC Fluzone Quadrivalent Unknown 09/17/2020 Refused Covid 19 (Pfizer) Unknown 04/28/2021 Administered Covid 19 (Pfizer) Unknown 05/20/2021 Administered Social History Tobacco Use: Social History Observation Description Date Details (start date - stop date) Never Smoker NA - NA Sex Assigned At : Social History Observation Description Sex Assigned At Female Tobacco Control (Standard) Question Answer Notes Tobacco use: Nonsmoker Problems Problem Type SNOMED Code ICD Code Onset Dates Problem Status W/U Status Risk Notes Problem Vitamin D deficiency (03910106) Vitamin D deficiency, unspecified (E55.9) Active confirmed Problem Chronic allergic conjunctivitis (57658419) Other chronic allergic conjunctivitis (H10.45) Active confirmed Problem Acute upper respiratory infection (70271414) Acute upper respiratory infection, unspecified (J06.9) Active confirmed Problem Allergic rhinitis caused by pollen (disorder) (87007619) Allergic rhinitis due to pollen (J30.1) Active confirmed Problem Allergic rhinitis (57236368) Other allergic rhinitis (J30.89) Active confirmed Problem Allergic rhinitis caused by animal hair and dander (135339514147136) Allergic rhinitis due to animal (cat) (dog) hair and dander (J30.81) Active confirmed Problem Cough (51164610) Cough (R05) Active confirmed Problem Chronic sinusitis (49613359) Other chronic sinusitis (J32.8) Active confirmed Problem Essential hypertension (55144627) Essential (primary) hypertension (I10) Active confirmed Problem Chronic cough (71081897) Chronic cough (R05.3) Active confirmed Vital Signs Oximetry 96 % 12/19/2024 Blood pressure diastolic 82 mm Hg 12/19/2024 Height 68 in 12/19/2024 Blood pressure systolic 158 mm Hg 12/19/2024 Weight 312.8 lbs 12/19/2024 BMI 47.56 kg/m2 12/19/2024 Encounters Encounter Location Date Provider Diagnosis [facility] [address] [place] [phone] 11/21/2024 Amanuel Rutherford Allergic rhinitis du e to pollen J30.1 ; Other allergic rhinitis J30.89 ; Allergic rhinitis due to animal (cat) (dog) hair and dander J30.81 and Other chronic allergic conjunctivitis H10.[address] [phone] 11/07/2024 Amanuel Rutherford Allergic rhinitis du e to pollen J30.1 ; Other allergic rhinitis J30.89 ; Allergic rhinitis due to animal (cat) (dog) hair and dander J30.81 and Other chronic allergic conjunctivitis H10.[address] [phone] 10/10/2024 Amanuel Rutherford Allergic rhinitis du e to pollen J30.1 ; Other allergic rhinitis J30.89 ; Allergic rhinitis due to animal (cat) (dog) hair and dander J30.81 and Other chronic allergic conjunctivitis H10.45 [facility] [address] [place] [address] [employer] [address] [phone] 10/03/2024 Amanuel Krish Allergic rhinitis du e to pollen J30.1 ; Other allergic rhinitis J30.89 ; Allergic rhinitis due to animal (cat) (dog) hair and dander J30.81 and Other chronic allergic conjunctivitis H10.45 [facility] [address] [place] [address] [employer] [address] [address] 07/10/2025 Amanuel Krish Allergic rhinitis du e to pollen J30.1 ; Other allergic rhinitis J30.89 ; Allergic rhinitis due to animal (cat) (dog) hair and dander J30.81 and Other chronic allergic conjunctivitis H10.45 [facility] [address] [place] [address] [employer] [address] [address] 06/12/2025 Amanuelatul Rutherford Allergic rhinitis du e to pollen J30.1 ; Other allergic rhinitis J30.89 ; Allergic rhinitis due to animal (cat) (dog) hair and dander J30.81 and Other chronic allergic conjunctivitis H10.45 [facility] [address] [place] [address] [employer] [address] [address] 05/15/2025 Amanuel Rutherford Allergic rhinitis du e to pollen J30.1 ; Other allergic rhinitis J30.89 ; Allergic rhinitis due to animal (cat) (dog) hair and dander J30.81 and Other chronic allergic conjunctivitis H10.45 [facility] [address] [place] [phone] 04/17/2025 Amanuel Rutherford Allergic rhinitis du e to pollen J30.1 ; Other allergic rhinitis J30.89 ; Allergic rhinitis due to animal (cat) (dog) hair and dander J30.81 and Other chronic allergic conjunctivitis H10.45 [facility] [address] [place] [address] [employer] [address] [phone] 03/20/2025 Amanuel Rutherford Allergic rhinitis du e to pollen J30.1 ; Other allergic rhinitis J30.89 ; Allergic rhinitis due to animal (cat) (dog) hair and dander J30.81 and Other chronic allergic conjunctivitis H10.45 [facility] [address] [place], [place] [address] [address] [address] 02/20/2025 Amanuel Rutherford Allergic rhinitis du e to pollen J30.1 ; Other allergic rhinitis J30.89 ; Allergic rhinitis due to animal (cat) (dog) hair and dander J30.81 and Other chronic allergic conjunctivitis H10.45 [facility] [address] [place] [phone] 01/23/2025 Amanuel Rutherford Allergic rhinitis du e to pollen J30.1 ; Other allergic rhinitis J30.89 ; Allergic rhinitis due to animal (cat) (dog) hair and dander J30.81 and Other chronic allergic conjunctivitis H10.45 [facility] [address] [place] [phone] 01/16/2025 Amanuel Rutherford Allergic rhinitis du e to pollen J30.1 ; Other allergic rhinitis J30.89 ; Allergic rhinitis due to animal (cat) (dog) hair and dander J30.81 and Other chronic allergic conjunctivitis H10.45 [facility] [address] [place] [phone] 01/06/2025 Amanuel Rutherford Allergic rhinitis du e to pollen J30.1 ; Other allergic rhinitis J30.89 ; Allergic rhinitis due to animal (cat) (dog) hair and dander J30.81 and Other chronic allergic conjunctivitis H10.45 [facility] [address] [place] [phone] 08/07/2024 Elodia Nichols Allergic rhinitis du e to pollen J30.1 ; Allergic rhinitis due to animal (cat) (dog) hair and dander J30.81 ; Other allergic rhinitis J30.89 ; Other chronic sinusitis J32.8 ; Other chronic allergic conjunctivitis H10.45 ; Cough, unspecified R05.9 ; Vitamin D deficiency, unspecified E55.9 and Essential (primary) hypertension I10 [facility] [address] [place] [phone] 08/01/2024 Amanuel Rutherford Allergic rhinitis du e to pollen J30.1 ; Allergic rhinitis due to animal (cat) (dog) hair and dander J30.81 ; Other allergic rhinitis J30.89 and Other chronic allergic conjunctivitis H10.45 [facility] [address] [place] [address] [employer] [address] [address] 12/19/2024 Elodia Nichols Allergic rhinitis du e to pollen J30.1 ; Allergic rhinitis due to animal (cat) (dog) hair and dander J30.81 ; Other allergic rhinitis J30.89 ; Other chronic allergic conjunctivitis H10.45 ; Other chronic sinusitis J32.8 ; Acute upper respiratory infection, unspecified J06.9 ; Cough, unspecified R05.9 ; Vitamin D deficiency, unspecified E55.9 and Essential (primary) hypertension I10 [facility] [address] [place] [phone] 09/19/2024 Amanuel Rutherford Allergic rhinitis du e to pollen J30.1 ; Allergic rhinitis due to animal (cat) (dog) hair and dander J30.81 ; Other allergic rhinitis J30.89 and Other chronic allergic conjunctivitis H10.45 [facility] [address] [place] [phone] 08/15/2024 Amanuel Rutherford Allergic rhinitis du e to pollen J30.1 ; Allergic rhinitis due to animal (cat) (dog) hair and dander J30.81 ; Other allergic rhinitis J30.89 and Other chronic allergic conjunctivitis H10.45 [facility] [address] [place] [phone] 09/09/2024 Amanuel Rutherford Allergic rhinitis du e to pollen J30.1 ; Allergic rhinitis due to animal (cat) (dog) hair and dander J30.81 ; Other allergic rhinitis J30.89 and Other chronic allergic conjunctivitis H10.45 [facility] [address] [place] [phone] 08/29/2024 Amanuel Rutherford Allergic rhinitis du e to pollen J30.1 ; Allergic rhinitis due to animal (cat) (dog) hair and dander J30.81 ; Other allergic rhinitis J30.89 and Other chronic allergic conjunctivitis H10.45 [facility] [address] [place] [address] [employer] [address] [address] 12/05/2024 Amanuel Rutherford Allergic rhinitis du e to pollen J30.1 ; Other allergic rhinitis J30.89 ; Allergic rhinitis due to animal (cat) (dog) hair and dander J30.81 and Other chronic allergic conjunctivitis H10.45 [facility] [address] [place] [phone] 10/17/2024 Elodia Nichols Allergic rhinitis du e to pollen J30.1 ; Allergic rhinitis due to animal (cat) (dog) hair and dander J30.81 ; Other allergic rhinitis J30.89 ; Other chronic allergic conjunctivitis H10.45 ; Other chronic sinusitis J32.8 ; Cough, unspecified R05.9 ; Vitamin D deficiency, unspecified E55.9 and Essential (primary) hypertension I10 [address] [address] 09/26/2024 Amanuel Rutherford Allergic rhinitis du e to pollen J30.1 ; Allergic rhinitis due to animal (cat) (dog) hair and dander J30.81 ; Other allergic rhinitis J30.89 and Other chronic allergic conjunctivitis H10.[address] [address] 08/22/2024 Amanuel Rutherford Allergic rhinitis du e to pollen J30.1 ; Allergic rhinitis due to animal (cat) (dog) hair and dander J30.81 ; Other allergic rhinitis J30.89 and Other chronic allergic conjunctivitis H10.[address] [address] 10/31/2024 Elodia Nichols Allergic rhinitis du e to pollen J30.1 ; Acute upper respiratory infection, unspecified J06.9 ; Allergic rhinitis due to animal (cat) (dog) hair and dander J30.81 ; Other allergic rhinitis J30.89 ; Other chronic allergic conjunctivitis H10.45 ; Other chronic sinusitis J32.8 ; Cough, unspecified R05.9 ; Vitamin D deficiency, unspecified E55.9 and Essential (primary) hypertension I10 [facility] [address] [place] [address] 03/26/2025 Elisha Jones [facility] [address] [place] [address] 10/31/2024 Elisha Jones Assessments Encounter Date Diagnosis (ICD Code) Assessment Notes Treatment Notes Treatment Clinical Notes Section Notes 08/01/2024 Allergic rhinitis due to pollen (ICD-10 - J30.1) 08/07/2024 Allergic rhinitis due to pollen (ICD-10 - J30.1) Colleen clearly suffers from atopic disease based upon our skin testing and history. Accordingly, we have encouraged his medication regimen, discussed nasal washes and allergy-specific avoidance measures. We also discussed adjunctive therapies including subcutaneous, specific allergen immunotherapy as relates to the treatment and prevention of atopic disease. After considering the risks, benefits and alternatives to this care, we continued treatment today. Risks: bleeding, infection, allergic reaction, anaphylaxis; Benefits: reduced need for medications, improved symptoms, disease modification. Alternatives: watch/wait, change medication regimen, improve allergy avoidance measures. - The procedure was tolerated without large local or systemic symptoms concerning for anaphylaxis. - Continue medications as listed above. Continue premedication with Zyrtec. - AIE on hand. Patient was instructed that epinephrine needs to be carried to each immunotherapy visit and should be carried 2 hrs after dosing. - Follow-up in 1 week for dosing and 7 weeks for E&M 08/07/2024 Allergic rhinitis due to animal (cat) (dog) hair and dander (ICD-10 - J30.81) Follow allergen avoidance, meds and continue SCIT as an adjunctive treatment to current regimen 08/15/2024 Allergic rhinitis due to pollen (ICD-10 - J30.1) 08/22/2024 Allergic rhinitis due to pollen (ICD-10 - J30.1) 08/29/2024 Allergic rhinitis due to pollen (ICD-10 - J30.1) 09/09/2024 Allergic rhinitis due to pollen (ICD-10 - J30.1) 09/19/2024 Allergic rhinitis due to pollen (ICD-10 - J30.1) 09/26/2024 Allergic rhinitis due to pollen (ICD-10 - J30.1) 10/03/2024 Allergic rhinitis due to pollen (ICD-10 - J30.1) 10/03/2024 Other allergic rhinitis (ICD-10 - J30.89) 10/10/2024 Allergic rhinitis due to pollen (ICD-10 - J30.1) 10/10/2024 Other allergic rhinitis (ICD-10 - J30.89) 10/17/2024 Allergic rhinitis due to pollen (ICD-10 - J30.1) Colleen clearly suffers from atopic disease based upon our skin testing and history. Accordingly, we have encouraged his medication regimen, discussed nasal washes and allergy-specific avoidance measures. We also discussed adjunctive therapies including subcutaneous, specific allergen immunotherapy as relates to the treatment and prevention of atopic disease. After considering the risks, benefits and alternatives to this care, we continued treatment today. Risks: bleeding, infection, allergic reaction, anaphylaxis; Benefits: reduced need for medications, improved symptoms, disease modification. Alternatives: watch/wait, change medication regimen, improve allergy avoidance measures. 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 She tolerated last weeks (Week 10) dosing without issues. Encouraged ice, topical steroids and additional antihistamines for further LLR. She also needs to notify office. Recommend triple premedication for futher LLR, - The procedure was tolerated without large local or systemic symptoms concerning for anaphylaxis. - Continue medications as listed above. Continue premedication with Zyrtec. - AIE on hand. Patient was instructed that epinephrine needs to be carried to each immunotherapy visit and should be carried 2 hrs after dosing. - Follow-up in 1 week for dosing 10/17/2024 Allergic rhinitis due to animal (cat) (dog) hair and dander (ICD-10 - J30.81) Follow allergen avoidance, meds and continue SCIT as an adjunctive treatment to current regimen 10/31/2024 Acute upper respiratory infection, unspecified (ICD-10 - J06.9) Renee reports fever, cough, chills that began when she tested positive for Covid on 10/19/24. Cough started changing on 10/24/24. She was evaluated by [facility] in [place], tested positive for influenza A on 10/25/24, given Tamiflu for 5 days, which she completed. She is here for lingering cough and blew nose with yellow drainage. She reports sinus headache x 2 days. She is concerned she now has pneumonia and is interested in chest xray. She has not been evaluated by PCP. She has not attempted albuterol for cough now other OTC remedies. She reports prior strep throat infection, treated with cephalexin 500mg x 10 days, completed on 10/15/24. Previously treated with Augmentin in 08/2024. - Dry cough noted throughout visit. Lungs CTA. No evidence of wheezing, crackles. - Spirometry done today and showed normal FVC, FEV1, FEV%. FVL shows blunted PEFR, otherwise normal. Normal lung age. - Given symptoms have not been present for longer than 2 weeks and have improved despite lingering cough, antibiotics are not warranted. Again, discussed she tested postive for Covid-19 less than 2 weeks ago and influenza A 1 week ago. Discussed that this is likely a post-viral cough that can last for several weeks. She also has not attempted albuterol or other OTC remedies. Encouraged to use albuterol for cough. - Will obtain Chest Xray at this time. - Will trial Advair HFA 1 inhalation AM and PM x 1 month to help with cough. Patient reports oral corticosteroids made her feel jittery and increased her HR. Again, lungs clear on exam so do not feel OCS are warranted. Denies fever or other constituational symptoms. - Encouraged to follow-up with PCP or seek emergent evaluation for worsening or persistent symptoms. 10/31/2024 Allergic rhinitis due to pollen (ICD-10 - J30.1) Colleen clearly suffers from atopic disease based upon our skin testing and history. Accordingly, we have encouraged his medication regimen, discussed nasal washes and allergy-specific avoidance measures. We also discussed adjunctive therapies including subcutaneous, specific allergen immunotherapy as relates to the treatment and prevention of atopic disease. After considering the risks, benefits and alternatives to this care, we continued treatment today. Risks: bleeding, infection, allergic reaction, anaphylaxis; Benefits: reduced need for medications, improved symptoms, disease modification. Alternatives: watch/wait, change medication regimen, improve allergy avoidance measures. 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 She tolerated last weeks (Week 10) dosing without issues. Encouraged ice, topical steroids and additional antihistamines for further LLR. She also needs to notify office. Recommend triple premedication for futher LLR. - Dosing held today given illness - see above. Instructed she cannot receive SCIT for any lower airway symptoms. - Continue medications as listed above. Continue premedication with Zyrtec. - AIE on hand. Patient was instructed that epinephrine needs to be carried to each immunotherapy visit and should be carried 2 hrs after dosing. - Follow-up in 1 week for dosing 11/07/2024 Allergic rhinitis due to pollen (ICD-10 - J30.1) 11/07/2024 Other allergic rhinitis (ICD-10 - J30.89) 11/21/2024 Allergic rhinitis due to pollen (ICD-10 - J30.1) 11/21/2024 Other allergic rhinitis (ICD-10 - J30.89) 12/05/2024 Allergic rhinitis due to pollen (ICD-10 - J30.1) 12/05/2024 Other allergic rhinitis (ICD-10 - J30.89) 12/19/2024 Allergic rhinitis due to pollen (ICD-10 - J30.1) Colleen clearly suffers from atopic disease based upon our skin testing and history. Accordingly, we have encouraged his medication regimen, discussed nasal washes and allergy-specific avoidance measures. We also discussed adjunctive therapies including subcutaneous, specific allergen immunotherapy as relates to the treatment and prevention of atopic disease. After considering the risks, benefits and alternatives to this care, we continued treatment today. Risks: bleeding, infection, allergic reaction, anaphylaxis; Benefits: reduced need for medications, improved symptoms, disease modification. Alternatives: watch/wait, change medication regimen, improve allergy avoidance measures. 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 She tolerated last weeks (Week 10) dosing without issues. Encouraged ice, topical steroids and additional antihistamines for further LLR. No interval issues. She also needs to notify office. Recommend triple premedication for futher LLR. - Dosing tolerated today without local or systemic reaction. - Continue medications as listed above. Continue premedication with Zyrtec. Refills sent for Azelastine. - AIE on hand. Patient was instructed that epinephrine needs to be carried to each immunotherapy visit and should be carried 2 hrs after dosing. - Follow-up in 4 weeks for dosing 12/19/2024 Allergic rhinitis due to animal (cat) (dog) hair and dander (ICD-10 - J30.81) Follow allergen avoidance, meds and continue SCIT as an adjunctive treatment to current regimen 01/06/2025 Allergic rhinitis due to pollen (ICD-10 - J30.1) 01/06/2025 Other allergic rhinitis (ICD-10 - J30.89) 01/16/2025 Allergic rhinitis due to pollen (ICD-10 - J30.1) 01/16/2025 Other allergic rhinitis (ICD-10 - J30.89) 01/23/2025 Allergic rhinitis due to pollen (ICD-10 - J30.1) 01/23/2025 Other allergic rhinitis (ICD-10 - J30.89) 02/20/2025 Allergic rhinitis due to pollen (ICD-10 - J30.1) 02/20/2025 Other allergic rhinitis (ICD-10 - J30.89) 03/20/2025 Allergic rhinitis due to pollen (ICD-10 - J30.1) 03/20/2025 Other allergic rhinitis (ICD-10 - J30.89) 04/17/2025 Allergic rhinitis due to pollen (ICD-10 - J30.1) 04/17/2025 Other allergic rhinitis (ICD-10 - J30.89) 05/15/2025 Allergic rhinitis due to pollen (ICD-10 - J30.1) 05/15/2025 Other allergic rhinitis (ICD-10 - J30.89) 06/12/2025 Allergic rhinitis due to pollen (ICD-10 - J30.1) 06/12/2025 Other allergic rhinitis (ICD-10 - J30.89) 07/10/2025 Allergic rhinitis due to pollen (ICD-10 - J30.1) 07/10/2025 Other allergic rhinitis (ICD-10 - J30.89) 07/10/2025 Allergic rhinitis due to animal (cat) (dog) hair and dander (ICD-10 - J30.81) 06/12/2025 Allergic rhinitis due to animal (cat) (dog) hair and dander (ICD-10 - J30.81) 05/15/2025 Allergic rhinitis due to animal (cat) (dog) hair and dander (ICD-10 - J30.81) 04/17/2025 Allergic rhinitis due to animal (cat) (dog) hair and dander (ICD-10 - J30.81) 03/20/2025 Allergic rhinitis due to animal (cat) (dog) hair and dander (ICD-10 - J30.81) 02/20/2025 Allergic rhinitis due to animal (cat) (dog) hair and dander (ICD-10 - J30.81) 01/23/2025 Allergic rhinitis due to animal (cat) (dog) hair and dander (ICD-10 - J30.81) 01/16/2025 Allergic rhinitis due to animal (cat) (dog) hair and dander (ICD-10 - J30.81) 01/06/2025 Allergic rhinitis due to animal (cat) (dog) hair and dander (ICD-10 - J30.81) 12/19/2024 Other allergic rhinitis (ICD-10 - J30.89) Follow allergen avoidance, meds and continue SCIT as an adjunctive treatment to current regimen 12/05/2024 Allergic rhinitis due to animal (cat) (dog) hair and dander (ICD-10 - J30.81) 11/21/2024 Allergic rhinitis due to animal (cat) (dog) hair and dander (ICD-10 - J30.81) 11/07/2024 Allergic rhinitis due to animal (cat) (dog) hair and dander (ICD-10 - J30.81) 10/31/2024 Allergic rhinitis due to animal (cat) (dog) hair and dander (ICD-10 - J30.81) Follow allergen avoidance, meds and continue SCIT as an adjunctive treatment to current regimen 10/17/2024 Other allergic rhinitis (ICD-10 - J30.89) Follow allergen avoidance, meds and continue SCIT as an adjunctive treatment to current regimen 10/10/2024 Allergic rhinitis due to animal (cat) (dog) hair and dander (ICD-10 - J30.81) 10/03/2024 Allergic rhinitis due to animal (cat) (dog) hair and dander (ICD-10 - J30.81) 09/26/2024 Allergic rhinitis due to animal (cat) (dog) hair and dander (ICD-10 - J30.81) 09/19/2024 Allergic rhinitis due to animal (cat) (dog) hair and dander (ICD-10 - J30.81) 09/09/2024 Allergic rhinitis due to animal (cat) (dog) hair and dander (ICD-10 - J30.81) 08/29/2024 Allergic rhinitis due to animal (cat) (dog) hair and dander (ICD-10 - J30.81) 08/22/2024 Allergic rhinitis due to animal (cat) (dog) hair and dander (ICD-10 - J30.81) 08/15/2024 Allergic rhinitis due to animal (cat) (dog) hair and dander (ICD-10 - J30.81) 08/07/2024 Other allergic rhinitis (ICD-10 - J30.89) Follow allergen avoidance, meds and continue SCIT as an adjunctive treatment to current regimen 08/01/2024 Allergic rhinitis due to animal (cat) (dog) hair and dander (ICD-10 - J30.81) 08/01/2024 Other allergic rhinitis (ICD-10 - J30.89) 08/07/2024 Other chronic sinusitis (ICD-10 - J32.8) Prior PI work-up with borderline Pneumococcal protection, Pneumovax was obtained in Oct 2020, repeat titers never drawn. - Recheck of pneumococcal protection showed 15/23 and vitamin D WNL at 61.3. Recommended Prevnar 20 with repeat titers in 4-6 weeks. Patient would like to wait until she is cleared from OBGYN. - Colleen is now established with ENT, who told her she has a deviated septum. She recently saw a second opinion as well. - Continue XHANCE per ENT. - Continue to treat atopy as stated above 08/15/2024 Other allergic rhinitis (ICD-10 - J30.89) 08/22/2024 Other allergic rhinitis (ICD-10 - J30.89) 08/29/2024 Other allergic rhinitis (ICD-10 - J30.89) 09/09/2024 Other allergic rhinitis (ICD-10 - J30.89) 09/19/2024 Other allergic rhinitis (ICD-10 - J30.89) 09/26/2024 Other allergic rhinitis (ICD-10 - J30.89) 10/03/2024 Other chronic allergic conjunctivitis (ICD-10 - H10.45) 10/10/2024 Other chronic allergic conjunctivitis (ICD-10 - H10.45) 10/17/2024 Other chronic allergic conjunctivitis (ICD-10 - H10.45) Given ocular signs and symptoms I encouraged allergy avoidance measures and meds as above. If symptoms persist, consider adding additional medications including intraocular antihistamine/mast cell stabilizer, PRN and continue SCIT as an adjunctive measure 10/31/2024 Other allergic rhinitis (ICD-10 - J30.89) Follow allergen avoidance, meds and continue SCIT as an adjunctive treatment to current regimen 11/07/2024 Other chronic allergic conjunctivitis (ICD-10 - H10.45) 11/21/2024 Other chronic allergic conjunctivitis (ICD-10 - H10.45) 12/05/2024 Other chronic allergic conjunctivitis (ICD-10 - H10.45) 12/19/2024 Other chronic allergic conjunctivitis (ICD-10 - H10.45) Given ocular signs and symptoms I encouraged allergy avoidance measures and meds as above. If symptoms persist, consider adding additional medications including intraocular antihistamine/mast cell stabilizer, PRN and continue SCIT as an adjunctive measure 01/06/2025 Other chronic allergic conjunctivitis (ICD-10 - H10.45) 01/16/2025 Other chronic allergic conjunctivitis (ICD-10 - H10.45) 01/23/2025 Other chronic allergic conjunctivitis (ICD-10 - H10.45) 02/20/2025 Other chronic allergic conjunctivitis (ICD-10 - H10.45) 03/20/2025 Other chronic allergic conjunctivitis (ICD-10 - H10.45) 04/17/2025 Other chronic allergic conjunctivitis (ICD-10 - H10.45) 05/15/2025 Other chronic allergic conjunctivitis (ICD-10 - H10.45) 06/12/2025 Other chronic allergic conjunctivitis (ICD-10 - H10.45) 07/10/2025 Other chronic allergic conjunctivitis (ICD-10 - H10.45) 12/19/2024 Other chronic sinusitis (ICD-10 - J32.8) Prior PI work-up with borderline Pneumococcal protection, Pneumovax was obtained in Oct 2020, repeat titers never drawn. Recheck of pneumococcal protectionin 05/2024 showed 15/23 and vitamin D WNL at 61.3. Recommended Prevnar 20 with repeat titers in 4-6 weeks, but patient previosuly declined. Patient would like to wait until she is cleared from OBGYN. Today, reporting she is not yet cleared by OBGYN. Encouraged her to speak with OBGYN re: Prevnar 20. She reports sinus infection in 08/2024 and bilateral ear infection in 01/2024. Last OCS use in 03/2024 for gynecological procedure. Today, reporting interval sinus infection on 11/08/24, treated with Augmentin x 10 days. She has yet to receive Prevnar 20 which was previously recommended. - Prior visit, recommended obtaining modified PIDD workup at this time given recent infections, but patient declined at that time. Today, she is in agreement to obtain modified PIDD workup given continued infections. Labs ordered and printed orders given to patient. - Plan on boosters based on results. Of note, [id number] was recommended but declined. - Colleen is now established with ENT, who told her she has a deviated septum. She recently saw a second opinion as well. - Continue XHANCE per ENT. - Continue to treat atopy as stated above 10/31/2024 Other chronic allergic conjunctivitis (ICD-10 - H10.45) Given ocular signs and symptoms I encouraged allergy avoidance measures and meds as above. If symptoms persist, consider adding additional medications including intraocular antihistamine/mast cell stabilizer, PRN and continue SCIT as an adjunctive measure 10/17/2024 Other chronic sinusitis (ICD-10 - J32.8) Prior PI work-up with borderline Pneumococcal protection, Pneumovax was obtained in Oct 2020, repeat titers never drawn. Recheck of pneumococcal protectionin 05/2024 showed 15/23 and vitamin D WNL at 61.3. Recommended Prevnar 20 with repeat titers in 4-6 weeks. Patient would like to wait until she is cleared from OBGYN. Today, reporting she is not yet cleared by OBGYN. She reports sinus infection in 08/2024 and bilateral ear infection in 01/2024. Last OCS use in 03/2024 for gynecological procedure. - Recommended obtaining modified PIDD workup at this time given recent infections, but patient declined. Strongly urged her to consider obtainining. SHe would liek to follow-up in 2 months to assess status. - Colleen is now established with ENT, who told her she has a deviated septum. She recently saw a second opinion as well. - Continue XHANCE per ENT. - Continue to treat atopy as stated above 09/26/2024 Other chronic allergic conjunctivitis (ICD-10 - H10.45) 09/19/2024 Other chronic allergic conjunctivitis (ICD-10 - H10.45) 08/22/2024 Other chronic allergic conjunctivitis (ICD-10 - H10.45) 08/29/2024 Other chronic allergic conjunctivitis (ICD-10 - H10.45) 09/09/2024 Other chronic allergic conjunctivitis (ICD-10 - H10.45) 08/15/2024 Other chronic allergic conjunctivitis (ICD-10 - H10.45) 08/07/2024 Other chronic allergic conjunctivitis (ICD-10 - H10.45) Given ocular signs and symptoms I encouraged allergy avoidance measures and meds as above. If symptoms persist, consider adding additional medications including intraocular antihistamine/mast cell stabilizer, PRN and continue SCIT as an adjunctive measure 08/01/2024 Other chronic allergic conjunctivitis (ICD-10 - H10.45) 08/07/2024 Cough, unspecified (ICD-10 - R05.9) Probable multifactorial cough, likely driven by her atopic disease. Last spirometry in 2019 was performed and normal. There was some reversibility, with a 5% change in FEV1 but not diagnostic of RAD by ATS guidelines. - Colleen returns reporting minimal upper airway symptoms, feels occasional cough is due to PND. - Plan to obtain spirometry next visit - deferred today due to recent hysterectomy. - Continue MAGDA as-needed. Consider trial of ICS or ICS/LABA. - Follow-up in 4 weeks as above 10/17/2024 Cough, unspecified (ICD-10 - R05.9) Probable multifactorial cough, likely driven by her atopic disease. Last spirometry in 2019 was performed and normal. There was some reversibility, with a 5% change in FEV1 but not diagnostic of RAD by ATS guidelines. - Colleen returns reporting minimal upper airway symptoms, feels occasional cough is due to PND. - Plan to obtain spirometry next visit - again, declined today as she is not cleared from OBGYN. - Continue MAGDA as-needed. Consider trial of ICS or ICS/LABA. 10/31/2024 Other chronic sinusitis (ICD-10 - J32.8) Prior PI work-up with borderline Pneumococcal protection, Pneumovax was obtained in Oct 2020, repeat titers never drawn. Recheck of pneumococcal protectionin 05/2024 showed 15/23 and vitamin D WNL at 61.3. Recommended Prevnar 20 with repeat titers in 4-6 weeks, but patient previosuly declined. Patient would like to wait until she is cleared from OBGYN. Today, reporting she is not yet cleared by OBGYN. Encouraged her to speak with OBGYN re: Prevnar 20. She reports sinus infection in 08/2024 and bilateral ear infection in 01/2024. Last OCS use in 03/2024 for gynecological procedure. - Last visit, recommended obtaining modified PIDD workup at this time given recent infections, but patient declined. Strongly urged her to consider obtainining. She would like to follow-up in 2 months to assess status. - Colleen is now established with ENT, who told her she has a deviated septum. She recently saw a second opinion as well. - Continue XHANCE per ENT. - Continue to treat atopy as stated above 12/19/2024 Acute upper respiratory infection, unspecified (ICD-10 - J06.9) Resolved at this time. Urgent visit in 10/2024 for cough after Covid-19 diagnosis and influenza A on 10/25/24, given Tamiflu for 5 days. - Dry cough noted throughout visit. Lungs CTA. No evidence of wheezing, crackles. - Spirometry done last visit and showed normal FVC, FEV1, FEV%. FVL shows blunted PEFR, otherwise normal. Normal lung age. - Chest Xray obtained at last visit - WNL. - Advair HFA 1 inhalation AM and PM x 1 month to help with cough. Reports using for 1-2 weeks with minimal improvement. No lower airway symptoms today. ACT 25. - Patient reports she was upset that spirometry was done last visit as she feels it is noly used for patient's with asthma. We had a lengthy discussion regarding diagnostic criteria for assessing lung function, which patient felt could be determined with ausculatation alone. Discussed at length our protocol as patient was having severe coughing fits and has a history of inhaler use. Discussed if lung function was not stable, SCIT would need to held. Luckily, lung function was stable at that time as prior spirometry had not been obtained since 2019 and was declined by patient at prior office visits. - Discussed need for repeat spirometry if patient were to present again for urgent visit for lower airway symptoms, which includes cough. Or would need to obtain if albuterol use increases to more than 2 x per week. 10/31/2024 Cough, unspecified (ICD-10 - R05.9) Probable multifactorial cough, likely driven by her atopic disease. Last spirometry in 2019 was performed and normal. There was some reversibility, with a 5% change in FEV1 but not diagnostic of RAD by ATS guidelines. She has declined spireomtry at last 2 office visits. - Today, here for urgent visit for lingering cough since Covid-19 and influenza A diagnosis. See plan above. 12/19/2024 Cough, unspecified (ICD-10 - R05.9) Probable multifactorial cough, likely driven by her atopic disease. Last spirometry in 2019 was performed and normal. There was some reversibility, with a 5% change in FEV1 but not diagnostic of RAD by ATS guidelines. She had declined spirometry at last 2 office visits. - Spirometry done last visit and showed normal FVC, FEV1, FEV%. FVL shows blunted PEFR, otherwise normal. Normal lung age. - See above. 10/17/2024 Vitamin D deficiency, unspecified (ICD-10 - E55.9) Historically low. Obtained in 05/2024, 61.3. 08/07/2024 Vitamin D deficiency, unspecified (ICD-10 - E55.9) Rule out for immune work-up as above, historically with low vitamin D. Recent check WNL, 61.3. 08/07/2024 Essential (primary) hypertension (ICD-10 - I10) Elevated BP w/o signs of urgency or emergency 10/17/2024 Essential (primary) hypertension (ICD-10 - I10) Elevated BP w/o signs of urgency or emergency 10/31/2024 Vitamin D deficiency, unspecified (ICD-10 - E55.9) Historically low. Obtained in 05/2024, 61.3. 12/19/2024 Vitamin D deficiency, unspecified (ICD-10 - E55.9) Historically low. Obtained in 05/2024, 61.3. 10/31/2024 Essential (primary) hypertension (ICD-10 - I10) Elevated BP w/o signs of urgency or emergency 12/19/2024 Essential (primary) hypertension (ICD-10 - I10) Elevated BP w/o signs of urgency or emergency. Encouarged serial checks and to follow-up with PCP. 08/07/2024 Other 09/09/2024 Other 09/19/2024 Other 12/19/2024 Other 08/22/2024 Other 09/26/2024 Other 08/29/2024 Other 10/17/2024 Other 08/15/2024 Other 10/31/2024 Other Plan Of Treatment Pending Test Test Name Order Date X ray : Chest 10/31/2024 -Vitamin D, 25-Hydroxy 06/17/2021 -Pneumococcal Ab (23 Serotype) 0 -Pneumococcal Ab (23 Serotype) 1 Next Appt Details Provider Name:Amanuel Waller Krish , 08/04/2025 08:30:00 AM, [address] [place], [address], [address], Provider Name:Amanuel Waller Krish , 09/01/2025 08:30:00 AM, [address] [place], [address], [address], Provider Name:Amanuel Waller Krish , 09/29/2025 08:30:00 AM, [address] [place], [address], [address], Insurance Providers Payer Name Payer Address Payer Phone Subscriber Number Group Number Insured Name Patient Relationship to Insured Coverage Start Date Coverage End Date [facility] [id number] [place] [address] [phone] [id number] Renee France Self - patient is the insured 2 Medical (General) History Medical History History ICD Code Essential (primary) hypertension Surgical History Surgery Date(Month/Year) ankle surgery 01/09/1985 Lasik 03/2024 Partial Hysterectomy 07/15/24 Pelvic Hematoma removal 07/19/24 Hospitalization History Reason Date(Month/Year) pelvis hematoma removal 07/19/2024 Hospitalized for [facility] 09/11/1991
--- OUTSIDE RECORDS SUMMARY | 2025-07-10 15:23 | XMS_ITS | Clinical Summary ---
Author Organization [facility] Address [address] [place] [id number] Care Team Providers Care Dental Practitioner Name Role Phone Dalton Tolliver MD Primary Care Provider Allergies Active Allergy Reactions Criticality Noted Date Comments Adhesive Rash,Blisters High 06/24/2024 Erythromycin Nausea & Vomiting Low 09/27/2022 Methylprednisolone Palpitations Low 04/09/2024 Medications cetirizine (ZyrTEC) 10 mg tablet Take 1 tablet (10 mg total) by mouth daily Active cholecalcifero l (VITAMIN D-3) 5,000 unit tablet Active garlic 1,000 mg capsule Take by mouth Activ e multivit-land law examiner [id number] tablet Take by mouth Active krill oil 500 mg capsule Take 2 tablets by mouth 1000 mg daily Active azelastine (ASTELIN) 137 mcg (0.1 %) nasal spray INSITLL 2 PUFFS INTO EACH NOSTRIL TWICE DAILY FOR 30 DAYS 05/29/20 24 Active ibuprofen (ADVIL,MOTRIN) 800 mg tablet Take 1 tablet (800 mg total) by mouth every 6 (six) hours as needed for pain Active acetaminophen (TYLENOL) 500 mg tablet TAKE 2 TABLETS (1000 MG) BY MOUTH 3 TIMES A DAY 07/15/20 24 Active albuterol HFA (Proventil HFA) 90 mcg/actuation inhaler every 6 hours Active EPINEPHrine 0.3 mg/0.3 mL auto-injection syringe as directed Injection as directed for 30 days 07/04/20 24 Active ipratropium (ATROVENT) 21 mcg (0.03 %) nasal spray 1-2 SPRAYS EACH NOSTRIL 1-2 TIMES PER DAY NEEDED DRAINAGE. 09/23/19 25 Active montelukast (SINGULAIR) 10 mg tablet TAKE 1 TABLET BY MOUTH EVERY DAY 90 tablet 1 02/20/20 25 Active losartan (COZAAR) 100 mg tablet TAKE 1 TABLET BY MOUTH EVERY DAY 90 tablet 1 02/20/20 25 Active hydroCHLOROthi azide (HYDRODIURIL) 25 mg tablet TAKE 1 TABLET BY MOUTH DAILY 90 tablet 1 05/15/20 25 Active tirzepatide, weight loss, (Zepbound) 12.5 mg/0.5 mL pen injector Inject 0.5 mL (12.5 mg total) under the skin every 7 days 2 mL 1 06/12/20 25 Active progesterone (PROMETRIUM) 200 mg capsule Take 1 capsule (200 mg total) by mouth daily 06/18/20 25 Active amoxicillin-cl avulanate (AUGMENTIN) 875-125 mg per tablet Take 1 tablet by mouth 2 (two) times a day for 10 days 20 tablet 07/03/[address] (NexIUM 24HR) 20 mg capsule 07/31/20 24 025 Discontinued(Bhavesh borrero Reported) tirzepatide, weight loss, (Zepbound) 10 mg/0.5 mL pen injector Inject 0.5 mL (10 mg total) under the skin every 7 days 2 mL 1 05/15/20 25 025 Discontinued amoxicillin-cl avulanate (AUGMENTIN) 875-125 mg per tablet Take 1 tablet by mouth 2 (two) times a day for 7 days 14 tablet 06/04/20 25 025 Active Problems Problem Noted Date Diagnosed Date Prediabetes 07/03/2025 Assessment & Plan (07/03/2025 12:08 PM CDT): A1c in normal range. Morbid obesity with BMI of 40.0-44.9, adult 02/09 Assessment & Plan (07/03/2025 12:09 PM CDT): Good response to Zepbound thus far. Increase dose to 15 mg weekly. Assessment & Plan (02/26/2025 10:27 AM CDT): Start Zepbound 2.5 mg weekly. Increase dose every 4 weeks as tolerated - send me a message through [employer]. We discussed possible side effects including nausea and vomiting. Counseling provided on healthy lifestyle. Exercise 30 minutes per day 5x weekly. Eat heart healthy (Mediterranean) diet of fruits, vegetables, and whole grains; avoid saturated fats and excess sweets. Allergic rhinitis 02/26/2025 Assessment & Plan (02/26/2025 10:27 AM CDT): Continue Flonase. Menopause 02/26/2025 Assessment & Plan (02/26/2025 10:26 AM CDT): She is now on estrogen and progesterone pallets. Neuropathy 02/26/2025 Assessment & Plan (02/26/2025 12:53 PM CDT): Possibly related to prediabetes. Start alpha lipoic acid. S/P total hysterectomy 08/14/2024 Dysfunction of left eustachian tube 08/14/2024 Assessment & Plan (08/14/2024 11:06 AM BUCKLE WIRE INSERTER): Seeing ENT. Spotting 08/14/2024 Assessment & Plan (08/14/2024 11:07 AM BUCKLE WIRE INSERTER): I recommended that she contact her OBGYN. Tachycardia 08/14/2024 Assessment & Plan (08/14/2024 11:08 AM BUCKLE WIRE INSERTER): This has resolved. Workup in the ED was unremarkable. She is feeling much better and is back to work. I suspect the tachycardia was related to her two recent surgeries. Her anemia will continue to improve now that the hematoma has been evacuated. If tachycardia recurs, we will evaluate further with labs and Holter monitoring. Myopia of both eyes with regular astigmatism Assessment & Plan (06/07/2024 9:38 AM CDT): Duplicate chart See Dr. Rosibel Exam Assessment & Plan (06/07/2024 9:16 AM CDT): GANG INVESTIGATOR Presbyopia ABMD Irregular epithelium/ Interface haze Recommend waiting 3 months Discussed doing PRK enhancement OS Return 3 months Continue James 128 ointment OU Continue art tears PRN Strep throat 02/15/2024 Assessment & Plan (02/15/2024 8:20 AM CDT): Rx'ed Augmentin. Subacute otitis media 02/15/2024 Assessment & Plan (02/15/2024 8:19 AM CDT): Rx'ed Augmentin, although this is primarily targeted at her presumed strep throat, which is new. I recommended that she call her ENT and schedule an expedited appointment given the persistence of her sinusitis and otitis media symptoms despite two rounds of antibiotics and tympanostomies. Hypertension 02/15/2024 Assessment & Plan (07/03/2025 12:08 PM CDT): At goal on current therapy. Assessment & Plan (02/26/2025 12:52 PM CDT): At goal on current therapy. Assessment & Plan (08/14/2024 11:06 AM BUCKLE WIRE INSERTER): BP in reasonable range on current regimen. Assessment & Plan (02/15/2024 8:18 AM CDT): Mildly elevated today in the setting of illness. Will monitor. Continue current medications. Sinusitis 02/14/2024 Assessment & Plan (07/03/2025 12:08 PM CDT): Augmentin for 10 days. Assessment & Plan (02/15/2024 8:19 AM CDT): Rx'ed Augmentin, although this is primarily targeted at her presumed strep throat, which is new. I recommended that she call her ENT and schedule an expedited appointment given the persistence of her sinusitis and otitis media symptoms despite two rounds of antibiotics and tympanostomies. Trochanteric bursitis of right hip 02/14/2024 Assessment & Plan (02/15/2024 8:20 AM CDT): NSAIDs PRN. Consider PT. No need for imaging at this time. KETURAH (obstructive sleep apnea) 02/14/2024 Assessment & Plan (07/08/2025 3:32 PM CDT): Images from the original note were not included. Patient needs new CPAP machine. - She is compliant in her usage of current CPAP machine. - It benefits her health by helping to control KETURAH and sleep apnea. - Current settings are Auto: min 5 cm H2O, max 15 cm H2O. - She is seeking a replacement because the machine is loud and old. Insurance information Assessment & Plan (02/26/2025 10:26 AM CDT): Continue CPAP. Will also add Zepbound. Assessment & Plan (02/14/2024 3:00 PM CDT): Refer to sleep medicine for new sleep study. Pain of right thumb 01/11/2021 Encounters Date Type Department Care Team Description 07/07/2025 Orders Only [facility] [address] [place] [phone] Dalton Tolliver MD Lead exposure (Primary Dx) 07/06/2025 Results Follow-Up [facility] [address] [place] [phone] Dalton Tolliver MD Iron profile w/ IBC, Ferritin, Lipid panel 07/03/2025 12:02 PM CDT - 07/03/2025 11:59 PM CDT Hospital Encounter [facility] [address] [place], [place] [id number] Lead exposure Discharge Disposition: Discharge to home or self care 07/03/2025 11:15 AM CDT Office Visit [facility] [address] [place] [phone] Dalton Tolliver MD Morbid obesity with BMI of 40.0-44.9, adult (HCC) (Primary Dx); Prediabetes; Primary hypertension; Lead exposure; Iron deficiency; Hyperlipidemia, unspecified hyperlipidemia type; Sinusitis, unspecified chronicity, unspecified location; KETURAH (obstructive sleep apnea) 07/03/2025 [facility] [address] [place] [phone] Dalton Tolliver MD 06/19/2025 Telephone [facility] [address] [place] [phone] Dalton Tolliver MD from Last 3 Months Immunizations Immunization Administration Dates Next Due Pneumococcal Polysaccharide PPV23 10/22/2019 Tdap 07/14/2016 Surgical History Surgery Date Site/Laterality Comments ANKLE SURGERY Medical History Medical History Date Comments Hypertension Back pain Asthma Bronchitis Chronic lung disease Pneumonia Sleep apnea Acid reflux Family History Medical History Relation Name Comments Cancer Father No Known Problems Mother Relation Name Status Comments Father Mother Social History Tobacco Use Types Packs/Day Years Used Date Smoking Tobacco: Never Smokeless Tobacco: Never Tobacco Cessation:Counseling Given: Not Answered AUDIT-C Answer Date Recorded Q1: How often [...] on file Legal Sex Female 6:44 PM BUCKLE WIRE INSERTER Gender Identity Female 10/21/2022 7:37 PM BUCKLE WIRE INSERTER Sexual Orientation Straight 10/21/2022 7: 37 PM BUCKLE WIRE INSERTER Obstetrics History Last Filed Vital Signs Vital Sign Reading Time Taken Comments Blood Pressure 112/75 07/03/2025 11:18 AM CDT Pulse 68 07/03/2025 11:18 AM CDT Temperature 37.8 C (100.1 F) 10/25/2024 6:45 PM BUCKLE WIRE INSERTER Respiratory Rate 22 10/25/2024 6:45 PM BUCKLE WIRE INSERTER Oxygen Saturation 97% 07/03/2025 11:18 AM CDT Inhaled Oxygen Concentration - - Weight 129.3 kg (285 lb) 07/03/2025 11:18 AM CDT Height 172.7 cm (5' 8) 07/03/2025 11:18 AM CDT Body Mass Index 43.33 07/03/2025 11:18 AM CDT Plan of Treatment Health Maintenance Due Date Last Done Comments Breast Cancer Screening-Mammogram 1972 Colon Cancer Screening-Colonoscopy 1972 Depression Screening 1972 Hepatitis C Screening 1972 Hepatitis B Screening 1990 Regular Well Visit/Exam 18-64 1990 Zoster Vaccine (1 of 2) 2022 Covid-19 Vaccine (3 - 2024-2 6 season) 2025 05/20/2021, 04/28/2021 Influenza Vaccine (#1) 2025 DTaP/Tdap/Td Vaccine (2 - Td or Tdap) 07/14/2026 07/14/2016 Pneumococcal vaccine <65 Aged Out 10/22/2019 No longer eligible based on patient's age to complete this topic Procedures Procedure Name Priority Date/Time Associated Diagnosis Comments LIPID PANEL Routine 07/03/2025 11:42 AM CDT Hyperlipidemia, unspecified hyperlipidemia type FERRITIN Routine 07/03/2025 11:42 AM CDT Iron deficiency IRON PROFILE W/ IBC Routine 07/03/2025 1 1:42 AM CDT Iron deficiency POCT HEMOGLOBIN A1C Routine 07/03/2025 1 1:24 AM CDT Prediabetes from Last 3 Months Results * (ABNORMAL) Iron profile w/ IBC (07/03/2025 11:42 AM CDT) Iron 40.9 37.0 - 145.0 ug/dL [facility] Total Iron Binding Capacity 267.9 ug/dL [facility] Unsaturated Iron Binding Capacity 227.0 112.0 - 346.0 ug/dL [facility] % Iron Saturation 15.3(L) 25.0 - 45.0 % [facility] Blood 07/03/2025 11:4 2 AM CDT 07/03/2025 12:01 PM CDT Dalton Tolliver MD LAB BLOOD ORDERABLES Fi nal Result [facility] [address] [facility] [address] [place] [address] * Ferritin (07/03/2025 11:42 AM CDT) Ferritin 78.45 13.00 - 150.00 ng/mL [facility] Blood 07/03/2025 11:4 2 AM CDT 07/03/2025 12:01 PM CDT Dalton Tolliver MD LAB BLOOD ORDERABLES Fi nal Result Performing Organization Address [facility] Co de Phone Number ANIKA BEDOLLA [address] [facility] [address] [place] [address] * (ABNORMAL) Lipid panel (07/03/2025 11:42 AM CDT) Triglyceride 156(H) 0 - 150 mg/dL [facility] Cholesterol 169 0 - 200 mg/dL [facility] HDL 47 >45 mg/dL [facility] LDL-Calculated 91 mg/dL [facility] CHOL/HDL Risk Ratio 4 Ratio [facility] LDL/HDL Risk Ratio 2 Ratio [facility] Blood 07/03/2025 11:4 2 AM CDT 07/03/2025 12:01 PM CDT Dalton Tolliver MD LAB BLOOD ORDERABLES Fi nal Result Performing Organization Address City/[facility]/ZIP Co de Phone Number [facility]IKA BEDOLLA [address] [facility] [address] * POCT hemoglobin A1c (07/03/2025 11:24 AM CDT) Hemoglobin A1C, POC 5.1 4.0 - 5.6 % Capillary blood 07/03/2025 1 1:24 AM CDT Dalton Tolliver MD POINT OF CARE TEST GUSTAVO RICKS Final Result from Last 3 Months Insurance [employer] [place] [employer] [place] [employer] [place] Care Teams Dental Practitioner Relationship Specialty Start Date End Date Dalton Tolliver MD PCP - General Endocrinology Diabetes & Metabolism 06/07/24
== END 2025-07-10 14:57 | disposition home or self-care (01) ==
LOC: ANHFOHIMG 15:00
PROVIDERS: PCP Internal Medicine; Visit Provider Obstetrics & Gynecology
DX: Z12.31 Encounter for screening mammogram for malignant neoplasm of breast (principal)
CPT/HCPCS: 77063; 77067